=== PATIENT | female | born 1975 | race Caucasian/White ===

== ENCOUNTER 2017-06-08 05:52 | Day surgery (SDC) | payer OTHER ==
[2017-06-06 12:31] LABS: Absolute Lymphocytes (CBC) 1.9 K/uL (0.7-4.9); Absolute Monocytes 0.4 K/uL (0.1-1.3); Absolute Neutrophil 3.2 K/uL (1.8-8.0); Basophils % 0.7 % (0-1.3); Hematocrit 41.9 % (36.0-45.0); Lymphocytes % 33.7 % (15.3-44.8); MCH 30.4 pg (27.0-35.0); MPV 10.6 fL (7.6-11.3); Monocytes % 6.4 % (3.3-12.3); RBC Red Blood Cell Count 4.71 M/uL (3.86-4.86)
[2017-06-08] MEDS ORDERED: SCOPOLAMINE HYDROBROMIDE PATCH TD ONE (06:30)
[2017-06-08] MEDS ORDERED: Ringers Lactate 1,000 ML IV ONE (06:30)
[2017-06-08] MEDS ORDERED: PROPOFOL 200 MG/20 ML VIAL IV ONE (07:17)
[2017-06-08] MEDS ORDERED: LIDOCAINE 2% MPF 5 ML VIAL ONE (07:17)
[2017-06-08] MEDS ORDERED: ONDANSETRON 4 MG/2 ML VIAL ONE (07:17)
[2017-06-08] MEDS ORDERED: MIDAZOLAM HCL 2 MG/2 ML INJ ONE (07:17)
[2017-06-08] MEDS ORDERED: FENTANYL CITR 250 MCG/5 ML ONE (07:17)
[2017-06-08] MEDS ORDERED: ROCURONIUM 50 MG/5 ML VIAL IV ONE (07:17)
[2017-06-08] MEDS ORDERED: DEXAMETHASONE 10 MG/ML VIAL ONE (08:02)
[2017-06-08] MEDS ORDERED: KETOROLAC 30 MG/ML INJ ONE (09:09)
[2017-06-08] MEDS ORDERED: GLYCOPYRROLATE 0.2 MG/ML SYR ONE (09:09)
[2017-06-08] MEDS ORDERED: NEOSTIGMINE 1 MG/ML -5 ML SYRINGE ONE (09:09)
[2017-06-08] MEDS ORDERED: Mastisol Adhesive Liq ONE (09:22)
[2017-06-08] MEDS: MEPERIDINE HCL 50 MG/ML AMP ONE ×2 (09:27→09:44)
[2017-06-08] MEDS ORDERED: PROMETHAZINE 25 MG/ML VIAL ONE (09:53)
[2017-06-08] MEDS ORDERED: MEPERIDINE HCL 50 MG/ML AMP ONE (10:10)
[2017-06-08] MEDS ORDERED: METOCLOPRAMIDE 10 MG/2mL INJ ONE (10:36)
[2017-06-08 14:48] VITALS: BP 120/75; TEMP 97.3; O2SAT 98
--- NOTE | 2017-06-08 20:19 | OP ---
Date of Procedure: 06/08/2017 Surgeon: Helga Brown MD [employer] Agent: Beth Lee. Preoperative Diagnoses: Left lower quadrant pain, possible endometriosis, history of adenomyosis, st atus post hysterectomy, and Crohn disease and urinary frequency. Postoperative Diagnoses: Left lower quadrant pain, possible endometriosis, history of adenomyosis, s tatus post hysterectomy, and Crohn disease and urinary frequency and adhesions of the colon. No endo metriosis found in the pelvic peritoneum. Procedures Performed: Diagnostic laparoscopy, lysis of sigmoid adhesions, right oophorectomy. Anesthesia: General. Estimated Blood Loss: Minimal. Specimens: Right ovary. Complications: No complications. Drains: No drains. Condition: Stable. Indications: The patient is a 41-year-old, who presented with increasing pelvic pain over the last y ear, much worse progressively, more intense in the left lower quadrant. The patient had complaints o f pelvic pain and heavy bleeding. She had underwent a laparoscopic hysterectomy by me in 2013. She has done very well for the 2-1/2 years postop until this problem restarted. She has been since diagn osed with Crohn disease. She has been managed with azathioprine and Linzess and she has been doing w ell from her Crohn disease standpoint. After working up with a transvaginal ultrasound, there were n o pelvic masses found. The patient continued to have pain. Pain is much worse with intercourse as w ell. So, plan was to discuss multiple options she has including a depot medroxyprogesterone shot and oral contraceptive, which is probably not the best given her age and her other comorbidities, and th en the option of diagnostic laparoscopy to look in the pelvic cavity and possibly removing the right ovary if no other pathology is found. The patient was consented. We also discussed preoperatively a bout postop hormone therapy that she would be placed on estradiol right after the surgery since she i s only 41 years old. Description Of Procedure: After informed consent was verified, the patient was brought to the OR, pl aced in a supine fashion on the operating table after general anesthesia was given. She was placed i n a dorsal lithotomy position using Amaury stirrups. Pelvic exam was performed. No abnormalities det ected. Abdomen, vulva, vagina, and perineum were prepped and draped in a sterile fashion. Gold blanco glenda to drain the bladder. The sponge on a stick was placed in the vagina for retraction of the vagin al cuff. A 1-cm infraumbilical incision was made with a scalpel using the open laparoscopy technique. Fascia was incised and tagged on both sides. A Macario trocar was introduced after entering the peritoneum b luntly with the help of a finger. Camera was then placed. The site of entry was checked. Liver new eared to be normal. The upper peritoneal surfaces were surveyed closely and there was no evidence of endometriosis. The omentum checked out and the patient was placed in T-nolen and pelvic peritoneum i nspected. First the 5 mm left lower quadrant suprapubic 5 mm ports were placed under direct vision. The pelvic cavity was visualized. The right ovary was present on the IP pedicle. Both tubes were a bsent. The vaginal cuff was completely unremarkable. On the left lateral wall there were adhesions of the colon that started right below the level of the oophorectomy on the left side and went all the way down into the posterior cul-de-sac. There were no endometriotic lesions over the bladder perito neum or at the cuff. Once the left side was well visualized and made sure that there was no remnant of the ovary or any endometriosis present, moved on to the adhesions. They were picked up with mel h graspers and taken down with the help of sharp scissors. All the adhesions were taken down systema tically by sharp dissection all the way down in the posterior cul-de-sac as well. There were dense a dhesions at places and these were with push-spread technique and then taken down with a sha rp dissection with scissors. After all the adhesions were taken down, the sigmoid was free. The pos terior cul-de-sac was freed. This was done because the patient had complains of dyspareunia as well that was significant for her. Moved on to the right ovary, here the pedicle was free. No evidence of endometriosis, in which case we discussed about removal of the ovary, so performed this. 0 Vicryl loops were taken and 3 loops were placed on the IP pedicle and then the ovary was taken down with the help of scissors, placed in a specimen bag and pulled out. The pelvic cavity was thoroughl y irrigated and suctioned. There was excellent hemostasis. Spot below the vaginal cuff was cauteriz ed for hemostasis with the bipolar. Then, Interceed was placed laying up from the bladder all the wa y down, spreading across the vaginal cuff onto the posterior cul-de-sac to hopefully prevent more adh esions from the bowel. Then the patient was reversed from T-nolen. The gas was desufflated. All the trocars removed under direct vision. Macario removed as well. Fascia closed with the help of 0 Vicr yl in a [id number] fashion. All the skin incisions closed with the help of 4-0 Vicryl sutures a nd Steri-Strips. Gold and the vaginal sponge were all removed. EBL was minimal. The patient amanda ated the procedure well. She was recovered from anesthesia in the OR and taken to PACU in stable con dition. She will follow with me in 1 week. FINN Voice ID: [id number] Report ID: [id number]
== END 2017-06-08 10:58 | disposition home or self-care (01) ==
LOC: OR 05:52
PROVIDERS: ATTEND Obstetrics & Gynecology
PROC: 0UT04ZZ Resection of Right Ovary, Percutaneous Endoscopic Approach (ICD-10-PCS; principal; 2017-06-08 07:00)
DX: R10.32 Left lower quadrant pain (principal); N83.11 Corpus luteum cyst of right ovary; K66.0 Peritoneal adhesions (postprocedural) (postinfection); K50.90 Crohn's disease, unspecified, without complications; R35.0 Frequency of micturition; I10 Essential (primary) hypertension; J45.909 Unspecified asthma, uncomplicated; Z90.710 Acquired absence of both cervix and uterus; Z88.6 Allergy status to analgesic agent
CPT/HCPCS: 36415; 85025; 86850; 86900; 86901; 88305; J1100; J2175; J2250; J2405; J2550; J2710; J2765

== ENCOUNTER 2017-08-20 17:33 | Emergency (ER) | payer OTHER ==
[2017-08-20 18:16] LABS: Urine Blood NEGATIVE (NEG); Urine Glucose NEGATIVE (NEG); Urine Protein NEGATIVE (NEG); Urine pH 6.5 (5.0-7.0)
[2017-08-20] MEDS ORDERED: NA CHLORIDE 0.9% 1,000 ML ONE (18:24)
[2017-08-20] MEDS ORDERED: ONDANSETRON 4 MG/2 ML VIAL ONE ×2 (18:24→20:17)
[2017-08-20] MEDS ORDERED: MEPERIDINE HCL 50 MG/ML AMP ONE (18:24)
[2017-08-20 18:36] LABS: Absolute Monocytes 0.4 K/uL (0.1-1.3); Absolute Neutrophil 2.6 K/uL (1.8-8.0); Basophils % 0.7 % (0-1.3); Eosinophils % 2.2 % (0-4.4); Hematocrit 37.6 % (36.0-45.0); Lymphocytes % 37.9 % (15.3-44.8); MCH 31.1 pg (27.0-35.0); MCV 87.4 fL (80-100); MPV 10.2 fL (7.6-11.3)
[2017-08-20 18:51] LABS: Potassium 3.6 mEq/L (3.6-5.0)
[2017-08-20 18:57] LABS: Urine Bacteria <20 /HPF (<20); Urine Culture Reflex Order NOT NEEDED; Urine RBC <5 /HPF (NONE SEEN)
[2017-08-20 18:57] LABS: Albumin 4.2 g/dL (3.2-5.5); Bilirubin Direct 0.1 mg/dL (0-0.2); Bilirubin Total 0.3 mg/dL (0.3-1.2); Protein, Total 7.5 g/dL (6.0-8.3)
--- NOTE | 2017-08-20 19:27 | RAD REPORT ---
EXAM DESCRIPTION: CT - Abdomen Pelvis W Contrast - 08/20/2017 6:51 pm CLINICAL HISTORY: Abdominal pain with vomiting left upper quadrant pain COMPARISON: none. TECHNIQUE: Computed axial tomography of the abdomen pelvis was obtained. 100 cc Isovue-300 was admin istered intravenously. Oral contrast was not requested which limits evaluation of bowel. All CT scans are performed using dose optimization technique as appropriate and may include automated exposure control or mA/KV adjustment according to patient size. FINDINGS: The liver, spleen, pancreas, adrenal and kidneys appear unremarkable. The gallbladder has been removed. A hysterectomy has been performed. There is no evidence of diverticulitis. An adnexal mass is not seen IMPRESSION: No acute abnormality is displayed.
[2017-08-20] MEDS ORDERED: PROMETHAZINE 25 MG/ML VIAL ONE (20:54)
--- NOTE | 2017-08-20 22:01 | EDPHYS ---
Physician Documentation [facility] Name: Gifty Parker Age: 41 yrs Sex: Female : 1975 Arrival Date: 08/20/2017 Time: 17:36 Bed 25 Private MD: Marcio Wilson ED Physician Leonardo Barnes HPI: 08/20 19:00 This 41 yrs old Female presents to ER via Ambulatory with complaints of pm1 Nausea/Vomiting. 19:00 The patient presents to the emergency department with nausea, vomiting, diarrhea. pm1 Onset: The symptoms/episode began/occurred 3 day(s) ago. Possible causes: flare up of bowel problem, Crohn's disease. The symptoms are aggravated by food , The symptoms are alleviated by nothing. Associated signs and symptoms: Pertinent positives: abdominal pain, diarrhea, nausea, vomiting, Pertinent negatives: constipation. Severity of symptoms: in the emergency department the symptoms are worse. The patient has experienced similar episodes in the past, multiple times. 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 N/A - Hysterectomy aj Historical: - Allergies: 17:41 Morphine; aj 17:41 Hydrocodone-Acetaminophen; aj 17:41 Rifampin; aj - Home Meds: 17:41 Xifaxan 550 mg oral tab 1 tab 3 times per day [Active]; Dexilant 60 mg oral CpDB 1 cap aj once daily [Active]; azathioprine 50 mg Oral tab 1 tab once daily [Active]; estradiol 1 mg Oral tab 1 tab once daily [Active]; quetiapine 25 mg oral tab 1 tab 3 times per day [Active]; metoprolol tartrate 25 mg Oral tab 1 tab once daily [Active]; - PMHx: 17:41 Anxiety; High Cholesterol; Hypertension; provastatin; Crohn's; aj - PSHx: 17:41 Hysterectomy; Appendectomy; Cholecystectomy; aj - Immunization history:: Adult Immunizations up to date. - Social history:: Smoking status: Patient/guardian denies using tobacco. - Ebola Screening: : Patient negative for fever greater than or equal to 101.5 degrees Fahrenheit, and additional compatible Ebola Virus Disease symptoms Patient denies exposure to infectious person Patient denies travel to an Ebola-affected area in the 21 days before illness onset No symptoms or risks identified at this time. ROS: 19:00 Constitutional: Negative for fever, chills, and weight loss, Eyes: Negative for injury, pm1 pain, redness, and discharge, ENT: Negative for injury, pain, and discharge, Neck: Negative for injury, pain, and swelling, Cardiovascular: Negative for chest pain, palpitations, and edema, Respiratory: Negative for shortness of breath, cough, wheezing, and pleuritic chest pain. 19:00 Back: Negative for injury and pain, : Negative for injury, bleeding, discharge, and swelling, MS/Extremity: Negative for injury and deformity, Skin: Negative for injury, rash, and discoloration, Neuro: Negative for headache, weakness, numbness, tingling, and seizure. 19:00 Abdomen/GI: Positive for abdominal pain, nausea, vomiting, and diarrhea, of the left upper quadrant and left lower quadrant, Negative for constipation. Exam: 19:00 Constitutional: This is a well developed, well nourished patient who is awake, alert, pm1 and in no acute distress. Head/Face: Normocephalic, atraumatic. Eyes: Pupils equal round and reactive to light, extra-ocular motions intact. Lids and lashes normal. Conjunctiva and sclera are non-icteric and not injected. Cornea within normal limits. Periorbital areas with no swelling, redness, or edema. ENT: Nares patent. No nasal discharge, no septal abnormalities noted. Tympanic membranes are normal and external auditory canals are clear. Oropharynx with no redness, swelling, or masses, exudates, or evidence of obstruction, uvula midline. Mucous membranes moist. Neck: Trachea midline, no thyromegaly or masses palpated, and no cervical lymphadenopathy. Supple, full range of motion without nuchal rigidity, or vertebral point tenderness. No Meningismus. Chest/axilla: Normal chest wall appearance and motion. Nontender with no deformity. No lesions are appreciated. Cardiovascular: Regular rate and rhythm with a normal S1 and S2. No gallops, murmurs, or rubs. No pulse deficits. Respiratory: Lungs have equal breath sounds bilaterally, clear to auscultation and percussion. No rales, rhonchi or wheezes noted. No increased work of breathing, no retractions or nasal flaring. 19:00 Back: No spinal tenderness. No costovertebral tenderness. Full range of motion. Skin: Warm, dry with normal turgor. Normal color with no rashes, no lesions, and no evidence of cellulitis. MS/ Extremity: Pulses equal, no cyanosis. Neurovascular intact. Full, normal range of motion. 19:00 Abdomen/GI: Inspection: abdomen appears normal, Bowel sounds: normal, Palpation: abdomen is soft and non-tender, mass, is not appreciated, rebound tenderness, is not appreciated. 19:00 Neuro: Orientation: is normal, Motor: moves all fours, strength is normal, strength is 5/5 in all extremities. Vital Signs: 17:41 BP 139 / 89; Pulse 66; Resp 17; Temp 98.0; Pulse Ox 99% on R/A; Weight 74.39 kg; Height aj 5 ft. 4 in. (162.56 cm); 19:10 BP 112 / 75; Pulse 52; Resp 16; Pulse Ox 99% on R/A; kr2 20:33 BP 104 / 67; Pulse 56; Resp 17; Pulse Ox 100% on R/A; kr2 22:09 BP 110 / 65; Pulse 60; Resp 16; Pulse Ox 99% on R/A; kr2 17:41 Body Mass Index 28.15 (74.39 kg, 162.56 cm) aj MDM: 18:01 Patient medically screened. pm1 21:50 Physician consultation: Elisabeth Hooker MD was contacted at 21:50, regarding patient's pm1 condition, Patient requested admission for further evaluation and treatment of vomiting and diarrhea. Discussed patient's condition and presentation with hospitalist. Patient without any active vomiting or diarrhea in the ER. Discussed patient's labs and CT scan and patient does not meet any admission criteria. Likely viral gastroenteritis. Patient will be discharged to follow up with her GI or PCP. 21:58 Data reviewed: vital signs. Data interpreted: Pulse oximetry: on room air is 100 %. pm1 Interpretation: normal. 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 22:00 ED course: Offered patient pain and antiemetics prescription. Patient refused saying pm1 she has Zofran, Phenergan, and Bentyl at home already from Dr. Benoit. 08/20 18:09 Order name: Basic Metabolic Panel; Complete Time: 19:27 pm1 08/20 18:09 Order name: CBC with Diff; Complete Time: 19:27 pm1 08/20 18:09 Order name: Creatinine for Radiology; Complete Time: 19:27 pm1 08/20 18:09 Order name: Hepatic Function; Complete Time: 19:27 pm1 08/20 18:09 Order name: Lipase; Complete Time: 19:27 pm1 08/20 18:09 Order name: Urine Microscopic Only; Complete Time: 19:27 pm1 08/20 18:09 Order name: Urine Test (obtain specimen); Complete Time: 18:16 pm1 08/20 18:09 Order name: CT Abd/Pelvis - W/Contrast: IV contrast only; Complete Time: 19:45 pm1 08/20 18:10 Order name: Urine Dipstick--Ancillary (enter results); Complete Time: 19:27 em1 08/20 18:09 Order name: IV Saline Lock; Complete Time: 18:22 pm1 08/20 18:09 Order name: Labs collected and sent; Complete Time: 18:22 pm1 08/20 18:09 Order name: Urine Dipstick-Ancillary (obtain specimen); Complete Time: 18:35 pm1 08/20 18:10 Order name: Urine Dipstick-Ancillary (obtain specimen); Complete Time: 18:36 em1 Administered Medications: 18:35 Drug: NS 0.9% 1000 ml Route: IV; Rate: 1000 ml; Site: left antecubital; kr2 20:00 Follow up: Response: No adverse reaction; IV Status: Completed infusion kr2 18:35 Drug: Demerol 50 mg Route: IVP; Site: left antecubital; kr2 19:00 Follow up: Response: No adverse reaction; Pain is decreased kr2 18:35 Drug: Zofran 4 mg Route: IVP; Site: left antecubital; kr2 22:10 Follow up: Response: No adverse reaction kr2 20:18 Drug: Zofran 4 mg Route: IVP; Site: left antecubital; kr2 20:30 Follow up: Response: No adverse reaction; Nausea unchanged kr2 21:00 Drug: Phenergan 25 mg Route: IVP; Site: left antecubital; kr2 22:10 Follow up: Response: No adverse reaction; Vomiting decreased kr2 Disposition: 08/21 07:58 Co-signature as Attending Physician, Leonardo Barnes MD. Disposition: 08/20/17 22:00 Discharged to Home. Impression: Nausea and vomiting, Diarrhea, unspecified. - Condition is Stable. - Discharge Instructions: Diarrhea, Nausea and Vomiting, Viral Gastroenteritis. - Medication Reconciliation Form, Thank You Letter form. - Follow up: Emergency Department; When: As needed; Reason: Worsening of condition. Follow up: Jf Benoit MD; When: 2 - 3 days; Reason: Recheck today's complaints, Continuance of care, Re-evaluation by your physician. - Problem is new. - Symptoms have improved. Signatures: Dispatcher [employer] EDMS aMrisol Garcia, RN RN Clifford Tirado em1 Arden Medeiros, CANOE INSPECTOR CANOE INSPECTOR pm1 Leonardo Barnes MD MD Luly Montoya RN RN kr2 Corrections: (The following items were deleted from the chart) 08/20 22:11 22:00 08/20/2017 22:00 Discharged to Home. Impression: Nausea and vomiting; Diarrhea, kr2 unspecified. Condition is Stable. Forms are Medication Reconciliation Form, Thank You Letter, Antibiotic Education, Prescription Opioid Use. Follow up: Emergency Department; When: As needed; Reason: Worsening of condition. Follow up: Jf Benoit; When: 2 - 3 days; Reason: Recheck today's complaints, Continuance of care, Re-evaluation by your physician. Problem is new. Symptoms have improved. pm1
--- NOTE | 2017-08-20 22:01 | ER ---
Nurse's Notes [facility] Name: Gifty Parker Age: 41 yrs Sex: Female : 1975 Arrival Date: 08/20/2017 Time: 17:36 Bed 25 Private MD: Marcio Wilson Diagnosis: Nausea and vomiting;Diarrhea, unspecified Presentation: 08/20 17:39 Presenting complaint: Patient states: Vomiting for 3 days. Transition of care: patient aj was not received from another setting of care. Onset of symptoms was August 18, 2017. Risk Assessment: Do you want to hurt yourself or someone else? Patient reports no desire to harm self or others. Initial Sepsis Screen: Does the patient meet any 2 criteria? No. Patient's initial sepsis screen is negative. Does the patient have a suspected source of infection? No. Patient's initial sepsis screen is negative. Care prior to arrival: Medication(s) given: Phenergan, 25 mg. 17:39 Method Of Arrival: Ambulatory aj 17:39 Acuity: TAMAR 3 aj Triage Assessment: 17:41 General: Appears in no apparent distress. comfortable, Behavior is calm, cooperative, aj appropriate for age. Pain: Denies pain. Neuro: Level of Consciousness is awake, alert, obeys commands, Oriented to person, place, time, situation, Appropriate for age. Respiratory: Airway is patent Respiratory effort is even, unlabored, Respiratory pattern is regular, symmetrical. GI: Reports nausea, vomiting. Derm: Skin is intact, is healthy with good turgor, Skin is pink, warm \T\ dry. normal. 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 - Hysterectomy aj Historical: - Allergies: 17:41 Morphine; aj 17:41 Hydrocodone-Acetaminophen; aj 17:41 Rifampin; aj - Home Meds: 17:41 Xifaxan 550 mg oral tab 1 tab 3 times per day [Active]; Dexilant 60 mg oral CpDB 1 cap aj once daily [Active]; azathioprine 50 mg Oral tab 1 tab once daily [Active]; estradiol 1 mg Oral tab 1 tab once daily [Active]; quetiapine 25 mg oral tab 1 tab 3 times per day [Active]; metoprolol tartrate 25 mg Oral tab 1 tab once daily [Active]; - PMHx: 17:41 Anxiety; High Cholesterol; Hypertension; provastatin; Crohn's; aj - PSHx: 17:41 Hysterectomy; Appendectomy; Cholecystectomy; aj - Immunization history:: Adult Immunizations up to date. - Social history:: Smoking status: Patient/guardian denies using tobacco. - Ebola Screening: : Patient negative for fever greater than or equal to 101.5 degrees Fahrenheit, and additional compatible Ebola Virus Disease symptoms Patient denies exposure to infectious person Patient denies travel to an Ebola-affected area in the 21 days before illness onset No symptoms or risks identified at this time. Screenin:00 Abuse screen: Denies threats or abuse. Denies injuries from another. Nutritional kr2 screening: No deficits noted. Tuberculosis screening: No symptoms or risk factors identified. Fall Risk None identified. Assessment: 18:00 General: Appears in no apparent distress. uncomfortable, well groomed, well developed, kr2 well nourished, Behavior is calm, cooperative, appropriate for age. Pain: Complains of pain in left upper quadrant and left lower quadrant Pain currently is 8 out of 10 on a pain scale. Quality of pain is described as crampy, sharp, tender, Is continuous, Alleviated by nothing. Aggravated by eating, drinking, repositioning, Noted to be grimacing. Neuro: Level of Consciousness is awake, alert, obeys commands, Oriented to person, place, time, situation, Appropriate for age. Cardiovascular: Capillary refill < 3 seconds in bilateral fingers Patient's skin is warm and dry. Respiratory: Airway is patent Respiratory effort is even, unlabored, Respiratory pattern is regular, symmetrical. GI: Abdomen is flat, non-distended, Bowel sounds present X 4 quads. hyperactive in left lower quadrant Reports diarrhea, intolerance of fluids, intolerance of food, nausea, vomiting, history of Crohn's. : No signs and/or symptoms were reported regarding the genitourinary system. Urine is clear. EENT: Oral mucosa is moist. Derm: Skin is intact, is healthy with good turgor, Skin is dry, Skin is pale, pink, Skin temperature is warm. Musculoskeletal: Circulation, motion, and sensation intact. 19:11 Reassessment: Patient appears in no apparent distress at this time. Patient and/or kr2 family updated on plan of care and expected duration. Pain level reassessed. Patient is alert, oriented x 3, equal unlabored respirations, skin warm/dry/pink. 20:32 Reassessment: Patient appears in no apparent distress at this time. Patient and/or kr2 family updated on plan of care and expected duration. Pain level reassessed. Patient is alert, oriented x 3, equal unlabored respirations, skin warm/dry/pink. Patient states she is still having mild pain and was dry heaving. Provider notified. 22:08 Reassessment: Patient appears in no apparent distress at this time. Patient and/or kr2 family updated on plan of care and expected duration. Pain level reassessed. Patient is alert, oriented x 3, equal unlabored respirations, skin warm/dry/pink. No further vomiting after receiving phenergan IVP. Vital Signs: 17:41 BP 139 / 89; Pulse 66; Resp 17; Temp 98.0; Pulse Ox 99% on R/A; Weight 74.39 kg; Height aj 5 ft. 4 in. (162.56 cm); 19:10 BP 112 / 75; Pulse 52; Resp 16; Pulse Ox 99% on R/A; kr2 20:33 BP 104 / 67; Pulse 56; Resp 17; Pulse Ox 100% on R/A; kr2 22:09 BP 110 / 65; Pulse 60; Resp 16; Pulse Ox 99% on R/A; kr2 17:41 Body Mass Index 28.15 (74.39 kg, 162.56 cm) aj ED Course: 17:36 Patient arrived in ED. sb2 17:36 Marcio Wilson MD is Private Physician. sb2 17:39 Triage completed. aj 17:41 Arm band placed on left wrist. Patient placed in waiting room. aj 18:00 Patient has correct armband on for positive identification. Bed in low position. Call kr2 light in reach. Side rails up X 1. Pulse ox on. NIBP on. Door closed. Warm blanket given. Head of bed elevated. 18:01 Arden Medeiros NP is PHCP. pm1 18:01 Leonardo Barnes MD is Attending Physician. pm1 18:10 Luly Montoya RN is Primary Nurse. kr2 18:22 Inserted saline lock: 20 gauge in left antecubital area, using aseptic technique. Blood aj collected. 18:51 CT Abd/Pelvis - W/Contrast: IV contrast only In Process Unspecified. EDMS 19:09 No provider procedures requiring assistance completed. kr2 21:59 Jf Benoit MD is Referral Physician. pm1 22:09 IV discontinued, intact, bleeding controlled, No redness/swelling at site. Pressure kr2 dressing applied. Administered Medications: 18:35 Drug: NS 0.9% 1000 ml Route: IV; Rate: 1000 ml; Site: left antecubital; kr2 20:00 Follow up: Response: No adverse reaction; IV Status: Completed infusion kr2 18:35 Drug: Demerol 50 mg Route: IVP; Site: left antecubital; kr2 19:00 Follow up: Response: No adverse reaction; Pain is decreased kr2 18:35 Drug: Zofran 4 mg Route: IVP; Site: left antecubital; kr2 22:10 Follow up: Response: No adverse reaction kr2 20:18 Drug: Zofran 4 mg Route: IVP; Site: left antecubital; kr2 20:30 Follow up: Response: No adverse reaction; Nausea unchanged kr2 21:00 Drug: Phenergan 25 mg Route: IVP; Site: left antecubital; kr2 22:10 Follow up: Response: No adverse reaction; Vomiting decreased kr2 Outcome: 22:00 Discharge ordered by MD. pm1 22:08 Discharged to home ambulatory, with family. kr2 22:08 Condition: improved 22:08 Discharge instructions given to patient, family, Instructed on discharge instructions, follow up and referral plans. Demonstrated understanding of instructions, follow-up care. 22:11 Patient left the ED. kr2 Signatures: Dispatcher [employer] EDMS Marisol Garcia RN RN aj Marinas, Patrick, NP SSRS DEVELOPER pm1 Luly Montoya RN RN kr2 Ladan Leal sb2 Corrections: (The following items were deleted from the chart) 20:33 20:32 Reassessment: Patient appears in no apparent distress at this time. Patient kr2 and/or family updated on plan of care and expected duration. Pain level reassessed. Patient is alert, oriented x 3, equal unlabored respirations, skin warm/dry/pink. Patient states she is still having mild pain and was dry heaving kr2
[2017-08-20 22:43] VITALS: TEMP 98
[2017-08-20 22:47] VITALS: BP 110/65; O2SAT 99
== END 2017-08-20 22:11 | disposition home or self-care (01) ==
LOC: ER 17:33
DX: R19.7 Diarrhea, unspecified (principal); I10 Essential (primary) hypertension; E78.00 Pure hypercholesterolemia, unspecified; F41.9 Anxiety disorder, unspecified; Z88.5 Allergy status to narcotic agent; Z88.8 Allergy status to other drugs, medicaments and biological substances
CPT/HCPCS: 36415; 74177; 80048; 80076; 81003; 81015; 83690; 85025; 96361; 96374; 96375; 99284; J2175; J2405; J2550; J7030; Q9967

== ENCOUNTER 2017-08-23 16:32 | Observation (INO) | payer OTHER ==
[2017-08-23] MEDS ORDERED: ACETAMINOPHEN 500 MG TAB PO PRN (17:24)
[2017-08-23 18:02] LABS: Absolute Neutrophil 2.1 K/uL (1.8-8.0); Basophils % 0.9 % (0-1.3)
--- NOTE | 2017-08-23 18:02 | P.HP ---
Certification for Inpatient Patient admitted to: Observation With expected LOS: <2 Midnights Patient will require the following post-hospital care: None Practitioner: I am a practitioner with admitting privileges, knowledge of patient current condition, hospital course, and medical plan of care. Services: Services provided to patient in accordance with Admission requirements found in Title 42 Section 412.3 of the Code of Federal Regulations Patient History Date of Service: 08/24/17 Primary Care Provider: Dr Wilson Reason for admission: Intractable Nausea and vomitting History of Present Illness: This is a 41-year-old female with significant past medical history of chronic epigastric pain who was diagnosed with IBD by GI who presented to the hospital from GI clinic for intractable nausea and vomiting. Patient has been having epigastric pain along with intractable nausea and vomiting for several months now extensive workup has been done by GI outpatient however patient has not had any definitive diagnosis. Patient for last 2-3 days has not been able to keep anything down and thus was referred over for admission for further care. Patient has the recent EGD which was also nondiagnostic. Patient has been taking medications for high BP along with depression and anxiety. Patient is seen by GI outpatient on a regular basis for her epigastric pain along with nausea vomiting. Allergies brompheniramine maleate [From Drixoral] Allergy (Verified 06/06/17 11:52) Rash dexbrompheniramine maleate [From Drixoral] Allergy (Verified 06/06/17 11:52) Rash hydrocodone Allergy (Verified 06/06/17 11:52) Nausea/Vomiting morphine Allergy (Verified 06/06/17 11:52) Nausea/Vomiting pseudoephedrine HCl [From Drixoral] Allergy (Verified 06/06/17 11:52) Rash pseudoephedrine sulfate [From Drixoral] Allergy (Verified 06/06/17 11:52) Rash drixoral Allergy (Uncoded 06/06/17 11:52) Unknown Hydrocodone-Aceta Allergy (Uncoded 06/06/17 11:52) Unknown Home Medications: Dexlansoprazole [Dexilant] 60 mg PO DAILY 06/06/17 Linaclotide [Linzess] 72 mcg PO DAILY 06/06/17 Metoprolol Tartrate [Lopressor*] 25 mg PO [id number] 06/06/17 azaTHIOprine [Imuran*] 50 mg PO DAILY 06/06/17 Methylprednisolone [Medrol dosepack] 4 mg PO DIRECTED 08/23/17 Promethazine HCl 25 mg PO Q6HP PRN 08/23/17 Quetiapine Fumarate [Seroquel] 50 mg PO BEDTIME 08/23/17 Rifaximin [Xifaxan] 550 mg PO TID 08/23/17 Tramadol HCl [Ultram] 50 mg PO Q12HR 08/23/17 Ondansetron [Zofran Odt] 4 mg PO DAILY PRN #5 tab.rapdis 08/24/17 - Past Medical/Surgical History Diabetic: No -: HTN -: Depression -: Appendectomy -: Hysterectomy -: Cholecystectomy - Family History Father -: Cancer Notes: colon cancer - Social History Alcohol use: No CD- Drugs: No Caffeine use: Yes Review of Systems General: As per HPI Physical Examination - Physical Exam General: Alert, In no apparent distress HEENT: Atraumatic, PERRLA, Mucous membr. moist/pink, EOMI, Sclerae nonicteric Neck: Supple, 2+ carotid pulse no bruit, No LAD, Without JVD or thyroid abnormality Respiratory: Clear to auscultation bilaterally, Normal air movement Cardiovascular: Regular rate/rhythm, Normal S1 S2 Gastrointestinal: Normal bowel sounds, No tenderness Musculoskeletal: No tenderness Integumentary: No rashes Neurological: Normal gait, Normal speech, Normal strength at 5/5 x4 extr, Normal tone, Normal affect Lymphatics: No axilla or inguinal lymphadenopathy Assessment and Plan - Problems (Diagnosis) (1) Abdominal pain Onset Date: 08/24/17 Status: Acute Plan: Acute on chronic generalized abd pain. Most likely 2.2 to IBD. -S/P EGD with GI -IV fluids and cipro/flagyl -GMS and MRCP ordered -GI consulted. Qualifiers: Abdominal location: generalized Qualified Code(s): R10.84 - Generalized abdominal pain (2) Intractable nausea and vomiting Onset Date: 08/24/17 Status: Acute Plan: Unknown etiology at this time. -GI consulted. Awaiting for reccs -IV fluids and zofran for now -MRCP and Gastric Emptying studied ordered Qualifiers: Vomiting type: cyclical vomiting Qualified Code(s): G43.A1 - Cyclical vomiting, intractable (3) IBD (inflammatory bowel disease) Onset Date: 08/24/17 Status: Chronic Plan: On Imuran will continue. (4) Hypertension Onset Date: 11/25/14 Status: Chronic Plan: Will restart home medication Qualifiers: Hypertension type: essential hypertension Qualified Code(s): I10 - Essential (primary) hypertension - Advance Directives Does patient have a Living Will: No Does patient have a Durable POA for Healthcare: No
[2017-08-23 18:05] LABS: Absolute Monocytes 0.4 K/uL (0.1-1.3); Eosinophils % 3.3 % (0-4.4); Hematocrit 37.1 % (36.0-45.0); Lymphocytes % 42.4 % (15.3-44.8); MCH 30.2 pg (27.0-35.0); MPV 10.5 fL (7.6-11.3); Monocytes % 7.6 % (3.3-12.3); RBC Red Blood Cell Count 4.17 M/uL (3.86-4.86)
[2017-08-23 18:09] VITALS: BMI 27.4
[2017-08-23] MEDS: NA CHLORIDE 0.9% 1,000 ML IV SCH (18:43)
[2017-08-23] MEDS: METRONIDAZOLE 500mg IVPB 500 MG/100 ML BAG IV SCH (18:43)
[2017-08-23] MEDS: ONDANSETRON 4 MG/2 ML VIAL IV PRN (18:45)
[2017-08-23 18:49] LABS: Amylase Level 36 U/L (25-115); Lipase 86 U/L (73-393)
[2017-08-23 18:54] LABS: Albumin 3.7 g/dL (3.4-5.0); Bilirubin Total 0.4 mg/dL (0.2-1.0); Potassium 3.8 mmol/L (3.5-5.1); Protein, Total 7.5 g/dL (6.4-8.2)
[2017-08-23 19:45] LABS: Urine Appearance CLEAR; Urine Bilirubin NEGATIVE (NEG); Urine Blood NEGATIVE (NEG); Urine Color YELLOW; Urine Glucose NEGATIVE (NEG); Urine Protein NEGATIVE (NEG); Urine Specific Gravity 1.015 (1.005-1.030)
[2017-08-23 20:07] LABS: Urine Microscopic Reflex NO UMIC
[2017-08-23] MEDS ORDERED: QUETIAPINE 25 MG TAB PO SCH (21:00)
--- NOTE | 2017-08-23 21:31 | RAD REPORT ---
EXAM DESCRIPTION: MRICholangiogram08/23/2017 8:52 pm CLINICAL HISTORY: Abdominal pain with nausea and vomiting COMPARISON: August 20, 2017 cat scan TECHNIQUE: Magnetic resonance cholangiogram was performed. Source images were reviewed and reconstru cted at 360 degrees rotation FINDINGS: The gallbladder has been removed. The biliary tree is normal caliber without a filling defect. The pancreatic duct is normal caliber. IMPRESSION: Unremarkable exam
[2017-08-23] MEDS: CIPROFLOXACIN 400mg IV 400 MG/200 ML BAG IV SCH (22:08)
[2017-08-24] MEDS: METRONIDAZOLE 500mg IVPB 500 MG/100 ML BAG IV SCH ×2 (00:51→09:26)
[2017-08-24] MEDS: NA CHLORIDE 0.9% 1,000 ML IV SCH (04:00)
[2017-08-24 05:02] LABS: Absolute Lymphocytes (CBC) 1.6 K/uL (0.7-4.9); Absolute Monocytes 0.3 K/uL (0.1-1.3); Absolute Neutrophil 1.8 K/uL (1.8-8.0); Basophils % 0.7 % (0-1.3); Eosinophils % 3.2 % (0-4.4); Hematocrit 32.9 % (36.0-45.0); Lymphocytes % 40.6 % (15.3-44.8); MCH 30.6 pg (27.0-35.0); MCV 88.9 fL (80-100); MPV 10.2 fL (7.6-11.3); Monocytes % 8.7 % (3.3-12.3)
[2017-08-24 05:27] LABS: Bilirubin Total 0.5 mg/dL (0.2-1.0); Magnesium 2.3 mg/dL (1.8-2.4); Phosphorus 3.8 mg/dL (2.5-4.9); Potassium 3.8 mmol/L (3.5-5.1); Protein, Total 6.1 g/dL (6.4-8.2)
[2017-08-24] MEDS ORDERED: METOPROLOL TAR 25 MG TAB PO SCH (06:00)
[2017-08-24] MEDS: ONDANSETRON 4 MG/2 ML VIAL IV PRN (06:18)
[2017-08-24 06:54] VITALS: O2SAT 100
[2017-08-24] MEDS ORDERED: PANTOPRAZOLE 40MG TABLET PO SCH (07:30)
[2017-08-24 08:28] VITALS: BP 111/69; TEMP 97.2
[2017-08-24] MEDS ORDERED: AZATHIOPRINE 50 MG TABLET PO SCH (09:00)
[2017-08-24] MEDS ORDERED: LINACLOTIDE 72 MCG PO SCH (09:00)
[2017-08-24] MEDS ORDERED: HOME MED 1 EA UNK (Dexlansoprazole [Dexilant] 60 MG) PO SCH (09:00)
[2017-08-24] MEDS: CIPROFLOXACIN 400mg IV 400 MG/200 ML BAG IV SCH (09:26)
--- NOTE | 2017-08-24 09:51 | RAD REPORT ---
EXAM DESCRIPTION: NM - Gastric Emptying Study - 08/24/2017 8:52 am CLINICAL HISTORY: Abdominal pain, nausea and vomiting COMPARISON: None. TECHNIQUE: The patient was administered approximately 1 mCi Tc 99m sulfur colloid in solid egg meal. Imaging of the left upper quadrant was performed with time/activity curve generated. FINDINGS: Cine-loop images show normal progression of the radiopharmaceutical from the stomach into the small bowel. Time to one-half activity is 56 minutes, normal. Calculated retention at 2 hours was 13%. No other significant findings. IMPRESSION: Normal gastric emptying study as detailed.
--- NOTE | 2017-08-24 13:45 | P.SSS ---
Patient History Date of Service: 08/24/17 Primary Care Provider: Dr Wilson Reason for admission: Intractable Nausea and vomitting History of Present Illness: This is a 41-year-old female with significant past medical history of chronic epigastric pain who was diagnosed with IBD by GI who presented to the hospital from GI clinic for intractable nausea and vomiting. Patient has been having epigastric pain along with intractable nausea and vomiting for several months now extensive workup has been done by GI outpatient however patient has not had any definitive diagnosis. Patient for last 2-3 days has not been able to keep anything down and thus was referred over for admission for further care. Patient has the recent EGD which was also nondiagnostic. Patient has been taking medications for high BP along with depression and anxiety. Patient is seen by GI outpatient on a regular basis for her epigastric pain along with nausea vomiting. Allergies brompheniramine maleate [From Drixoral] Allergy (Verified 06/06/17 11:52) Rash dexbrompheniramine maleate [From Drixoral] Allergy (Verified 06/06/17 11:52) Rash hydrocodone Allergy (Verified 06/06/17 11:52) Nausea/Vomiting morphine Allergy (Verified 06/06/17 11:52) Nausea/Vomiting pseudoephedrine HCl [From Drixoral] Allergy (Verified 06/06/17 11:52) Rash pseudoephedrine sulfate [From Drixoral] Allergy (Verified 06/06/17 11:52) Rash drixoral Allergy (Uncoded 06/06/17 11:52) Unknown Hydrocodone-Aceta Allergy (Uncoded 06/06/17 11:52) Unknown Home Medications: Dexlansoprazole [Dexilant] 60 mg PO DAILY 06/06/17 Linaclotide [Linzess] 72 mcg PO DAILY 06/06/17 Metoprolol Tartrate [Lopressor*] 25 mg PO [id number] 06/06/17 azaTHIOprine [Imuran*] 50 mg PO DAILY 06/06/17 Methylprednisolone [Medrol dosepack] 4 mg PO DIRECTED 08/23/17 Promethazine HCl 25 mg PO Q6HP PRN 08/23/17 Quetiapine Fumarate [Seroquel] 50 mg PO BEDTIME 08/23/17 Rifaximin [Xifaxan] 550 mg PO TID 08/23/17 Tramadol HCl [Ultram] 50 mg PO Q12HR 08/23/17 Ondansetron [Zofran Odt] 4 mg PO DAILY PRN #5 tab.rapdis 08/24/17 - Past Medical/Surgical History Has patient received pneumonia vaccine in the past: No Diabetic: No -: HTN -: Depression -: Appendectomy -: Hysterectomy -: Cholecystectomy - Family History Father -: Cancer Notes: colon cancer - Social History Smoking Status: Never smoker Alcohol use: No CD- Drugs: No Caffeine use: Yes Place of Residence: Home Review of Systems General: As per HPI Physical Examination - Vital Signs Temperature: 97.2 F Blood Pressure: 111/69 Pulse: 63 Respirations: 16 Pulse Ox (%): 99 - Physical Exam General: Alert, In no apparent distress HEENT: Atraumatic, PERRLA, Mucous membr. moist/pink, EOMI, Sclerae nonicteric Neck: Supple, 2+ carotid pulse no bruit, No LAD, Without JVD or thyroid abnormality Respiratory: Clear to auscultation bilaterally, Normal air movement Cardiovascular: Regular rate/rhythm, Normal S1 S2 Gastrointestinal: Normal bowel sounds, No tenderness Musculoskeletal: No tenderness Integumentary: No rashes Neurological: Normal gait, Normal speech, Normal strength at 5/5 x4 extr, Normal tone, Normal affect Lymphatics: No axilla or inguinal lymphadenopathy - Studies Laboratory Data (last 24 hrs) 08/24/17 04:39: Sodium 139, Potassium 3.8, BUN 10, Creatinine 0.90, Glucose 82, Phosphorus 3.8, Magnesium 2.3, Total Bilirubin 0.5, AST 14 L, ALT 14, Alkaline Phosphatase 70 08/24/17 04:39: WBC 3.9 L D, Hgb 11.3 L, Hct 32.9 L, Plt Count 178 08/23/17 17:54: Amylase 36, Lipase 86 08/23/17 17:54: Sodium 142, Potassium 3.8, BUN 9, Creatinine 0.90, Glucose 78, Total Bilirubin 0.4, AST 19, ALT 18, Alkaline Phosphatase 90 08/23/17 17:45: WBC 4.6, Hgb 12.6, Hct 37.1, Plt Count 213 - Diagnosis (Problem(s)) (1) Abdominal pain Onset Date: 08/24/17 Status: Acute Plan: Acute on chronic generalized abd pain. Most likely 2.2 to IBD. Mild and improved -S/P EGD with GI with no acute finding. -GES negative and MRCP WNL as well -GI consulted. Reccs DC home and f/u OP Qualifiers: Abdominal location: generalized Qualified Code(s): R10.84 - Generalized abdominal pain (2) Intractable nausea and vomiting Onset Date: 08/24/17 Status: Resolved Qualifiers: Vomiting type: cyclical vomiting Qualified Code(s): G43.A1 - Cyclical vomiting, intractable (3) IBD (inflammatory bowel disease) Onset Date: 08/24/17 Status: Chronic Plan: On Imuran will continue. (4) Hypertension Onset Date: 11/25/14 Status: Chronic Qualifiers: Hypertension type: essential hypertension Qualified Code(s): I10 - Essential (primary) hypertension - Disposition Disposition: ROUTINE DISCHARGE Condition: GOOD Patient Discharge Instructions: Please f.u with PCP and GI in 1 to 2 week post discharge. No new medication. You will be scheduled for Capsule Endoscopy with Dr Daley at the [facility] Diet: Regular Activity: Ad bradley
== END 2017-08-24 11:16 | disposition home or self-care (01) ==
LOC: 4TH 17:12
PROVIDERS: ADMIT Family Medicine; ATTEND Family Medicine
DX: R11.2 Nausea with vomiting, unspecified (principal); R10.9 Unspecified abdominal pain; I10 Essential (primary) hypertension; F32.9 Major depressive disorder, single episode, unspecified; K63.89 Other specified diseases of intestine
CPT/HCPCS: 36415; 74181; 78264; 80053; 81003; 82150; 83690; 83735; 84100; 85025; A9541; G0378; J0744; J2405; J7030; J7500

== ENCOUNTER 2018-04-17 17:44 | Emergency (ER) | payer OTHER, BC ==
--- OUTSIDE RECORDS SUMMARY | 2018-04-17 17:47 | XMS REPORT | Clinical Summary ---
:1975 Author Organization [facility] Address [address] [place] [address] Care Team Providers Name Role Phone Marcio Wilson MD Primary Care Provider Allergies Active Allergy Reactions Severity Noted Date Comments Hydrocodone 08/25/2017 Morphine 08/25/2017 Rifampin 08/25/2017 Medications Medication Sig Dispensed Refills Start Date End Date Status riFAXimin (XIFAXAN) Take 550 mg 0 Active 550 mg tablet by mouth 2 (two) times a day. azaTHIOprine (IMURAN) Take 50 mg by 0 Active 50 mg tablet mouth daily. estradiol (ESTRACE) 1 Take 1 mg by 0 Active MG tablet mouth daily. QUEtiapine (SEROquel) Take 25 mg by 0 Active 25 MG tablet mouth nightly. metoprolol tartrate Take 25 mg by 0 Active (LOPRESSOR) 25 mg mouth 2 (two) tablet times a day. dexlansoprazole Take 60 mg by 0 Discontinued (DEXILANT) 60 mg mouth daily. 8 capsule pantoprazole Take 1 tablet 60 tablet 0 08/27/2017 Discontinued (PROTONIX) 40 MG EC (40 mg total) 8 tablet by mouth 2 (two) times a day for 30 days. dicyclomine (BENTYL) Take 1 90 capsule 0 08/27/2017 Discontinued 10 MG capsule capsule (10 8 mg total) by mouth 3 (three) times a day before meals for 30 days. dicyclomine (BENTYL) Take 1 90 capsule 0 08/27/2017 10 MG capsule capsule (10 8 mg total) by mouth 3 (three) times a day before meals for 30 days. pantoprazole Take 1 tablet 60 tablet 0 08/27/2017 (PROTONIX) 40 MG EC (40 mg total) 8 tablet by mouth 2 (two) times a day for 30 days. Active Problems Problem Noted Date Intractable vomiting with nausea 08/26/2017 Hx of Crohn's disease 08/26/2017 History of endometriosis 08/26/2017 GERD (gastroesophageal reflux disease) 08/26/2017 Encounters Date Type Specialty Care Team Description 10/24/2017 Hospital Encounter Radiology Domingo Mcduffie Abnormal findings- gastrointestinal tract; MD Renata Mild dietary indigestion; Radiology, Blood in stool Nurse, RN 10/24/2017 Hospital Encounter Radiology Domingo Mcduffie Abnormal findings- gastrointestinal tract; MD Renata Mild dietary indigestion; Radiology, Blood in stool Nurse, RN 10/18/2017 Transcribe Orders Access Domingo Mcduffie Abnormal findings- gastrointestinal tract (Primary Dx); MD Renata Mild dietary indigestion; Blood in stool 08/25/2017 - Emergency General Internal Teri Kebede Intractable vomiting with nausea, unspecified vomiting type (Primary Dx); 08/27/2017 Medicine MD Keisha Left upper quadrant pain Yaya Anderson DO after 04/16/2017 Social History Tobacco Use Types Packs/Day Years Used Date Never Assessed Sex Assigned at Date Recorded Not on file Job Start Date Occupation Industry Not on file Not on file Not on file Travel History Travel Start Travel End No recent travel history available. Last Filed Vital Signs Vital Sign Reading Time Taken Blood Pressure 102/67 08/27/2017 8:20 AM CDT Pulse 62 08/27/2017 8:20 AM CDT Temperature 36.3 C (97.3 F) 08/27/2017 8:20 AM CDT Respiratory Rate 18 08/27/2017 8:20 AM CDT Oxygen Saturation 97% 08/27/2017 8:20 AM CDT Inhaled Oxygen Concentration - - Weight 73.3 kg (161 lb 8 oz) 08/26/2017 1:52 AM CDT Height 162.6 cm (5' 4") 08/26/2017 1:52 AM CDT Body Mass Index 27.72 08/26/2017 1:52 AM CDT Plan of Treatment Health Maintenance Due Date Last Done Comments CERVICAL CANCER SCREENING 1997 INFLUENZA VACCINE 10/05/2017 Procedures Procedure Name Priority Date/Time Associated Comments Diagnosis MRI PELVIS W WO Routine 10/24/2017 1:38 Abnormal Results for this CONTRAST PM CDT findings-gastrointe procedure are in stinal tract the results Mild dietary section. indigestion Blood in stool MRI ABDOMEN W WO Routine 10/24/2017 1:37 Abnormal Results for this CONTRAST PM CDT findings-gastrointe procedure are in stinal tract the results Mild dietary section. indigestion Blood in stool ZZESTIMATED GFR Routine 08/27/2017 4:58 Results for this AM CDT procedure are in the results section. HC COMPLETE BLD COUNT Routine 08/27/2017 4:58 Results for this W/AUTO DIFF AM CDT procedure are in the results section. BASIC METABOLIC PANEL Routine 08/27/2017 4:58 Results for this AM CDT procedure are in the results section. URINE DRUGS OF ABUSE Routine 08/26/2017 4:06 Results for this SCREEN PM CDT procedure are in the results section. SEDIMENTATION RATE Routine 08/26/2017 2:55 Results for this PM CDT procedure are in the results section. C-REACTIVE PROTEIN Routine 08/26/2017 2:55 Results for this PM CDT procedure are in the results section. MRI PELVIS W WO Routine 08/26/2017 2:10 Results for this CONTRAST PM CDT procedure are in the results section. MRI ABDOMEN W WO Routine 08/26/2017 2:10 Results for this CONTRAST PM CDT procedure are in the results section. ECG 12-LEAD STAT 08/26/2017 7:50 Results for this AM CDT procedure are in the results section. ZZESTIMATED GFR Routine 08/26/2017 5:15 Results for this AM CDT procedure are in the results section. COMPREHENSIVE Routine 08/26/2017 5:15 Results for this METABOLIC PANEL AM CDT procedure are in the results section. HC COMPLETE BLD COUNT Routine 08/26/2017 5:15 Results for this W/AUTO DIFF AM CDT procedure are in the results section. LACTIC ACID LEVEL, Timed 08/26/2017 5:15 Results for this SEPSIS - NOW AND AM CDT procedure are in REPEAT 2X EVERY [address] the [address] ABDOMEN PELVIS W STAT 08/25/2017 11:58 Results for this CONTRAST PM CDT procedure are in the results section. LACTIC ACID LEVEL, Timed 08/25/2017 10:33 Results for this SEPSIS - NOW AND PM CDT procedure are in REPEAT 2X EVERY 3 the results HOURS section. HCG QUALITATIVE, URINE Routine 08/25/2017 10:30 Results for this SCREEN PM CDT procedure are in the results section. ZZESTIMATED GFR STAT 08/25/2017 8:18 Results for this PM CDT procedure are in the results section. URINALYSIS SCREEN AND STAT 08/25/2017 8:18 Results for this MICROSCOPY, WITH PM CDT procedure are in REFLEX TO CULTURE the results section. LIPASE LEVEL STAT 08/25/2017 8:18 Results for this PM CDT procedure are in the results section. LACTIC ACID LEVEL, STAT 08/25/2017 8:18 Results for this SEPSIS - NOW AND PM CDT procedure are in REPEAT 2X EVERY 3 the results HOURS section. COMPREHENSIVE STAT 08/25/2017 8:18 Results for this METABOLIC PANEL PM CDT procedure are in the results section. HC COMPLETE BLD COUNT STAT 08/25/2017 8:18 Results for this W/AUTO DIFF PM CDT procedure are in the results section. URINE CULTURE STAT 08/25/2017 8:18 Results for this PM CDT procedure are in the results section. after 04/16/2017 Results MRI Pelvis W Wo Contrast (10/24/2017 1:38 PM CDT)Only the most recent of2 resultswithin the time period is included. Narrative Performed At EXAMINATION:MRI PELVIS W WO CONTRAST [facility] CLINICAL HISTORY:R93.3 Abnormal findings on diagnostic imaging of other parts of digestive tract TECHNIQUE: Multiplanar multisequence MR images of the abdomen were obtained pre- and post dynamic intravenous administration of gadolinium according to enterography protocol. Multiple sequences are degraded by motion artifact. COMPARISON:MRI abdomen August 26, 2017. CT abdomen and pelvis August 25, 2017. FINDINGS: No abnormality of the stomach or small bowel. Patient is status-post appendectomy. Apparent diffuse wall thickening and enhancement of the colon may be in part related to underdistention however low-grade colitis is not excluded. Liver, spleen, pancreas, adrenals, and kidneys are normal. Pancreaticobiliary system is nondistended status post cholecystectomy. Aorta is nonaneurysmal and mildly atherosclerotic. Superior mesenteric artery and portal venous system are patent. No adenopathy, fluid, or fluid collection. Patient is status-post hysterectomy. Urinary bladder is unremarkable. Heart is normal in size. Lung bases are clear. No pericardial or pleural effusion. Bone marrow signal is normal. Previously seen focus of myofascial enhancement in the left gluteus maximum muscle has resolved. IMPRESSION: 1. Apparent diffuse wall thickening and enhancement of the colon may be spurious and related to underdistention. Low-grade infectious or inflammatory colitis is not excluded. 2. No abnormality of the stomach or small bowel. 3. Cholecystectomy, appendectomy, and hysterectomy. Thank you for allowing us to participate in the care of your patient. [facility]-[id number] Procedure Note Hm Interface, Radiology Results Incoming - 10/24/2017 2:05 PM CDT EXAMINATION: MRI PELVIS W WO CONTRAST CLINICAL HISTORY: R93.3 Abnormal findings on diagnostic imaging of other parts of digestive tract TECHNIQUE: Multiplanar multisequence MR images of the abdomen were obtained pre - and post dynamic intravenous administration of gadolinium according to enterography protocol. Multiple sequences are degraded by motion artifact. COMPARISON: MRI abdomen August 26, 2017. CT abdomen and pelvis August 25, 2017. FINDINGS: No abnormality of the stomach or small bowel. Patient is status-post appendectomy. Apparent diffuse wall thickening and enhancement of the colon may be in part related to underdistention however low-grade colitis is not excluded. Liver, spleen, pancreas, adrenals, and kidneys are normal. Pancreaticobiliary system is nondistended status post cholecystectomy. Aorta is nonaneurysmal and mildly atherosclerotic. Superior mesenteric artery and portal venous system are patent. No adenopathy, fluid, or fluid collection. Patient is status-post hysterectomy. Urinary bladder is unremarkable. Heart is normal in size. Lung bases are clear. No pericardial or pleural effusion. Bone marrow signal is normal. Previously seen focus of myofascial enhancement in the left gluteus maximum muscle has resolved. IMPRESSION: 1. Apparent diffuse wall thickening and enhancement of the colon may be spurious and related to underdistention. Low-grade infectious or inflammatory colitis is not excluded. 2. No abnormality of the stomach or small bowel. 3. Cholecystectomy, appendectomy, and hysterectomy. Thank you for allowing us to participate in the care of your patient. [facility]-[id number] Performing Organization Address City/State/Zipcode Phone Number [facility] [address] [place] [address] MRI Abdomen W Wo Contrast (10/24/2017 1:37 PM CDT)Only the most recent of2 resultswithin the time period is included. Narrative Performed At EXAMINATION:MRI ABDOMEN W WO CONTRAST [facility] CLINICAL HISTORY:R93.3 Abnormal findings on diagnostic imaging of other parts of digestive tract TECHNIQUE: Multiplanar multisequence MR images of the abdomen were obtained pre - and post dynamic intravenous administration of gadolinium according to enterography protocol. Multiple sequences are degraded by motion artifact. COMPARISON:MRI abdomen August 26, 2017. CT abdomen and pelvis August 25, 2017. FINDINGS: No abnormality of the stomach or small bowel. Patient is status-post appendectomy. Apparent diffuse wall thickening and enhancement of the colon may be in part related to underdistention however low-grade colitis is not excluded. Liver, spleen, pancreas, adrenals, and kidneys are normal. Pancreaticobiliary system is nondistended status post cholecystectomy. Aorta is nonaneurysmal and mildly atherosclerotic. Superior mesenteric artery and portal venous system are patent. No adenopathy, fluid, or fluid collection. Patient is status-post hysterectomy. Urinary bladder is unremarkable. Heart is normal in size. Lung bases are clear. No pericardial or pleural effusion. Bone marrow signal is normal. Previously seen focus of myofascial enhancement in the left gluteus maximum muscle has resolved. IMPRESSION: 1. Apparent diffuse wall thickening and enhancement of the colon may be spurious and related to underdistention. Low-grade infectious or inflammatory colitis is not excluded. 2. No abnormality of the stomach or small bowel. 3. Cholecystectomy, appendectomy, and hysterectomy. Thank you for allowing us to participate in the care of your patient. [facility]-[id number] Procedure Note Interface, Radiology Results Incoming - 10/24/2017 2:05 PM CDT EXAMINATION: MRI ABDOMEN W WO CONTRAST CLINICAL HISTORY: R93.3 Abnormal findings on diagnostic imaging of other parts of digestive tract TECHNIQUE: Multiplanar multisequence MR images of the abdomen were obtained pre - and post dynamic intravenous administration of gadolinium according to enterography protocol. Multiple sequences are degraded by motion artifact. COMPARISON: MRI abdomen August 26, 2017. CT abdomen and pelvis August 25, 2017. FINDINGS: No abnormality of the stomach or small bowel. Patient is status-post appendectomy. Apparent diffuse wall thickening and enhancement of the colon may be in part related to underdistention however low-grade colitis is not excluded. Liver, spleen, pancreas, adrenals, and kidneys are normal. Pancreaticobiliary system is nondistended status post cholecystectomy. Aorta is nonaneurysmal and mildly atherosclerotic. Superior mesenteric artery and portal venous system are patent. No adenopathy, fluid, or fluid collection. Patient is status-post hysterectomy. Urinary bladder is unremarkable. Heart is normal in size. Lung bases are clear. No pericardial or pleural effusion. Bone marrow signal is normal. Previously seen focus of myofascial enhancement in the left gluteus maximum muscle has resolved. IMPRESSION: 1. Apparent diffuse wall thickening and enhancement of the colon may be spurious and related to underdistention. Low-grade infectious or inflammatory colitis is not excluded. 2. No abnormality of the stomach or small bowel. 3. Cholecystectomy, appendectomy, and hysterectomy. Thank you for allowing us to participate in the care of your patient. [id number] Performing Organization Address City/State/Zipcode Phone Number [facility] [address] [place] [address] Estimated GFR (08/27/2017 4:58 AM CDT)Only the most recent of3 resultswithin the time period is included. GFR Non Af Amer 69 mL/min/1.73 m2 [facility] DEPARTMENT OF PATHOLOGY AND GENOMIC MEDICINE GFR Af Amer 84 mL/min/1.73 m2 [facility] DEPARTMENT OF Comment: PATHOLOGY AND GENOMIC Chronic kidney disease: <60 mL/min/1.73m2 MEDICINE Kidney failure: <15 mL/min/1.73m2 The estimated GFR is calculated from the IDMS-traceable Modification of Diet in Renal Disease Equation. The accuracy of the calculation is poor when the creatinine is normal. Calculated values >90 mL/min/1.73m2 are not reported. This equation has not been validated in children (<18 years), women, the elderly (>70 years), or ethnic groups other than Caucasians and Americans. Specimen Plasma specimen Performing Organization Address City/State/Zipcode Phone Number [facility] DEPARTMENT OF PATHOLOGY AND [address] [place] [address] [facility] CBC with platelet and differential (08/27/2017 4:58 AM CDT)Only the most recent of3 resultswithin the time period is included. WBC 3.11 (L) 4.50 - 11.00 k/uL [facility] DEPARTMENT OF PATHOLOGY AND GENOMIC MEDICINE RBC 3.77 (L) 4.20 - 5.50 m/uL [facility] DEPARTMENT OF PATHOLOGY AND GENOMIC MEDICINE HGB 11.6 (L) 12.0 - 16.0 g/dL [facility] DEPARTMENT OF PATHOLOGY AND GENOMIC MEDICINE HCT 33.9 (L) 37.0 - 47.0 % [facility] DEPARTMENT OF PATHOLOGY AND GENOMIC MEDICINE MCV 89.9 82.0 - 100.0 fL [facility] DEPARTMENT OF PATHOLOGY AND GENOMIC MEDICINE MCH 30.8 27.0 - 34.0 pg [facility] DEPARTMENT OF PATHOLOGY AND GENOMIC MEDICINE MCHC 34.2 31.0 - 37.0 g/dL [facility] DEPARTMENT OF PATHOLOGY AND GENOMIC MEDICINE RDW - SD 40.7 37.0 - 55.0 fL [facility] DEPARTMENT OF PATHOLOGY AND GENOMIC MEDICINE MPV 12.7 8.8 - 13.2 fL [facility] DEPARTMENT OF PATHOLOGY AND GENOMIC MEDICINE Platelet count 176 150 - 400 k/uL [facility] DEPARTMENT OF PATHOLOGY AND GENOMIC MEDICINE Nucleated RBC 0.00 /100 WBC [facility] DEPARTMENT OF PATHOLOGY AND GENOMIC MEDICINE Neutrophils 40.7 39.0 - 69.0 % [facility] DEPARTMENT OF PATHOLOGY AND GENOMIC MEDICINE Lymphocytes 46.9 (H) 25.0 - 45.0 % [facility] DEPARTMENT OF PATHOLOGY AND GENOMIC MEDICINE Monocytes 8.0 0.0 - 10.0 % [facility] DEPARTMENT OF PATHOLOGY AND GENOMIC MEDICINE Eosinophils 3.5 0.0 - 5.0 % [facility] DEPARTMENT OF PATHOLOGY AND GENOMIC MEDICINE Basophils 0.6 0.0 - 1.0 % [facility] DEPARTMENT OF PATHOLOGY AND GENOMIC MEDICINE Immature granulocytes 0.3Comment: 0.0 - 1.0 % [facility] DEPARTMENT OF "Immature PATHOLOGY AND GENOMIC granulocytes" MEDICINE (promyelocytes, myelocytes, metamyelocytes) Specimen Blood Performing Organization Address City/State/Zipcode Phone Number [facility] DEPARTMENT OF PATHOLOGY AND [address] [place] [address] [employer] MEDICINE Basic metabolic panel (08/27/2017 4:58 AM CDT) Sodium 142 135 - 148 mEq/L [facility] DEPARTMENT OF PATHOLOGY AND GENOMIC MEDICINE Potassium 3.6 3.5 - 5.0 mEq/L [facility] DEPARTMENT OF PATHOLOGY AND GENOMIC MEDICINE Chloride 105 98 - 112 mEq/L [facility] DEPARTMENT OF PATHOLOGY AND GENOMIC MEDICINE CO2 26 24 - 31 mEq/L [facility] DEPARTMENT OF PATHOLOGY AND GENOMIC MEDICINE Anion gap 11@ANIO 7 - 15 mEq/L [facility] DEPARTMENT OF PATHOLOGY AND GENOMIC MEDICINE BUN 5 (L) 6 - 20 mg/dL [facility] DEPARTMENT OF PATHOLOGY AND GENOMIC MEDICINE Creatinine 0.9 0.5 - 0.9 mg/dL [facility] DEPARTMENT OF PATHOLOGY AND GENOMIC MEDICINE Glucose 91 65 - 99 mg/dL [facility] DEPARTMENT OF PATHOLOGY AND GENOMIC MEDICINE Calcium 9.3 8.3 - 10.2 mg/dL [facility] DEPARTMENT OF PATHOLOGY AND GENOMIC MEDICINE Specimen Plasma specimen Performing Organization Address City/[facility] Phone Number [facility] DEPARTMENT OF PATHOLOGY AND [address] [place] [phone] [facility] Urine drugs of abuse screen (08/26/2017 4:06 PM CDT) Amphetamine screen, urine Negative [facility] DEPARTMENT OF PATHOLOGY AND GENOMIC MEDICINE Barbiturate screen, urine Negative [facility] DEPARTMENT OF PATHOLOGY AND GENOMIC MEDICINE Benzodiazepine screen, Negative [facility] DEPARTMENT OF urine PATHOLOGY AND GENOMIC MEDICINE Cannabinoid screen, urine Negative [facility] DEPARTMENT OF PATHOLOGY AND GENOMIC MEDICINE Cocaine screen, urine Negative [facility] DEPARTMENT OF PATHOLOGY AND GENOMIC MEDICINE Methadone metabolite Negative [facility] DEPARTMENT OF (EDDP), urine PATHOLOGY AND GENOMIC MEDICINE Opiates screen, urine Negative [facility] DEPARTMENT OF PATHOLOGY AND GENOMIC MEDICINE Oxycodone screen, urine Negative [facility] DEPARTMENT OF PATHOLOGY AND GENOMIC MEDICINE Phencyclidine screen, urine Negative [facility] DEPARTMENT OF PATHOLOGY AND GENOMIC MEDICINE Tricyclic screen, urine Negative [facility] DEPARTMENT OF Comment: PATHOLOGY AND GENOMIC Drug screen minimum concentration of detectability MEDICINE [id number] ng/mL Barbiturates 200 ng/mL Qzrphvuvvlgxqgx232 ng/mL Wvyrxhq806 ng/mL Ounsqgble686 ng/mL Oumftmt744 ng/mL Krmrawnwi040 ng/mL Phencyclidine 25 ng/mL Jeaasemhamnh52 ng/mL Mgkeupkjus8470 ng/mL Negative test results indicates presumptive evidence of lack of clinically significant drug concentration in this urine specimen. Positive test results are presumptive evidence of clinically significant drug concentration in this urine specimen. Testing performed for medical purposes only. Specimen Urine Performing Organization Address City/[facility] Phone Number [facility] DEPARTMENT OF PATHOLOGY AND [address] [place] [phone] [facility] MEDICINE Sedimentation rate (08/26/2017 2:55 PM CDT) Sedimentation rate 16 0 - 20 mm/hr [facility] DEPARTMENT OF PATHOLOGY AND GENOMIC MEDICINE Specimen Blood Performing Organization Address City/[facility] Phone Number [facility] DEPARTMENT OF PATHOLOGY AND [address] [place] [phone] [facility] MED[facility] C-reactive protein (08/26/2017 2:55 PM CDT) CRP 0.46 0.00 - 0.50 mg/dL [facility] DEPARTMENT OF PATHOLOGY AND GENOMIC MEDICINE Specimen Plasma specimen Performing Organization Address City/[facility] Phone Number [facility] DEPARTMENT OF PATHOLOGY AND [address] [place] [phone] [facility] MED[facility] ECG 12 lead (08/26/2017 7:50 AM CDT) Ventricular rate 63 [facility] MUSE Atrial rate 63 [facility] MUSE AR interval 128 [facility] MUSE QRSD interval 86 [facility] MUSE QT interval 428 [facility] MUSE QTC interval 437 [facility] MUSE P axis 1 39 [facility] MUSE QRS axis 1 6 [facility] MUSE T wave axis 29 [facility] MUSE EKG impression Normal sinus rhythm-Normal ECG-No previous [facility] MUSE ECGs available- Performing Organization Address [facility] Phone Number [facility] MUSE [address] [place] [phone] Lactic acid level, SEPSIS - Now and repeat 2x every 3 hours (08/26/2017 5:15 AM CDT)Only the most recent of3 resultswithin the time period is included. Lactic acid 1.4 0.5 - 2.2 mmol/L [facility] DEPARTMENT OF PATHOLOGY AND GENOMIC MEDICINE Specimen Blood Performing Organization Address [facility] Phone Number [facility] DEPARTMENT OF PATHOLOGY AND [address] [place] [phone] [facility] MEDICINE Comprehensive metabolic panel (08/26/2017 5:15 AM CDT)Only the most recent of2 resultswithin the time period is included. Sodium 141 135 - 148 mEq/L [facility] DEPARTMENT OF PATHOLOGY AND GENOMIC MEDICINE Potassium 3.7 3.5 - 5.0 mEq/L [facility] DEPARTMENT OF PATHOLOGY AND GENOMIC MEDICINE Chloride 106 98 - 112 mEq/L [facility] DEPARTMENT OF PATHOLOGY AND GENOMIC MEDICINE CO2 25 24 - 31 mEq/L [facility] DEPARTMENT OF PATHOLOGY AND GENOMIC MEDICINE Anion gap 10@ANIO 7 - 15 mEq/L [facility] DEPARTMENT OF PATHOLOGY AND GENOMIC MEDICINE BUN 6 6 - 20 mg/dL [facility] DEPARTMENT OF PATHOLOGY AND GENOMIC MEDICINE Creatinine 0.8 0.5 - 0.9 mg/dL [facility] DEPARTMENT OF PATHOLOGY AND GENOMIC MEDICINE Glucose 86 65 - 99 mg/dL [facility] DEPARTMENT OF PATHOLOGY AND GENOMIC MEDICINE Calcium 8.4 8.3 - 10.2 mg/dL [facility] DEPARTMENT OF PATHOLOGY AND GENOMIC MEDICINE Protein 5.8 (L) 6.3 - 8.3 g/dL [facility] DEPARTMENT OF Comment: PATHOLOGY AND GENOMIC [place] 4.6-7.0 g/dL MEDICINE 1 week 4.4-7.6 g/dL 7 months-1year5.1-7.3 g/dL 1-2 years5.6-7.5 g/dL >3 years6.0-8.0 g/dL 18-150 6.3-8.3 g/dL Albumin 2.9 (L) 3.5 - 5.0 g/dL [facility] DEPARTMENT OF PATHOLOGY AND GENOMIC MEDICINE A/G ratio 1.0 0.7 - 3.8 [facility] DEPARTMENT OF PATHOLOGY AND GENOMIC MEDICINE Alkaline phosphatase 64 35 - 104 U/L [facility] DEPARTMENT OF PATHOLOGY AND GENOMIC MEDICINE AST 29 10 - 35 U/L [facility] DEPARTMENT OF PATHOLOGY AND GENOMIC MEDICINE ALT 13 5 - 50 U/L [facility] DEPARTMENT OF PATHOLOGY AND GENOMIC MEDICINE Total bilirubin <0.2 0.0 - 1.2 mg/dL [facility] DEPARTMENT OF PATHOLOGY AND GENOMIC MEDICINE Specimen Plasma specimen Performing Organization Address City/State/Zipcode Phone Number [facility] DEPARTMENT OF PATHOLOGY AND [address] [place] [address] [facility] CT Abdomen Pelvis W Contrast (08/25/2017 11:58 PM CDT) Narrative Performed At Examination:CT ABDOMEN PELVIS W CONTRAST RADIANT Clinical History: Nauseavomiting Comparison: None. Findings: CT scans are performed using radiation dose reduction techniques.Technical factors are evaluated and adjusted to ensure appropriate moderation of exposure.Automated dose management technology is applied to adjust radiation exposure while achieving a diagnostic quality image. CT scan of the abdomen and pelvis was performed after intravenous contrast. The liver, spleen, pancreas, and adrenal glands are unremarkable. The patient is status post cholecystectomy. The kidneys are within normal limits without hydronephrosis. The appendix is not visualized. It may have been surgically removed. No bowel thickening or fat stranding is seen. No bowel dilatation is seen. No free air or fluid is seen. Urinary bladder is not well-distended and not well evaluated. The visualized lung bases are clear. IMPRESSION: 1. No acute abnormality identified in the abdomen or pelvis. [facility]-[id number] Procedure Note [facility], Radiology Results Incoming - 08/26/2017 12:26 AM CDT Examination: CT ABDOMEN PELVIS W CONTRAST Clinical History: Nausea vomiting Comparison: None. Findings: CT scans are performed using radiation dose reduction techniques. Technical factors are evaluated and adjusted to ensure appropriate moderation of exposure. Automated dose management technology is applied to adjust radiation exposure while achieving a diagnostic quality image. CT scan of the abdomen and pelvis was performed after intravenous contrast. The liver, spleen, pancreas, and adrenal glands are unremarkable. The patient is status post cholecystectomy. The kidneys are within normal limits without hydronephrosis. The appendix is not visualized. It may have been surgically removed. No bowel thickening or fat stranding is seen. No bowel dilatation is seen. No free air or fluid is seen. Urinary bladder is not well-distended and not well evaluated. The visualized lung bases are clear. IMPRESSION: 1. No acute abnormality identified in the abdomen or pelvis. [facility]-[id number] Performing Organization Address City/[facility] Phone Number [facility] [address] [place] [phone] hCG qualitative, urine screen (08/25/2017 10:30 PM CDT) [facility] [place] qualitative, urine NegativeComment: [facility] DEPARTMENT OF Sensitivity of HCG test: 25 PATHOLOGY AND GENOMIC mIU/mL MEDICINE Specimen Urine Performing Organization Address [facility] Phone Number [facility] DEPARTMENT OF PATHOLOGY AND [address] [place] [phone] [facility] MEDICINE Urinalysis screen and microscopy, with reflex to culture (08/25/2017 8:18 PM CDT) Specimen site Clean catch [facility] DEPARTMENT OF PATHOLOGY AND GENOMIC MEDICINE Color, UA Straw [facility] DEPARTMENT OF PATHOLOGY AND GENOMIC MEDICINE Appearance, UA Clear [facility] DEPARTMENT OF PATHOLOGY AND GENOMIC MEDICINE Specific gravity, UA 1.005 1.001 - 1.035 [facility] DEPARTMENT OF PATHOLOGY AND GENOMIC MEDICINE pH, UA 6.0 5.0 - 8.5 [facility] DEPARTMENT OF PATHOLOGY AND GENOMIC MEDICINE Protein, UA Negative Negative [facility] DEPARTMENT OF PATHOLOGY AND GENOMIC MEDICINE Glucose, UA Negative Negative [facility] DEPARTMENT OF PATHOLOGY AND GENOMIC MEDICINE Ketones, UA Negative Negative [facility] DEPARTMENT OF PATHOLOGY AND GENOMIC MEDICINE Bilirubin, UA Negative Negative [facility] DEPARTMENT OF PATHOLOGY AND GENOMIC MEDICINE Blood, UA Negative Negative [facility] DEPARTMENT OF PATHOLOGY AND GENOMIC MEDICINE Nitrite, UA Negative Negative [facility] DEPARTMENT OF PATHOLOGY AND GENOMIC MEDICINE Urobilinogen, UA <2.0 <2.0 [facility] DEPARTMENT OF PATHOLOGY AND GENOMIC MEDICINE Leukocyte esterase, UA Negative Negative [facility] DEPARTMENT OF PATHOLOGY AND GENOMIC MEDICINE Epithelial cells, UA <1 /HPF [facility] DEPARTMENT OF PATHOLOGY AND GENOMIC MEDICINE WBC, UA <1 0 - 4 /HPF [facility] DEPARTMENT OF PATHOLOGY AND GENOMIC MEDICINE RBC, UA <1 0 - 5 /HPF [facility] DEPARTMENT OF PATHOLOGY AND GENOMIC MEDICINE Bacteria, UA Few None seen [facility] DEPARTMENT OF PATHOLOGY AND GENOMIC MEDICINE Yeast, UA None seen [facility] DEPARTMENT OF PATHOLOGY AND GENOMIC MEDICINE Yeast with pseudohyphae, UA None seen [facility] DEPARTMENT OF PATHOLOGY AND GENOMIC MEDICINE Specimen Urine Performing Organization Address City/[facility] Phone Number [facility] DEPARTMENT OF PATHOLOGY AND [address] [place] [address] GENOMIC MEDICINE Urine culture (08/25/2017 8:18 PM CDT) Urine culture SEE COMMENTComment: Bacteriuria [facility] DEPARTMENT OF PATHOLOGY screen negative. AND GENOMIC MEDICINE Performing Organization Address City/[facility] Phone Number [facility] DEPARTMENT OF PATHOLOGY AND [address] [place] [address] GENOMIC MEDICINE Lipase level (08/25/2017 8:18 PM CDT) Lipase 19 13 - 60 U/L [facility] DEPARTMENT OF PATHOLOGY AND GENOMIC MEDICINE Specimen Plasma specimen Performing Organization Address [facility] Phone Number [facility] DEPARTMENT OF PATHOLOGY AND [address] [place] [address] GENOMIC MEDICINE after 04/16/2017 Insurance Payer Benefit Plan / Group Subscriber ID Type Phone Address [employer]ET[employer] AETNA PPO OPEN CHOICE xxxxxxxxxx PPO [employer]/AETNA SIG ADMIN xxxxxxxxx [facility] [place] [phone] (Work) Advance Directives Patient has advance care planning documents on file. For more information, please contact:Jorje Akhtar[address] [place] [phone]
--- OUTSIDE RECORDS SUMMARY | 2018-04-17 17:48 | XMS REPORT | Continuity of Care Document ---
:1975 Author Organization Interface Problems Problem Status Onset Classification Date Comments Source Date Reported Anxiety Active 11/26/19 Finding 06/08/[address] [facility] [place] Bradycardia Active 11/26/19 Finding 06/08/[address] [facility] [place] Chest pain Active 11/26/19 Finding 06/08/[address] [facility] [place] Hypertension Active 11/26/19 Finding 06/08/[address] [facility] [place] Medications Medication Details Route Status Patient Ordering Order Source Instructions Provider Date Dexlansoprazole DAILY Active [facility] [place] Hydrochlorothiazide DAILY [facility] [place] Azathioprine DAILY [facility] [place] Linaclotide DAILY Active [facility] [place] Meloxicam DAILY Active [facility] NEEDED 2018 [facility] PRN For [place] Pain Vortioxetine DAILY Active [facility] Hydrobromide 2018 [facility] [place] Metoprolol Tartrate DAILY AT Active [facility] [place] Metoprolol Tartrate TWICE Active Desir [facility]600 AND [place] 1800 Allergies, Adverse Reactions, Alerts Substance Category Reaction Severity Reaction Status Date Comments Source type Reported bromphenirami Rash Allergy to [facility] maleate Sub[facility] [place] dexbromphenir Rash Allergy to [facility] amine maleate Substance [facility] [place] hydrocodone Nausea/Vo Allergy to [facility] Substance [facility] [place] morphine Nausea/Vo Allergy [facility] Substance [facility] [place] pseudoephedri Rash Allergy to [facility] HCl Substance 8 [facility] [place] pseudoephedri Rash Allergy to [facility] sulfate Substance 8 [facility] [place] drixoral Unknown Allergy to [facility] Substance [facility] [place] Hydrocodone-A Unknown Allergy to Active [facility] ceta Substance 8 [facility] [place] Immunizations Immunization Date Given Site Status Last Updated Comments Source Results Order Name Results Value Reference Date Interpretation Comments Source Range Laboratory White Blood 5.6 4.3 - 10.9 St. Studies Count K/uL 2018 [facility] [place] Laboratory Red Cell 13.2 % 12.1 - 15.2 St. Studies Distribution 2018 [facility] Width [place] Laboratory Red Blood 4.71 3.86 - 4.86 St. Studies Count M/uL 2018 [facility] [place] Laboratory Platelet Count 254 152 - 406 St. Studies K/uL 2018 [facility] [place] Laboratory Neutrophils % 57.2 % 41.7 - 73.7 [facility] Studies 2018 [facility] [place] [facility] Monocytes % 6.4 % 3.3 - 12.3 St[facility] Studies 2018 [facility] [place] [facility] Mean Platelet 10.6 fL 7.6 - 11.3 St. Studies Volume 2018 [facility] [place] Laboratory Mean 89.0 fL 80 - 100 St. Studies Corpuscular 2018 [facility] - Volume [place] Laboratory Mean 34.1 32.0 - 36.0 St. Studies Corpuscular g/dL 2018 [facility] - Hemoglobin [place] [facility] Mean 30.4 pg 27.0 - 35.0 St. Studies Corpuscular 2018 [facility] Hemoglobin [place] Laboratory Lymphocytes % 33.7 % 15.3 - 44.8 St[facility] Studies 2018 [facility] [place] [facility] Hemoglobin 14.3 12.0 - 15.0 St. Studies g/dL 2018 [facility] [place] [facility] Hematocrit 41.9 % 36.0 - 45.0 [facility] Studies 2018 [facility] [place] [facility] Eosinophils % 2.0 % 0 - 4.4 [facility] Studies 2018 [facility] [place] [facility] Basophils % 0.7 % 0 - 1.3 St[facility] Studies 2018 [facility] [place] Laboratory Absolute 3.2 1.8 - 8.0 St. Studies Neutrophil K/uL 2017 [facility] [place] Laboratory Absolute 0.4 0.1 - 1.3 St. Studies Monocytes K/uL 2017 [facility] (CBC) [place] Laboratory Absolute 1.9 0.7 - 4.9 St. Studies Lymphocytes K/uL 2017 [facility] (CBC) [place] Laboratory Absolute 0.1 0 - 0.5 St. Studies Eosinophils K/uL 2017 [facility] - (CBC) [place] Laboratory Absolute 0.0 0 - 0.[address] [facility] [address] Studies Basophils K/uL 2017 [facility] (CBC) [place] Vital Signs Vital Sign Value Date Comments Source Temperature Oral (F) 97.3 F 06/08/[address] [facility] [address] [facility] [place] Heart Rate 72 06/08/[address] [facility] [address] [facility] [place] Respitory Rate 18 06/08/[address] [facility] [address] [facility] [place] Systolic (mm Hg) 120 06/08/[address] [facility] [address] [facility] [place] Diastolic (mm Hg) 75 06/08/[address] [facility] [address] [facility] [place] Height 64 06/06/[address] [facility] [address] [facility] [place] Weight 165.00 06/06/[address] [facility] [address] [facility] [place] Encounters Location Location Encounter Encounter Reason Attending ADM DC Status Source Details Type Number For Provider Date Date Visit [facility] Departed [id number] 06/08 06/[address] [facility] [place] [facility] [place] [facility] [id number] FAISAL 10 Active [facility] Outpatient [id number] FAISAL 01/03 Active [facility] Outpatient [id number] FAISAL 02/03 Active [facility] Procedures Procedure Code Date Perfomer Comments Source DIAGNOSTIC [id number] 06/08/[address] [facility].. [place]
--- OUTSIDE RECORDS SUMMARY | 2018-04-17 17:48 | XMS REPORT | Clinical Summary ---
:1975 Author Organization [facility] Address [address] [place] [address] Care Team Providers Name Role Phone Suepalak Marcio Ricco Primary Care Provider Allergies Active Allergy Reactions Severity Noted Date Comments Brompheniramine-Pseudoephedrin Rash Low 12/06/2017 Hydrocodone Nausea And Vomiting High 10/22/2016 Morphine Nausea And Vomiting High 10/22/2016 Rifampin Nausea And Vomiting 08/25/2017 Medications Medication Sig Dispensed Refills Start Date End Date Status estradiol (ESTRACE) 1 Take 1 mg by 0 Active MG tablet mouth daily. dexlansoprazole 60 mg Take 60 mg by 0 Active capsule mouth daily. ranitidine (ZANTAC) Take 150 mg by 0 Active 150 MG tablet mouth 2 (two) times daily. metoprolol Take 25 mg by 0 Active (TOPROL-XL) 25 MG 24 mouth daily. hr tablet QUEtiapine (SEROQUEL) Take 25 mg by 0 Active 25 MG tablet mouth nightly. lubiprostone Take 8 mcg by 0 Active (AMITIZA) 8 MCG mouth 2 (two) capsule times daily with breakfast and dinner. busPIRone (BUSPAR) Take 7.5 mg by 0 Active 7.5 MG tablet mouth 2 (two) times daily . sodium chloride 0.65% 2 sprays per 0 03/24/2018 Active (OCEAN) 0.65 % nasal nostril 2-3 spray times a day and as needed. Is over the counter. plecanatide Take 3 mg by 0 Discontinued (TRULANCE) 3 mg Tab mouth daily. 9 metoclopramide HCl Take 10 mg by 0 Discontinued (REGLAN) 10 MG tablet mouth 3 9 (three) times daily. glycopyrrolate Take 1 mg by 0 Discontinued (ROBINUL) 1 mg tablet mouth 2 (two) 9 times daily . Active Problems Problem Noted Date Mild protein malnutrition 03/24/2018 Intractable vomiting 03/18/2018 Gastroparesis 03/16/2018 Hypertension 03/16/2018 Depression 03/16/2018 Encounters Date Type Specialty Care Team Description 03/17/2018 Anesthesia Event Gastroenterology Janette Pan MD 03/17/2018 Surgery Gastroenterology Domingo Mcduffie MD ENDOSCOPY,BIOPSY 03/17/2018 Travel 03/16/2018 [facility] General Internal Rashaun Balbuena Hypertension, unspecified type; - Encounter Medicine MD Vijaya Acute nonintractable headache, unspecified headache type; 03/24/2018 Intractable vomiting with nausea, unspecified vomiting type 03/16/2018 Orders Only Internal Medicine Rashaun Balbuena MD 03/08/2018 Emergency Emergency Medicine Leon, Nausea and vomiting, intractability of vomiting not specified, unspecified vomiting type (Primary Dx) ; Kaiser Rosa MD Gastroparesis 03/08/2018 Travel 02/09/2018 Anesthesia Event Gastroenterology Naeem Aparicio MD 02/09/2018 Surgery GastroenterDomingo Ordonez MD 02/09/2018 [facility] GastroenterDomingo Ordonez MD 01/16/2018 Hospital Pre-Admission Testing Resource, [facility] hospital Encounter Preadmit Phone 12/22/2017 Surgery Gastroenterology Aria, MOTILITY Clarence Copeland MD 12/22/2017 [facility] Gastroenterology Domingo Mcduffie MD after 04/16/2017 Social History Tobacco Use Types Packs/Day Years Used Date Former Smoker Quit: 01/16/2013 Smokeless Tobacco: Never Used Alcohol Use Drinks/Week oz/Week Comments No Alcohol Habits Answer Date Recorded How often do you have a drink containing alcohol? Never 01/16/2018 How many drinks containing alcohol do you have on a typical Not asked day when you are drinking? How often do you have six or more drinks on one occasion? Not asked Sex Assigned at Date Recorded Not on file Job Start Date Occupation Industry Not on file Not on file Not on file Travel History Travel Start Travel End No recent travel history available. Last Filed Vital Signs Vital Sign Reading Time Taken Blood Pressure 113/70 03/24/2018 7:25 AM MENTAL TELEPATHIST Pulse 75 03/24/2018 12:42 PM MENTAL TELEPATHIST Temperature 36.1 C (97 F) 03/24/2018 7:25 AM MENTAL TELEPATHIST Respiratory Rate 18 03/24/2018 12:42 PM MENTAL TELEPATHIST Oxygen Saturation 97% 03/24/2018 12:42 PM MENTAL TELEPATHIST Inhaled Oxygen Concentration 21% 03/22/2018 2:10 AM MENTAL TELEPATHIST Weight 63.2 kg (139 lb 4.8 oz) 03/24/2018 6:00 AM MENTAL TELEPATHIST Height 160 cm (5' 3") 03/16/2018 3:32 PM MENTAL TELEPATHIST Body Mass Index 24.68 03/24/2018 6:00 AM MENTAL TELEPATHIST Plan of Treatment Not on file Procedures Procedure Name Priority Date/Time Associated Comments Diagnosis TRIGLYCERIDES STAT 03/24/2018 11:04 Results for this AM MENTAL TELEPATHIST procedure are in the results section. PHOSPHORUS STAT 03/24/2018 11:04 Results for this AM MENTAL TELEPATHIST procedure are in the results section. MAGNESIUM STAT 03/24/2018 11:04 Results for this AM MENTAL TELEPATHIST procedure are in the results section. BASIC METABOLIC PANEL STAT 03/24/2018 11:04 Results for this (7) AM MENTAL TELEPATHIST procedure are in the results section. TRIGLYCERIDES Routine 03/23/2018 4:39 Results for this PM MENTAL TELEPATHIST procedure are in the results section. XR CHEST 1 VIEW STAT 03/23/2018 12:49 Results for this PORTABLE/BEDSIDE PM MENTAL TELEPATHIST procedure are in the results section. CBC W/PLT COUNT & Routine 03/23/2018 6:34 Results for this AUTO DIFFERENTIAL AM MENTAL TELEPATHIST procedure are in the results section. PHOSPHORUS Routine 03/23/2018 6:34 Results for this AM MENTAL TELEPATHIST procedure are in the results section. MAGNESIUM Routine 03/23/2018 6:34 Results for this AM MENTAL TELEPATHIST procedure are in the results section. BASIC METABOLIC PANEL Routine 03/23/2018 6:34 Results for this (7) AM MENTAL TELEPATHIST procedure are in the results section. CBC W/PLT COUNT & Routine 03/23/2018 6:34 Results for this AUTO DIFFERENTIAL AM MENTAL TELEPATHIST procedure are in the results section. CBC W/PLT COUNT & Routine 03/22/2018 5:06 Results for this AUTO DIFFERENTIAL AM MENTAL TELEPATHIST procedure are in the results section. PHOSPHORUS Routine 03/22/2018 5:06 Results for this AM MENTAL TELEPATHIST procedure are in the results section. MAGNESIUM Routine 03/22/2018 5:06 Results for this AM MENTAL TELEPATHIST procedure are in the results section. BASIC METABOLIC PANEL Routine 03/22/2018 5:06 Results for this (7) AM MENTAL TELEPATHIST procedure are in the results section. CBC W/PLT COUNT & Routine 03/22/2018 5:06 Results for this AUTO DIFFERENTIAL AM MENTAL TELEPATHIST procedure are in the results section. CBC W/PLT COUNT & Routine 03/21/2018 5:35 Results for this AUTO DIFFERENTIAL AM MENTAL TELEPATHIST procedure are in the results section. CBC W/PLT COUNT & Routine 03/21/2018 5:35 Results for this AUTO DIFFERENTIAL AM MENTAL TELEPATHIST procedure are in the results section. PHOSPHORUS Routine 03/21/2018 5:34 Results for this AM MENTAL TELEPATHIST procedure are in the results section. MAGNESIUM Routine 03/21/2018 5:34 Results for this AM MENTAL TELEPATHIST procedure are in the results section. BASIC METABOLIC PANEL Routine 03/21/2018 5:34 Results for this (7) AM MENTAL TELEPATHIST procedure are in the results section. MR MRA ABDOMEN WITH Routine 03/20/2018 9:33 Results for this AND WITHOUT CONTRAST AM MENTAL TELEPATHIST procedure are in the results section. CBC W/PLT COUNT & Routine 03/20/2018 8:50 Results for this AUTO DIFFERENTIAL AM MENTAL TELEPATHIST procedure are in the results section. PREALBUMIN Routine 03/20/2018 8:50 Results for this AM MENTAL TELEPATHIST procedure are in the results section. BASIC METABOLIC PANEL Routine 03/20/2018 8:50 Results for this (7) AM MENTAL TELEPATHIST procedure are in the results section. PHOSPHORUS Routine 03/20/2018 8:50 Results for this AM MENTAL TELEPATHIST procedure are in the results section. MAGNESIUM Routine 03/20/2018 8:50 Results for this AM MENTAL TELEPATHIST procedure are in the results section. CBC W/PLT COUNT & Routine 03/20/2018 8:50 Results for this AUTO DIFFERENTIAL AM MENTAL TELEPATHIST procedure are in the results section. CT BRAIN WITHOUT IV Routine 03/19/2018 7:02 Results for this CONTRAST PM MENTAL TELEPATHIST procedure are in the results section. MR BRAIN WITHOUT IV Routine 03/18/2018 10:10 Results for this CONTRAST AM MENTAL TELEPATHIST procedure are in the results section. CBC W/PLT COUNT & STAT 03/18/2018 3:58 Results for this AUTO DIFFERENTIAL AM MENTAL TELEPATHIST procedure are in the results section. COMPREHENSIVE STAT 03/18/2018 3:58 Results for this METABOLIC PANEL AM MENTAL TELEPATHIST procedure are in the results section. LACTIC ACID, VENOUS, STAT 03/18/2018 3:58 Results for this WHOLE BLOOD AM MENTAL TELEPATHIST procedure are in the results section. CBC W/PLT COUNT & STAT 03/18/2018 3:58 Results for this AUTO DIFFERENTIAL AM MENTAL TELEPATHIST procedure are in the results section. POCT-GLUCOSE METER Routine 03/18/2018 2:56 Results for this AM MENTAL TELEPATHIST procedure are in the results section. REPORT OF PROCEDURE - 03/17/2018 3:42 ENDOSCOPY URL PM MENTAL TELEPATHIST TISSUE EXAM AP Routine 03/17/2018 3:39 Results for this PM MENTAL TELEPATHIST procedure are in the results section. UPPER 03/17/2018 3:15 Abdominal pain, ENDOSCOPY,BIOPSY PM MENTAL TELEPATHIST unspecified abdominal location Special Needs egd w/ anes CBC W/PLT COUNT & Routine 03/16/2018 4:57 Results for this AUTO DIFFERENTIAL PM MENTAL TELEPATHIST procedure are in the results section. TSH/FREE T4 IF Routine 03/16/2018 4:57 Results for this INDICATED PM MENTAL TELEPATHIST procedure are in the results section. HEPATIC FUNCTION Routine 03/16/2018 4:57 Results for this PANEL PM MENTAL TELEPATHIST procedure are in the results section. LIPASE Routine 03/16/2018 4:57 Results for this PM MENTAL TELEPATHIST procedure are in the results section. AMYLASE Routine 03/16/2018 4:57 Results for this PM MENTAL TELEPATHIST procedure are in the results section. PHOSPHORUS Routine 03/16/2018 4:57 Results for this PM MENTAL TELEPATHIST procedure are in the results section. MAGNESIUM Routine 03/16/2018 4:57 Results for this PM MENTAL TELEPATHIST procedure are in the results section. CBC W/PLT COUNT & Routine 03/16/2018 4:57 Results for this AUTO DIFFERENTIAL PM MENTAL TELEPATHIST procedure are in the results section. BASIC METABOLIC Routine 03/16/2018 4:57 Results for this PANEL (7) PM MENTAL TELEPATHIST procedure are in the results section. URINALYSIS W/ REFLEX STAT 03/08/2018 8:40 Results for this URINE CULTURE PM MENTAL TELEPATHIST procedure are in the results section. SCREEN, STAT 03/08/2018 8:40 Results for this URINE PM MENTAL TELEPATHIST procedure are in the results section. CBC W/PLT COUNT & STAT 03/08/2018 6:59 Results for this AUTO DIFFERENTIAL PM MENTAL TELEPATHIST procedure are in the results section. LIPASE STAT 03/08/2018 6:59 Results for this PM MENTAL TELEPATHIST procedure are in the results section. HEPATIC FUNCTION STAT 03/08/2018 6:59 Results for this PANEL PM MENTAL TELEPATHIST procedure are in the results section. BASIC METABOLIC STAT 03/08/2018 6:59 Results for this PANEL (7) PM MENTAL TELEPATHIST procedure are in the results section. PT/APTT STAT 03/08/2018 6:59 Results for this PM MENTAL TELEPATHIST procedure are in the results section. CBC W/PLT COUNT & STAT 03/08/2018 6:59 Results for this AUTO DIFFERENTIAL PM MENTAL TELEPATHIST procedure are in the results section. REPORT OF PROCEDURE 02/13/2018 2:14 - ENDOSCOPY URL PM MENTAL TELEPATHIST UPPER ENDOSCOPY 02/09/2018 2:00 Gastroesophageal reflux PM MENTAL TELEPATHIST disease, esophagitis presence not specified Gastroparesis Special Needs (BOTOX) MOTILITY 12/22/2017 2:00 PM CDT Gastroesophageal reflux disease without esophagitis Special Needs MOTILITY [731] after 04/16/2017 Results Triglycerides (03/24/2018 11:04 AM MENTAL TELEPATHIST)Only the most recent of2 resultswithin the time period is included. Triglycerides 186 mg/dL [facility] Specimen Blood Narrative Performed At TRIGLYCERIDE REFERENCE RANGE [facility] Low Risk<150 Borderline Risk 150-199 High [id number] Very High Risk >=500 Performing Organization Address [facility] Phone Number [address] [address] CENTER Phosphorus (03/24/2018 11:04 AM MENTAL TELEPATHIST)Only the most recent of6 resultswithin the time period is included. Phosphorus 3.7 2.3 - 4.7 mg/dL [facility] Specimen Blood Performing Organization Address City/[facility] Phone Number [address] [address] [phone] CENTER Magnesium (03/24/2018 11:04 AM MENTAL TELEPATHIST)Only the most recent of6 resultswithin the time period is included. Magnesium 2.5 1.6 - 2.6 mg/dL [facility] Specimen Blood Performing Organization Address City/[facility]/Zipcode Phone Number [facility] [address] [place] [address] [phone] [place] Basic Metabolic Panel (03/24/2018 11:04 AM MENTAL TELEPATHIST)Only the most recent of7 resultswithin the time period is included. Sodium 142 136 - 145 meq/L [facility] Potassium 4.3 3.5 - 5.1 meq/L [facility] Chloride 107 98 - 107 meq/L [facility] CO2 27 22 - 29 meq/L [facility] BUN 17 7 - 21 mg/dL [facility] Creatinine 0.73 0.57 - 1.25 mg/dL [facility] Glucose 71 70 - 105 mg/dL [facility] Calcium 9.7 8.4 - 10.2 mg/dL [facility] EGFR 88Comment: ESTIMATED GFR IS mL/min/1.73 sq m [facility] NOT ACCURATE [facility] CLEARANCE IN PREDICTING GLOMERULAR FILTRATION RATE. ESTIMATED GFR IS NOT APPLICABLE FOR DIALYSIS PATIENTS. Specimen Blood Performing Organization Address City/State/Zipcode Phone Number [facility] [address] [place] [address] [phone] [place] XR chest 1 view portable / bedside (03/23/2018 12:49 PM MENTAL TELEPATHIST) Narrative Performed At FINAL REPORT [facility] TECHNIQUE: Frontal chest radiograph dated 03/23/2018. CLINICAL HISTORY: PICC verification COMPARISON STUDY: None IMPRESSION: Right-sided PICC is seen with the tip projected over the superior vena cava near the right atrial junction. Lungs are clear. No pleural effusion or pneumothorax. Cardiomediastinal silhouette is normal in size. No pulmonary edema. No fracture. Signed: Roni Morocho MD Report Verified Date/Time:03/23/2018 13:56:32 Reading Location: [facility] Radiology Reading Room Procedure Note Interface, External Ris In - 03/23/2018 1:58 PM MENTAL TELEPATHIST FINAL REPORT TECHNIQUE: Frontal chest radiograph dated 03/23/2018. CLINICAL HISTORY: PICC verification COMPARISON STUDY: None IMPRESSION: Right-sided PICC is seen with the tip projected over the superior vena cava near the right atrial junction. Lungs are clear. No pleural effusion or pneumothorax. Cardiomediastinal silhouette is normal in size. No pulmonary edema. No fracture. Signed: Roni Morohco MD Report Verified Date/Time: 03/23/2018 13:56:32 Reading Location: [facility] Radiology Reading Room Performing Organization Address City/State/Zipcode Phone Number [facility] CBC with platelet count + automated diff (03/23/2018 6:34 AM MENTAL TELEPATHIST)Only the most recent of7 resultswithin the time period is included. WBC 3.7 3.5 - 10.5 K/L [facility] RBC 4.26 3.93 - 5.22 M/L [facility] Hemoglobin 12.9 11.2 - 15.7 GM/DL [facility] Hematocrit 36.8 34.1 - 44.9 % [facility] MCV 86.4 79.4 - 94.8 fL [facility] MCH 30.3 25.6 - 32.2 pg [facility] MCHC 35.1 32.2 - 35.5 GM/DL [facility] RDW 11.9 11.7 - 14.4 % [facility] Platelets 203 150 - 450 K/CU MM [facility] MPV 12.1 9.4 - 12.3 fL [facility] nRBC 0 0 - 0 /100 WBC [facility] % Neutros 40 % [facility] % Lymphs 45 % [facility] % Monos 10 % [facility] % Eos 4 % [facility] % Baso 1 % [facility] # Neutros 1.47 (L) 1.56 - 6.13 K/L [facility] # Lymphs 1.68 1.18 - 3.74 K/L [facility] # Monos 0.37 (H) 0.24 - 0.36 K/L [facility] # Eos 0.14 0.04 - 0.36 K/L [facility] # Baso 0.03 0.01 - 0.08 K/L [facility] Immature Granulocytes-Relative 0 0 - 1 % [facility] Specimen Blood - Arm, Left Performing Organization Address City/State/Zipcode Phone Number [facility] [address] [place] [address] [place] MRA abdomen without & with IV contrast (03/20/2018 9:33 AM MENTAL TELEPATHIST) Narrative Performed At FINAL REPORT [employer] [facility] MRA of the abdominal aorta and mesenteric arteries, 20 March 2018 INDICATION: This is a 42 with 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 suspected to be of renal vascular aetiology. This study is performed in an attempt to avoid an invasive procedure and potentially nephrotoxic contrast agent. This study is not optimised: Vinod Achieva MRI scan. Gradient echo images were performed for planning purposes. In addition, and non-ECG gated, gadolinium enhanced 3-D MRA and 3-D phase contrast MRA were performed.Multi-planar reconstruction were performed using an independent workstation. Please refer to the contrast sheet scanned in the EPIC system for the amount and route of contrast given. FINDINGS: THIS EXAMINATION IS NOT OPTIMISED IN THE ASSESSMENT OF EXTRAVASCULAR STRUCTURES. In the available images, the visualised liver and spleen appears unremarkable. The kidneys are normal in size and shape. No hydronephrosis or perirenal fluid collections identified. No free air free fluid seen in the abdomen. Assessment of the adrenal glands and pancreas are limited. This study is not optimizing assessment of the bowel structure. However, no obvious bowel dilation is identified. Assessment of the soft tissue and musculoskeletalstructures are limited. The abdominal aorta is normal in course and calibre. No ectasia or aneurysmal dilation is seen. No acute aortic pathology is present. The common iliac and external iliac arteries are widely patent, bilaterally. The IVC is unremarkable. The associated pelvic veins are unremarkable. No venous lumbar is identified. Single left and right renal arteries are seen that are widely patent. Single left and right renal veins are seen draining normally into the IVC. High quality was obtained. The celiac axis and SMA are widely patent. The BRADFORD is also patent. The tiny peripheral branches would not be well seen by MRI or CTA, due to the small size. There is no median arcuate ligament syndrome or SMA syndrome identified. The SMV, portal vein, splenic vein are patent with no venous lumbar is identified. CONCLUSIONS: 1.Unremarkable abdominal aorta. No acute aortic pathology is seen. No ectasia or aneurysmal dilation is identified. 2.The mesenteric arteries and veins are patent with no arterial stenosis or venous thrombosis identified. 3.The renal arteries and veins are patent with no stenosis or venous thrombosis identified. 4.Other findings as described above. This study is not optimised in the assessment of extravascular structures. 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 suspected to be of renal vascular aetiology. This study is performed in an attempt to avoid an invasive procedure and potentially nephrotoxic contrast agent. This study is not optimised: Vinod Achieva MRI scan. Gradient echo images were performed for planning purposes. In addition, and non-ECG gated, gadolinium enhanced 3-D MRA and 3-D phase contrast MRA were performed. Multi-planar reconstruction were performed using an independent workstation. Please refer to the contrast sheet scanned in the EPIC system for the amount and route of contrast given. FINDINGS: THIS EXAMINATION IS NOT OPTIMISED IN THE ASSESSMENT OF EXTRAVASCULAR STRUCTURES. In the available images, the visualised liver and spleen appears unremarkable. The kidneys are normal in size and shape. No hydronephrosis or perirenal fluid collections identified. No free air free fluid seen in the abdomen. Assessment of the adrenal glands and pancreas are limited. This study is not optimizing assessment of the bowel structure. However, no obvious bowel dilation is identified. Assessment of the soft tissue and musculoskeletal structures are limited. The abdominal aorta is normal in course and calibre. No ectasia or aneurysmal dilation is seen. No acute aortic pathology is present. The common iliac and external iliac arteries are widely patent, bilaterally. The IVC is unremarkable. The associated pelvic veins are unremarkable. No venous lumbar is identified. Single left and right renal arteries are seen that are widely patent. Single left and right renal veins are seen draining normally into the IVC. High quality was obtained. The celiac axis and SMA are widely patent. The BRADFORD is also patent. The tiny peripheral branches would not be well seen by MRI or CTA, due to the small size. There is no median arcuate ligament syndrome or SMA syndrome identified. The SMV, portal vein, splenic vein are patent with no venous lumbar is identified. CONCLUSIONS: 1. Unremarkable abdominal aorta. No acute aortic pathology is seen. No ectasia or aneurysmal dilation is identified. 2. The mesenteric arteries and veins are patent with no arterial stenosis or venous thrombosis identified. 3. The renal arteries and veins are patent with no stenosis or venous thrombosis identified. 4. Other findings as described above. This study is not optimised in the assessment of extravascular structures. Signed: Дмитрий Watson MD Report Verified Date/Time: 03/20/2018 15:44:37 Reading Location: [place] [address] Cardiology MRI Performing Organization Address City/State/Zipcode Phone Number [facility] Prealbumin (03/20/2018 8:50 AM MENTAL TELEPATHIST) Prealbumin 23Comment: Specimen slightly 14 - 45 mg/dL [facility] hemolyzed [facility] Specimen Blood - Arm, Right Performing Organization Address City/[facility]/Zipcode Phone Number [facility] MEDICAL [address] [place] [phone] brain without IV contrast (03/19/2018 7:02 PM MENTAL TELEPATHIST) Narrative Performed At FINAL REPORT [facility] CT, BRAIN, WITHOUT CONTRAST CLINICAL INDICATION:Headache, SAH suspected abnl MR brain w questionable SDH COMPARISON: None TECHNIQUE:Noncontrast axial CT imaging of the brain and skull. DOSE REDUCTION: Dose modulation, iterative reconstruction, and/or weight-based adjustment of the mA/kV was utilized to reduce the radiation dose to as low as reasonably achievable. FINDINGS: Previously described questionable bilateral subdural hematomas noted on prior MRI correspond to cortical veins on CT and no subdural hemorrhage is identified. No intracranial hemorrhage, midline shift or mass effect. Midline structures are normally developed. Mild chronic microvascular ischemic changes of the periventricular and subcortical white matter present. No hydrocephalus. Orbits are within normal limits. No obstructive paranasal sinus disease. IMPRESSION: Previously described questionable bilateral subdural hematomas noted on prior MRI correspond to cortical veins on CT and no subdural hemorrhage is identified. No acute intracranial process. Signed: Brad Valentin MD Report Verified Date/Time:03/19/2018 19:46:18 Reading Location: [address] Neuro Reading Room Procedure Note Interface, External Ris In - 03/19/2018 7:48 PM MENTAL TELEPATHIST FINAL REPORT CT, BRAIN, WITHOUT CONTRAST CLINICAL INDICATION: Headache, SAH suspected abnl MR brain w questionable SDH COMPARISON: None TECHNIQUE: Noncontrast axial CT imaging of the brain and skull. DOSE REDUCTION: Dose modulation, iterative reconstruction, and/or weight-based adjustment of the mA/kV was utilized to reduce the radiation dose to as low as reasonably achievable. FINDINGS: Previously described questionable bilateral subdural hematomas noted on prior MRI correspond to cortical veins on CT and no subdural hemorrhage is identified. No intracranial hemorrhage, midline shift or mass effect. Midline structures are normally developed. Mild chronic microvascular ischemic changes of the periventricular and subcortical white matter present. No hydrocephalus. Orbits are within normal limits. No obstructive paranasal sinus disease. IMPRESSION: Previously described questionable bilateral subdural hematomas noted on prior MRI correspond to cortical veins on CT and no subdural hemorrhage is identified. No acute intracranial process. Signed: Brad Valentin MD Report Verified Date/Time: 03/19/2018 19:46:18 Reading Location: [address] Neuro Reading Room Performing Organization Address City/State/Zipcode Phone Number [facility] MR brain without IV contrast (03/18/2018 10:10 AM MENTAL TELEPATHIST) Narrative Performed At FINAL REPORT [facility] MRI brain without contrast 03/18/2018 10:35 AM CLINICAL INDICATION: Headache, SAH suspected TECHNIQUE: Multiplanar, multisequence MR imaging of the brain was performed utilizing the following imaging sequences: Axial T1, T2, FLAIR, GRE, and DWI; sagittal and coronal T1-weighted images. COMPARISON: None available FINDINGS: There is questionable trace subdural hemorrhage without mass effect overlying both anterior frontal lobes. There is no infarct, intraparenchymal hematoma, mass, or hydrocephalus. Normal appearing flow-voids are present in the major intracranial vascular structures. The sellar and pineal regions are normal. The craniovertebral junction is intact. The orbits, face, and skull base are without worrisome finding. IMPRESSION: Questionable trace bifrontal subdural hemorrhage without mass effect, for which further evaluation with noncontrast head CT is recommended. Signed: Tadeo Lawrence MD Report Verified Date/Time:03/18/2018 10:37:43 Reading Location: [address] Neuro Reading Room Procedure Note Interface, External Ris In - 03/18/2018 11:49 AM MENTAL TELEPATHIST FINAL REPORT MRI brain without contrast 03/18/2018 10:35 AM CLINICAL INDICATION: Headache, SAH suspected TECHNIQUE: Multiplanar, multisequence MR imaging of the brain was performed utilizing the following imaging sequences: Axial T1, T2, FLAIR, GRE, and DWI; sagittal and coronal T1-weighted images. COMPARISON: None available FINDINGS: There is questionable trace subdural hemorrhage without mass effect overlying both anterior frontal lobes. There is no infarct, intraparenchymal hematoma, mass, or hydrocephalus. Normal appearing flow-voids are present in the major intracranial vascular structures. The sellar and pineal regions are normal. The craniovertebral junction is intact. The orbits, face, and skull base are without worrisome finding. IMPRESSION: Questionable trace bifrontal subdural hemorrhage without mass effect, for which further evaluation with noncontrast head CT is recommended. Signed: Tadeo Lawrence MD Report Verified Date/Time: 03/18/2018 10:37:43 Reading Location: [facility] B1 C013V Neuro Reading Room Performing Organization Address City/State/Zipcode Phone Number [facility] Lactic acid, venous, whole blood (03/18/2018 3:58 AM MENTAL TELEPATHIST) Lactate, Venous 1.2 0.5 - 2.2 mmol/L [facility] Specimen Blood Performing Organization Address City/[facility]/[place] [address] [phone] CENTER Comprehensive metabolic panel (03/18/2018 3:58 AM MENTAL TELEPATHIST) Protein, Total 6.1 6.0 - 8.3 gm/dL [facility] Albumin 3.6 3.5 - 5.0 g/dL [facility] Alkaline Phosphatase 65 40 - 150 U/L [facility] Total Bilirubin 0.4 0.2 - 1.2 mg/dL [facility] Sodium 141 136 - 145 meq/L [facility] Potassium 3.9 3.5 - 5.1 meq/L [facility] Chloride 107 98 - 107 meq/L [facility] CO2 25 22 - 29 meq/L [facility] BUN 11 7 - 21 mg/dL [facility] Creatinine 0.72 0.57 - 1.25 mg/dL [facility] Glucose 89 70 - 105 mg/dL [facility] Calcium 9.5 8.4 - 10.2 mg/dL [facility] AST 13 5 - 34 U/L [facility] ALT 10 6 - 55 U/L [facility] EGFR 89Comment: ESTIMATED GFR mL/min/1.73 sq m [facility] IS NOT ACCURATE [facility] CREATININE CLEARANCE IN PREDICTING GLOMERULAR FILTRATION RATE. ESTIMATED GFR IS NOT APPLICABLE FOR DIALYSIS PATIENTS. Specimen Blood Performing Organization Address City/State/Zipcode Phone Number [address] [phone] CENTER POC-Glucose meter (03/18/2018 2:56 AM MENTAL TELEPATHIST) POC-Glucose Meter 97Comment: TESTED AT 70 - 110 mg/dL [address] [address] Specimen Blood Performing Organization Address City/[facility] Cent[facility]ode Phone Number [address] [phone] CENTER REPORT OF PROCEDURE - ENDOSCOPY URL (03/17/2018 3:42 PM MENTAL TELEPATHIST) Narrative Performed At Tissue Exam (03/17/2018 3:39 PM MENTAL TELEPATHIST) Case Report Surgical Pathology Report Case: [id number] [facility] Authorizing Provider:Domingo Mcduffie MDCollected: 03/17/[address] [place] [address] Ordering Location: [address] Received: 03/20/2018 0848 Service Pathologist: Ish Tate MD Specimens: A) - Biopsy, Jejunum B) - Duodenum C) - Stomach DIAGNOSIS A. SMALL BOWEL, JEJUNUM, BIOPSY: [facility] - SMALL BOWEL MUCOSA WITH NO SIGNIFICANT PATHOLOGIC CHANGES [facility] - NEGATIVE FOR VILLOUS BLUNTING - NEGATIVE FOR SIGNIFICANT INCREASE OF INTRAEPITHELIAL LYMPHOCYTES B. DUODENUM, BIOPSY: - DUODENAL MUCOSA WITH NO SIGNIFICANT PATHOLOGIC CHANGES - NEGATIVE FOR VILLOUS BLUNTING - NEGATIVE FOR SIGNIFICANT INCREASE OF INTRAEPITHELIAL LYMPHOCYTES C. STOMACH, BIOPSY: - FEATURES SUGGESTIVE OF REACTIVE GASTROPATHY - NEGATIVE FOR H. PYLORI BY WARTHIN-STARRY STAIN Signing Pathologist Direct Phone Line: [phone] CPT Code(s) 02691 X 7, 22128 [facility] CLINICAL HISTORY Abdominal pain [facility] SPECIMEN SOURCE A. Jejunum biopsy. B. Duodenum. C. [facility] Stomach. [facility] GROSS DESCRIPTION Specimen is received in three containers of formalin all labeled with the patient's information. [facility] Specimen A: Labeled "jejunum biopsy" consists of two fragments of sears tissue measuring 0.1 and 0.2 cm, submitted entirely in A1. Specimen B: Labeled "duodenum" consists of two fragments of sears tissue measuring 0.1 and 0.3 cm, submitted in B1. Specimen C: Labeled "stomach" consists of two fragments of sears tissue measuring 0.2 and 0.3 cm, submitted in C1. CG/ew SPECIAL STUDIES The interpretation of this case included the use of immunohistochemistry or special stains. [facility] Immunohistochemistry technical testing was performed at [facility], Pathology Laboratory where it was developed and its performance characteristics were determined. It has not be en cleared or approved by the U.S. Food and Drug Administration. The FDA has determined that such clearance or approval is not necessary. The test is used for clinical purposes. It should not be regarde d as investigational or for research. This laboratory is certified under the Clinical Laboratory Improvement Amendments of 1988 (CLIA-88) as qualified to perform high complexity clinical laboratory testing. Specimen Tissue - Biopsy, Jejunum Performing Organization Address City/State/Zipcode Phone Number [address] [address] CENTER TSH/Free T4 If Indicated (03/16/2018 4:57 PM MENTAL TELEPATHIST) TSH 0.75 0.35 - 4.94 uIU/mL [facility] Specimen Blood - Antecubital, Left Performing Organization Address City/[facility]/Zipcode Phone Number [address] [address] [phone] CENTER Lipase (03/16/2018 4:57 PM MENTAL TELEPATHIST)Only the most recent of2 resultswithin the time period is included. Lipase 36 8 - 78 U/L [facility] Specimen Blood - Antecubital, Left Performing Organization Address [facility] Centercode Phone Number [facility] [address] [place] [phone] CENTER Amylase (03/16/2018 4:57 PM MENTAL TELEPATHIST) Amylase 57Comment: Specimen slightly 25 - 125 U/L [facility] hemolyzed [facility] Specimen Blood - Antecubital, Left Performing Organization Address [facility] Centercooh Phone Number [address] [address] [phone] [place] Hepatic function panel (03/16/2018 4:57 PM MENTAL TELEPATHIST)Only the most recent of2 resultswithin the time period is included. Protein, Total 8.0Comment: Specimen 6.0 - 8.3 gm/dL [facility] Albumin 4.5Comment: Specimen 3.5 - 5.0 g/dL [facility] Total Bilirubin 0.2Comment: Specimen 0.2 - 1.2 mg/dL [facility] Bilirubin, Direct 0.1Comment: Specimen 0.1 - 0.5 mg/dL [facility] Alkaline Phosphatase 95 40 - 150 U/L [facility] AST 20Comment: Specimen 5 - 34 U/L [facility] ALT 13Comment: Specimen 6 - 55 U/L [facility] Specimen Blood - Antecubital, Left Performing Organization Address [facility] Centercooh Phone Number [address] [address] [place] Urinalysis w/Microscopic + Reflex to Culture (03/08/2018 8:40 PM MENTAL TELEPATHIST) Color, UA Light Yellow [facility] Clarity, UA Clear [facility] Specific [place], UA 1.005 1.001 - 1.035 [facility] pH, UA 7.0 5.0 - 8.0 [facility] Protein, UA Negative Negative [facility] Glucose, UA Negative Negative [facility] Ketones, UA Negative Negative [facility] Bilirubin, UA Negative Negative [facility] Blood, UA Negative Negative [facility] Nitrite, UA Negative Negative [facility] Leukocytes, UA Negative Negative [facility] Urobilinogen, UA 0.2 0.2 - 1.0 mg/dL [facility] RBC, UA <1 /HPF [facility] WBC, UA 0 /HPF [facility] Squam Epithel, UA <1 /HPF [facility] Specimen Source [facility] Specimen Urine - Urine, Voided Performing Organization Address City/State/Zipcode Phone Number [address] [address] [phone] [place] Screen, urine (03/08/2018 8:40 PM MENTAL TELEPATHIST) Preg Test, Ur Negative [facility] Specimen Urine - Urine, Voided Performing Organization Address City/[facility]/Zipcode Phone Number [address] [address] [phone] [place] PT/aPTT (03/08/2018 6:59 PM MENTAL TELEPATHIST) Protime 13.0 11.7 - 14.7 seconds [facility] INR 1.0 <=5.9 [facility] PTT 33.4 22.5 - 36.0 seconds [facility] Specimen Blood - Arm, Right Narrative Performed At RECOMMENDED COUMADIN/WARFARIN INR THERAPY [facility] RANGES STANDARD DOSE: 2.0 - 3.0 Includes: PROPHYLAXIS for venous thrombosis, systemic embolization; TREATMENT for venous thrombosis and/or pulmonary embolus. HIGH RISK: Target INR is 2.5-3.5 for patients with mechanical heart valves. Performing Organization Address City/State/Zipcode Phone Number [facility] [address] [place] [address] [phone] CENTER REPORT OF PROCEDURE - ENDOSCOPY URL (02/13/2018 2:14 PM MENTAL TELEPATHIST) Narrative Performed At after 04/16/2017 Insurance Payer Benefit Plan / Subscriber ID Type Phone Address Group [employer] - [employer] SELECT US xxxxxxxxxx HMO/POS ACCESS BLUE CROSS/BLUE BCBS OS xxxxxxxxxxxx PPO [phone] [address] SHIELD POS/PPO/[place] [address] (Home) [place] [phone] (Work) Advance Directives For more information, please contact:[facility] [place], [place] [phone] Code Status Date Activated Date Inactivated Comments Full Code 03/16/2018 3:52 PM This code status was determined by: Patient
--- OUTSIDE RECORDS SUMMARY | 2018-04-17 17:49 | XMS REPORT ---
:1975 Author Organization [facility] Address [address] [place] [address] Care Team Providers Name Role Phone ERNESTO BENITEZ MARIA EUGENIA Unavailable Unavailable KALPANAOLGA NSA Unavailable Unavailable Problems This patient has no known problems. Allergies, Adverse Reactions, Alerts This patient has no known allergies or adverse reactions. Medications This patient has no known medications. Results Test Description Test Time Test Comments Text Results Atomic Results Result Comments TRIGLYCERIDES 2018-03-24 11:34:00 Test Item Value Reference Range Comments TRIGLYCERIDES (BEAKER) (test vunf=263) 186 mg/dL TRIGLYCERIDE REFERENCE RANGELow Risk <150Borderline Risk 150-199High Risk 200-499Very High Risk>=[id number] 11:34:00 Test Item Value Reference Range Comments MAGNESIUM (BEAKER) (test cukp=283) 2.5 mg/dL 1.6-2.6 [id number] 11:34:00 Test Item Value Reference Range Comments PHOSPHORUS (BEAKER) (test ywyv=444) 3.7 mg/dL 2.3-4.7 BASIC METABOLIC [id number] 11:34:00 Test Item Value Reference Range Comments SODIUM (BEAKER) (test 142 meq/L 136-145 pjfv=956) POTASSIUM (BEAKER) (test 4.3 meq/L 3.5-5.1 uifr=053) CHLORIDE (BEAKER) (test 107 meq/L 98-107 wilc=583) CO2 (BEAKER) (test 27 meq/L 22-29 ualu=160) BLOOD UREA NITROGEN 17 mg/dL 7-21 (BEAKER) (test ezhi=050) CREATININE (BEAKER) (test 0.73 mg/dL 0.57-1.25 qwza=404) GLUCOSE RANDOM (BEAKER) 71 mg/dL 70-105 (test mkgj=425) CALCIUM (BEAKER) (test 9.7 mg/dL 8.4-10.2 sdwt=098) EGFR (BEAKER) (test 88 mL/min/1.73 sq m ESTIMATED GFR IS NOT pbgu=7224) ACCURATE CREATININE CLEARANCE IN PREDICTING GLOMERULAR FILTRATION RATE. ESTIMATED GFR IS NOT APPLICABLE FOR DIALYSIS PATIENTS. [id number] 17:36:00 Test Item Value Reference Range Comments TRIGLYCERIDES (BEAKER) (test tdap=210) 173 mg/dL TRIGLYCERIDE REFERENCE RANGELow Risk <150Borderline Risk 150-199High Risk 200-499Very High Risk>=500RAD, CHEST, 1 VIEW, NON [id number] 13:56: 00Reason for exam:->PICC LINE TIP VERIFICATIONShould this be performed at the bedside?->YesFINAL REPORT TECHNIQUE: Frontal chest radiograph dated 03/23/2018. CLINICAL HISTORY: PICC verification COMPARISON STUDY: None IMPRESSION:Right-sided PICC is seen with the tip projected over the superior vena cava near the right atrial junction. Lungs are clear. No pleural effusion or pneumothorax. Cardiomediastinal silhouette is normal in size. No pulmonary edema. No fracture. Signed: Roni Bravo MDReport Verified Date/Time: 03/23/2018 13:56:32 Reading Location: [facility] Radiology Reading Room [id number] 07:25:00 Test Item Value Reference Range Comments PHOSPHORUS (BEAKER) (test gzoc=444) 3.8 mg/dL 2.3-4.7 [id number] 07:25:00 Test Item Value Reference Range Comments MAGNESIUM (BEAKER) (test ngml=611) 2.1 mg/dL 1.6-2.6 BASIC METABOLIC [id number] 07:25:00 Test Item Value Reference Range Comments SODIUM (BEAKER) (test 141 meq/L 136-145 wzjt=552) POTASSIUM (BEAKER) (test 4.3 meq/L 3.5-5.1 rkig=977) CHLORIDE (BEAKER) (test 107 meq/L 98-107 jblv=451) CO2 (BEAKER) (test 28 meq/L 22-29 hgfj=972) BLOOD UREA NITROGEN 7 mg/dL 7-21 (BEAKER) (test hsmo=349) CREATININE (BEAKER) (test 0.77 mg/dL 0.57-1.25 fryh=219) GLUCOSE RANDOM (BEAKER) 88 mg/dL 70-105 (test mbah=014) CALCIUM (BEAKER) (test 9.3 mg/dL 8.4-10.2 rfyz=699) EGFR (BEAKER) (test 83 mL/min/1.73 sq m ESTIMATED GFR IS NOT kaxv=5887) ACCURATE CREATININE CLEARANCE IN PREDICTING GLOMERULAR FILTRATION RATE. ESTIMATED GFR IS NOT APPLICABLE FOR DIALYSIS PATIENTS. CBC W/PLT COUNT & AUTO [id number] 07:03:00 Test Item Value Reference Range Comments WHITE BLOOD CELL COUNT (BEAKER) (test cehz=234) 3.7 K/ L 3.5-10.5 RED BLOOD CELL COUNT (BEAKER) (test bxwp=097) 4.26 M/ L 3.93-5.22 HEMOGLOBIN (BEAKER) (test tdxk=858) 12.9 GM/DL 11.2-15.7 HEMATOCRIT (BEAKER) (test frxu=526) 36.8 % 34.1-44.9 MEAN CORPUSCULAR VOLUME (BEAKER) (test ztuz=168) 86.4 fL 79.4-94.8 MEAN CORPUSCULAR HEMOGLOBIN (BEAKER) (test 30.3 pg 25.6-32.2 yrwk=571) MEAN CORPUSCULAR HEMOGLOBIN CONC (BEAKER) (test 35.1 GM/DL 32.2-35.5 jxvl=462) RED CELL DISTRIBUTION WIDTH (BEAKER) (test 11.9 % 11.7-14.4 lhsh=917) PLATELET COUNT (BEAKER) (test vjjx=481) 203 K/CU MM 150-450 MEAN PLATELET VOLUME (BEAKER) (test vfsd=160) 12.1 fL 9.4-12.3 NUCLEATED RED BLOOD CELLS (BEAKER) (test 0 /100 WBC 0-0 tyzl=245) NEUTROPHILS RELATIVE PERCENT (BEAKER) (test 40 % byxi=707) LYMPHOCYTES RELATIVE PERCENT (BEAKER) (test 45 % rbxr=274) MONOCYTES RELATIVE PERCENT (BEAKER) (test 10 % jrcd=245) EOSINOPHILS RELATIVE PERCENT (BEAKER) (test 4 % dziz=637) BASOPHILS RELATIVE PERCENT (BEAKER) (test 1 % wcxu=003) NEUTROPHILS ABSOLUTE COUNT (BEAKER) (test 1.47 K/ L 1.56-6.13 tztq=688) LYMPHOCYTES ABSOLUTE COUNT (BEAKER) (test 1.68 K/ L 1.18-3.74 upok=674) MONOCYTES ABSOLUTE COUNT (BEAKER) (test 0.37 K/ L 0.24-0.36 jrhq=079) EOSINOPHILS ABSOLUTE COUNT (BEAKER) (test 0.14 K/ L 0.04-0.36 ixhr=576) BASOPHILS ABSOLUTE COUNT (BEAKER) (test 0.03 K/ L 0.01-0.08 egbe=167) IMMATURE GRANULOCYTES-RELATIVE PERCENT (BEAKER) 0 % 0-1 (test zpaj=8251) BASIC METABOLIC [id number] 08:49:00 Test Item Value Reference Range Comments SODIUM (BEAKER) (test 141 meq/L 136-145 cius=942) POTASSIUM (BEAKER) (test 3.8 meq/L 3.5-5.1 rtup=152) CHLORIDE (BEAKER) (test 109 meq/L 98-107 qbgr=349) CO2 (BEAKER) (test 26 meq/L 22-29 dhru=630) BLOOD UREA NITROGEN 5 mg/dL 7-21 (BEAKER) (test jzpb=430) CREATININE (BEAKER) (test 0.72 mg/dL 0.57-1.25 obhg=042) GLUCOSE RANDOM (BEAKER) 79 mg/dL 70-105 (test wzoj=098) CALCIUM (BEAKER) (test 8.9 mg/dL 8.4-10.2 ugry=779) EGFR (BEAKER) (test 89 mL/min/1.73 sq m ESTIMATED GFR IS NOT ykmu=9700) ACCURATE CREATININE CLEARANCE IN PREDICTING GLOMERULAR FILTRATION RATE. ESTIMATED GFR IS NOT APPLICABLE FOR DIALYSIS PATIENTS. [id number] 08:46:00 Test Item Value Reference Range Comments PHOSPHORUS (BEAKER) (test xkfk=905) 3.6 mg/dL 2.3-4.7 [id number] 08:46:00 Test Item Value Reference Range Comments MAGNESIUM (BEAKER) (test opro=100) 1.8 mg/dL 1.6-2.6 CBC W/PLT COUNT & AUTO [id number] 08:39:00 Test Item Value Reference Range Comments WHITE BLOOD CELL COUNT (BEAKER) (test utoq=579) 3.5 K/ L 3.5-10.5 RED BLOOD CELL COUNT (BEAKER) (test mlay=518) 4.02 M/ L 3.93-5.22 HEMOGLOBIN (BEAKER) (test vxxy=440) 11.7 GM/DL 11.2-15.7 HEMATOCRIT (BEAKER) (test aysl=790) 34.9 % 34.1-44.9 MEAN CORPUSCULAR VOLUME (BEAKER) (test jaui=497) 86.8 fL 79.4-94.8 MEAN CORPUSCULAR HEMOGLOBIN (BEAKER) (test 29.1 pg 25.6-32.2 tjtf=849) MEAN CORPUSCULAR HEMOGLOBIN CONC (BEAKER) (test 33.5 GM/DL 32.2-35.5 dcdl=138) RED CELL DISTRIBUTION WIDTH (BEAKER) (test 11.9 % 11.7-14.4 eebu=205) PLATELET COUNT (BEAKER) (test rece=150) 180 K/CU MM 150-450 MEAN PLATELET VOLUME (BEAKER) (test rpwv=707) 12.7 fL 9.4-12.3 NUCLEATED RED BLOOD CELLS (BEAKER) (test 0 /100 WBC 0-0 hwyd=880) NEUTROPHILS RELATIVE PERCENT (BEAKER) (test 33 % hfmu=110) LYMPHOCYTES RELATIVE PERCENT (BEAKER) (test 52 % sjwc=979) MONOCYTES RELATIVE PERCENT (BEAKER) (test 9 % pqbc=060) EOSINOPHILS RELATIVE PERCENT (BEAKER) (test 5 % grgh=213) BASOPHILS RELATIVE PERCENT (BEAKER) (test 1 % waqd=738) NEUTROPHILS ABSOLUTE COUNT (BEAKER) (test 1.13 K/ L 1.56-6.13 ldyp=968) LYMPHOCYTES ABSOLUTE COUNT (BEAKER) (test 1.79 K/ L 1.18-3.74 fuec=732) MONOCYTES ABSOLUTE COUNT (BEAKER) (test 0.31 K/ L 0.24-0.36 vegs=469) EOSINOPHILS ABSOLUTE COUNT (BEAKER) (test 0.18 K/ L 0.04-0.36 unrn=237) BASOPHILS ABSOLUTE COUNT (BEAKER) (test 0.03 K/ L 0.01-0.08 wiln=278) IMMATURE GRANULOCYTES-RELATIVE PERCENT (BEAKER) 0 % 0-1 (test zbaj=3622) TISSUE [id number] 12:27:00Surgical Pathology Report Case: [id number] Authorizing Provider: Domingo Mcduffie MD Collected: 03/17/2018 1539 Ordering Location: [address] Received: 03/20/2018 0848 Service Pathologist: Ish Tate MD Specimens: A) - Biopsy, Jejunum B) -Duodenum C) - Stomach A. SMALL BOWEL, JEJUNUM, BIOPSY: - SMALL BOWEL MUCOSA WITH NO SIGNIFICANT PATHOLOGIC CHANGES - NEGATIVE FOR VILLOUS BLUNTING - NEGATIVE FOR SIGNIFICANT INCREASE OF INTRAEPITHELIAL LYMPHOCYTESB. DUODENUM, BIOPSY: - DUODENAL MUCOSA WITH NO SIGNIFICANT PATHOLOGIC CHANGES - NEGATIVE FOR VILLOUS BLUNTING - NEGATIVE FOR SIGNIFICANT INCREASE OF INTRAEPITHELIAL LYMPHOCYTESC. STOMACH, BIOPSY: - FEATURES SUGGESTIVE OF REACTIVE GASTROPATHY - NEGATIVE FOR H. PYLORI BY WARTHIN-STARRY STAIN Signing Pathologist Direct Phone Line: [phone] signed by Ish Tate MD on 2018 at 12:27 [id number] X 3, [id number] pain A. Jejunum biopsy. B. Duodenum. C. Stomach.Specimen is received in three containers of formalin all labeled with the patient's information. Specimen A: Labeled "jejunum biopsy" consists of two fragments of sears tissue measuring 0.1 and 0.2 cm, submitted entirely in A1. Specimen B: Labeled "duodenum" consists of two fragments of sears tissue measuring 0.1 and 0.3 cm, submitted in B1. Specimen C: Labeled "stomach" consists of two fragments of sears tissue measuring 0.2 and 0.3cm, submitted in C1. CG/ew The interpretation of this case included the use of immunohistochemistry or special stains. WARTHIN-STARRYImmunohistochemistry technical testing was performed at [facility] where it was developed and its performance characteristicswere determined. It has not been cleared or approved by the U.S. Food and Drug Administration. The FDA has determined that such clearance or approval is not necessary. The test is used for clinical purposes. It should not be regarded as investigational or for research. This laboratory is certified under the Clinical Laboratory Improvement Amendments of 1988 (CLIA-88) as qualified to perform high complexity clinical laboratory testing.[id number] 06:18: 00 Test Item Value Reference Range Comments PHOSPHORUS (BEAKER) (test dpee=413) 3.6 mg/dL 2.3-4.7 [id number] 06:18:00 Test Item Value Reference Range Comments MAGNESIUM (BEAKER) (test wied=014) 1.8 mg/dL 1.6-2.6 BASIC METABOLIC [id number] 06:18:00 Test Item Value Reference Range Comments SODIUM (BEAKER) (test 140 meq/L 136-145 gvto=771) POTASSIUM (BEAKER) (test 4.0 meq/L 3.5-5.1 dtwg=535) CHLORIDE (BEAKER) (test 109 meq/L 98-107 nave=030) CO2 (BEAKER) (test 26 meq/L 22-29 jjqa=030) BLOOD UREA NITROGEN 7 mg/dL 7-21 (BEAKER) (test hdld=595) CREATININE (BEAKER) (test 0.71 mg/dL 0.57-1.25 kiav=817) GLUCOSE RANDOM (BEAKER) 94 mg/dL 70-105 (test rtqw=509) CALCIUM (BEAKER) (test 8.8 mg/dL 8.4-10.2 fvyb=647) EGFR (BEAKER) (test 91 mL/min/1.73 sq m ESTIMATED GFR IS NOT rjay=9849) ACCURATE CREATININE CLEARANCE IN PREDICTING GLOMERULAR FILTRATION RATE. ESTIMATED GFR IS NOT APPLICABLE FOR DIALYSIS PATIENTS. CBC W/PLT COUNT & AUTO [id number] 06:14:00 Test Item Value Reference Range Comments WHITE BLOOD CELL COUNT (BEAKER) (test rdru=288) 3.4 K/ L 3.5-10.5 RED BLOOD CELL COUNT (BEAKER) (test gijj=203) 4.01 M/ L 3.93-5.22 HEMOGLOBIN (BEAKER) (test arhv=685) 11.7 GM/DL 11.2-15.7 HEMATOCRIT (BEAKER) (test bbgf=198) 34.2 % 34.1-44.9 MEAN CORPUSCULAR VOLUME (BEAKER) (test ihge=045) 85.3 fL 79.4-94.8 MEAN CORPUSCULAR HEMOGLOBIN (BEAKER) (test 29.2 pg 25.6-32.2 cpys=005) MEAN CORPUSCULAR HEMOGLOBIN CONC (BEAKER) (test 34.2 GM/DL 32.2-35.5 utgd=156) RED CELL DISTRIBUTION WIDTH (BEAKER) (test 11.6 % 11.7-14.4 nowo=074) PLATELET COUNT (BEAKER) (test mhgn=228) 177 K/CU MM 150-450 MEAN PLATELET VOLUME (BEAKER) (test lmds=050) 11.9 fL 9.4-12.3 NUCLEATED RED BLOOD CELLS (BEAKER) (test 0 /100 WBC 0-0 frik=753) NEUTROPHILS RELATIVE PERCENT (BEAKER) (test 33 % psnh=785) LYMPHOCYTES RELATIVE PERCENT (BEAKER) (test 52 % hwif=444) MONOCYTES RELATIVE PERCENT (BEAKER) (test 10 % amxa=769) EOSINOPHILS RELATIVE PERCENT (BEAKER) (test 4 % axbz=724) BASOPHILS RELATIVE PERCENT (BEAKER) (test 1 % lups=705) NEUTROPHILS ABSOLUTE COUNT (BEAKER) (test 1.13 K/ L 1.56-6.13 biec=818) LYMPHOCYTES ABSOLUTE COUNT (BEAKER) (test 1.76 K/ L 1.18-3.74 wesh=036) MONOCYTES ABSOLUTE COUNT (BEAKER) (test 0.34 K/ L 0.24-0.36 jaig=399) EOSINOPHILS ABSOLUTE COUNT (BEAKER) (test 0.13 K/ L 0.04-0.36 oijt=429) BASOPHILS ABSOLUTE COUNT (BEAKER) (test 0.02 K/ L 0.01-0.08 pbim=189) IMMATURE GRANULOCYTES-RELATIVE PERCENT (BEAKER) 0 % 0-1 (test tikt=0327) MR, MRA ABDOMEN, WITHOUT FOLLOW WITH [id number] 15:44:00FINAL REPORT MRA of the abdominal aorta and mesenteric arteries, March2018 INDICATION: This is a 42 with 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 suspected to be of renal vascular aetiology. This study is performed in an attempt toavoid an invasive procedure and potentially nephrotoxic contrast agent. This study is not optimised:[employer] MRI scan. Gradient echo images were performed for planning purposes. In addition, and non-ECG gated, gadolinium enhanced 3-D MRA and 3-D phase contrast MRA were performed. Multi-planarreconstruction were performed using an independent workstation. Please refer to the contrast sheet scanned in the EPIC system for the amount and route of contrast given. FINDINGS: THIS EXAMINATION IS NOT OPTIMISED IN THE ASSESSMENT OF EXTRAVASCULAR STRUCTURES. In the available images, the visualised liver and spleen appears unremarkable. The kidneys are normal in size and shape. No hydronephrosis orperirenal fluid collections identified. No free air free [...] draining normally into the IVC. High quality wasobtained. The celiac axis and SMA are widely [...] the assessment of extravascular structures. Signed: Дмитрий Holly MDReport Verified Date/Time: 03/20/2018 15:44:37 Reading Location: [place] [address] Cardiology MRI [id number] 09:38:00 Test Item Value Reference Range Comments PREALBUMIN (BEAKER) (test 23 mg/dL 14-45 Specimen slightly hemolyzed bwhy=051) [id number] 09:36:00 Test Item Value Reference Range Comments PHOSPHORUS (BEAKER) (test uamx=793) 3.2 mg/dL 2.3-4.7 [id number] 09:36:00 Test Item Value Reference Range Comments MAGNESIUM (BEAKER) (test wycb=942) 1.9 mg/dL 1.6-2.6 BASIC METABOLIC [id number] 09:36:00 Test Item Value Reference Range Comments SODIUM (BEAKER) (test 142 meq/L 136-145 hbcu=459) POTASSIUM (BEAKER) (test 3.3 meq/L 3.5-5.1 zqmc=205) CHLORIDE (BEAKER) (test 102 meq/L 98-107 lkeo=771) CO2 (BEAKER) (test 28 meq/L 22-29 biuw=264) BLOOD UREA NITROGEN 9 mg/dL 7-21 (BEAKER) (test blja=943) CREATININE (BEAKER) (test 0.83 mg/dL 0.57-1.25 auew=955) GLUCOSE RANDOM (BEAKER) 56 mg/dL 70-105 (test ygxj=454) CALCIUM (BEAKER) (test 9.8 mg/dL 8.4-10.2 npui=268) EGFR (BEAKER) (test 76 mL/min/1.73 sq m ESTIMATED GFR IS NOT avpg=7328) ACCURATE CREATININE CLEARANCE IN PREDICTING GLOMERULAR FILTRATION RATE. ESTIMATED GFR IS NOT APPLICABLE FOR DIALYSIS PATIENTS. CBC W/PLT COUNT & AUTO [id number] 09:14:00 Test Item Value Reference Range Comments WHITE BLOOD CELL COUNT (BEAKER) (test igln=800) 5.4 K/ L 3.5-10.5 RED BLOOD CELL COUNT (BEAKER) (test tqhk=817) 5.00 M/ L 3.93-5.22 HEMOGLOBIN (BEAKER) (test cggi=975) 14.5 GM/DL 11.2-15.7 HEMATOCRIT (BEAKER) (test pegr=180) 42.8 % 34.1-44.9 MEAN CORPUSCULAR VOLUME (BEAKER) (test gtfx=360) 85.6 fL 79.4-94.8 MEAN CORPUSCULAR HEMOGLOBIN (BEAKER) (test 29.0 pg 25.6-32.2 qily=912) MEAN CORPUSCULAR HEMOGLOBIN CONC (BEAKER) (test 33.9 GM/DL 32.2-35.5 kagj=170) RED CELL DISTRIBUTION WIDTH (BEAKER) (test 11.6 % 11.7-14.4 mwzn=446) PLATELET COUNT (BEAKER) (test dhwr=339) 217 K/CU MM 150-450 MEAN PLATELET VOLUME (BEAKER) (test glpd=310) 12.4 fL 9.4-12.3 NUCLEATED RED BLOOD CELLS (BEAKER) (test 0 /100 WBC 0-0 arfk=026) NEUTROPHILS RELATIVE PERCENT (BEAKER) (test 60 % goeh=283) LYMPHOCYTES RELATIVE PERCENT (BEAKER) (test 32 % hwro=764) MONOCYTES RELATIVE PERCENT (BEAKER) (test 6 % lxpq=566) EOSINOPHILS RELATIVE PERCENT (BEAKER) (test 1 % vuke=056) BASOPHILS RELATIVE PERCENT (BEAKER) (test 1 % cgyl=547) NEUTROPHILS ABSOLUTE COUNT (BEAKER) (test 3.22 K/ L 1.56-6.13 bjtr=481) LYMPHOCYTES ABSOLUTE COUNT (BEAKER) (test 1.70 K/ L 1.18-3.74 kfti=807) MONOCYTES ABSOLUTE COUNT (BEAKER) (test 0.31 K/ L 0.24-0.36 qhlz=330) EOSINOPHILS ABSOLUTE COUNT (BEAKER) (test 0.07 K/ L 0.04-0.36 oxqr=242) BASOPHILS ABSOLUTE COUNT (BEAKER) (test 0.04 K/ L 0.01-0.08 kdkb=483) IMMATURE GRANULOCYTES-RELATIVE PERCENT (BEAKER) 0 % 0-1 (test htgs=4984) CT, BRAIN, WITHOUT [id number] 19:46:00FINAL REPORT CT, BRAIN, WITHOUT CONTRAST CLINICAL INDICATION: Headache, SAH suspectedabnl MR brain w questionable SDH COMPARISON: None TECHNIQUE: Noncontrast axial CT imaging of the brain and skull. DOSE REDUCTION: Dose modulation, iterative reconstruction, and/or weight-based adjustment of the mA/ kV was utilized to reduce the radiation dose to as low as reasonably achievable. FINDINGS:Previously described questionable bilateral subdural hematomas noted on [...] identified. No acute intracranial process. Signed: Brad Gaspar Verified Date/Time: 03/19/2018 19:46:18 Reading Location: [address] Neuro Reading Room MR, BRAIN, WITHOUT [id number] 10:37:00FINAL REPORT MRI brain without contrast 2018 10:35 AM CLINICAL INDICATION: Headache, SAH suspected [...] base are without worrisome finding. IMPRESSION: Questionable tracebifrontal subdural hemorrhage without mass effect, for which further evaluation with noncontrast head CT is recommended. Signed: Tadeo Garcia Verified Date/Time: 10:37:43 Reading Location: [address] Neuro Reading Room COMPREHENSIVE METABOLIC [id number] 04:39:00 Test Item Value Reference Range Comments TOTAL PROTEIN (BEAKER) 6.1 gm/dL 6.0-8.3 (test bsmo=024) ALBUMIN (BEAKER) (test 3.6 g/dL 3.5-5.0 pagc=9904) ALKALINE PHOSPHATASE 65 U/L 40-150 (BEAKER) (test flsl=880) BILIRUBIN TOTAL (BEAKER) 0.4 mg/dL 0.2-1.2 (test yixn=547) SODIUM (BEAKER) (test 141 meq/L 136-145 kfjm=226) POTASSIUM (BEAKER) (test 3.9 meq/L 3.5-5.1 wfmg=406) CHLORIDE (BEAKER) (test 107 meq/L 98-107 qkjk=584) CO2 (BEAKER) (test 25 meq/L 22-29 utaq=325) BLOOD UREA NITROGEN 11 mg/dL 7-21 (BEAKER) (test nocz=814) CREATININE (BEAKER) (test 0.72 mg/dL 0.57-1.25 wcle=036) GLUCOSE RANDOM (BEAKER) 89 mg/dL 70-105 (test qbvs=378) CALCIUM (BEAKER) (test 9.5 mg/dL 8.4-10.2 nvin=200) AST (SGOT) (BEAKER) (test 13 U/L 5-34 pwdt=702) ALT (SGPT) (BEAKER) (test 10 U/L 6-55 kuru=884) EGFR (BEAKER) (test 89 mL/min/1.73 sq m ESTIMATED GFR IS NOT mtwa=9531) ACCURATE CREATININE CLEARANCE IN PREDICTING GLOMERULAR FILTRATION RATE. ESTIMATED GFR IS NOT APPLICABLE FOR DIALYSIS PATIENTS. LACTIC ACID, VENOUS, WHOLE [id number] 04:30:00 Test Item Value Reference Range Comments LACTATE BLOOD VENOUS (2) (BEAKER) (test 1.2 mmol/L 0.5-2.2 ccmd=1539) CBC W/PLT COUNT & AUTO [id number] 04:18:00 Test Item Value Reference Range Comments WHITE BLOOD CELL COUNT (BEAKER) (test qlgy=184) 5.1 K/ L 3.5-10.5 RED BLOOD CELL COUNT (BEAKER) (test lztw=296) 4.38 M/ L 3.93-5.22 HEMOGLOBIN (BEAKER) (test mfgy=988) 12.7 GM/DL 11.2-15.7 HEMATOCRIT (BEAKER) (test arek=812) 37.7 % 34.1-44.9 MEAN CORPUSCULAR VOLUME (BEAKER) (test kesb=716) 86.1 fL 79.4-94.8 MEAN CORPUSCULAR HEMOGLOBIN (BEAKER) (test 29.0 pg 25.6-32.2 fpoo=161) MEAN CORPUSCULAR HEMOGLOBIN CONC (BEAKER) (test 33.7 GM/DL 32.2-35.5 vrtx=333) RED CELL DISTRIBUTION WIDTH (BEAKER) (test 11.3 % 11.7-14.4 taor=619) PLATELET COUNT (BEAKER) (test mhfc=455) 200 K/CU MM 150-450 MEAN PLATELET VOLUME (BEAKER) (test ssmt=111) 12.0 fL 9.4-12.3 NUCLEATED RED BLOOD CELLS (BEAKER) (test 0 /100 WBC 0-0 obfq=383) NEUTROPHILS RELATIVE PERCENT (BEAKER) (test 70 % rsni=397) LYMPHOCYTES RELATIVE PERCENT (BEAKER) (test 25 % bfsn=292) MONOCYTES RELATIVE PERCENT (BEAKER) (test 5 % qnxs=817) EOSINOPHILS RELATIVE PERCENT (BEAKER) (test 0 % pgyn=635) BASOPHILS RELATIVE PERCENT (BEAKER) (test 0 % zkny=168) NEUTROPHILS ABSOLUTE COUNT (BEAKER) (test 3.55 K/ L 1.56-6.13 wntb=686) LYMPHOCYTES ABSOLUTE COUNT (BEAKER) (test 1.24 K/ L 1.18-3.74 snzs=295) MONOCYTES ABSOLUTE COUNT (BEAKER) (test 0.23 K/ L 0.24-0.36 qbgy=949) EOSINOPHILS ABSOLUTE COUNT (BEAKER) (test 0.00 K/ L 0.04-0.36 sgeu=172) BASOPHILS ABSOLUTE COUNT (BEAKER) (test 0.02 K/ L 0.01-0.08 bklc=805) IMMATURE GRANULOCYTES-RELATIVE PERCENT (BEAKER) 0 % 0-1 (test frap=2491) POCT-GLUCOSE [id number] 02:57:00 Test Item Value Reference Range Comments POC-GLUCOSE METER (BEAKER) 97 mg/dL 70-110 TESTED AT [facility] [address] [facility] (test kehh=9670) [facility] [address] TSH/FREE T4 IF [id number] 17:54:00 Test Item Value Reference Range Comments THYROID STIMULATING HORMONE (BEAKER) (test 0.75 uIU/mL 0.35-4.94 wpkb=624) [id number] 17:36:00 Test Item Value Reference Range Comments LIPASE (BEAKER) (test ifev=592) 36 U/L 8-78 [id number] 17:36:00 Test Item Value Reference Range Comments AMYLASE (BEAKER) (test wctd=453) 57 U/L 25-125 Specimen slightly hemolyzed HEPATIC FUNCTION [id number] 17:36:00 Test Item Value Reference Range Comments TOTAL PROTEIN (BEAKER) (test 8.0 gm/dL 6.0-8.3 Specimen slightly hemolyzed xnue=404) ALBUMIN (BEAKER) (test 4.5 g/dL 3.5-5.0 Specimen slightly hemolyzed dxeu=3588) BILIRUBIN TOTAL (BEAKER) (test 0.2 mg/dL 0.2-1.2 Specimen slightly hemolyzed maqz=304) BILIRUBIN DIRECT (BEAKER) (test 0.1 mg/dL 0.1-0.5 Specimen slightly hemolyzed amun=009) ALKALINE PHOSPHATASE (BEAKER) 95 U/L 40-150 (test kpqd=807) AST (SGOT) (BEAKER) (test 20 U/L 5-34 Specimen slightly hemolyzed ryrs=270) ALT (SGPT) (BEAKER) (test 13 U/L 6-55 Specimen slightly hemolyzed jius=966) [id number] 17:35:00 Test Item Value Reference Range Comments MAGNESIUM (BEAKER) (test 2.2 mg/dL 1.6-2.6 Specimen slightly hemolyzed iklu=806) [id number] 17:35:00 Test Item Value Reference Range Comments PHOSPHORUS (BEAKER) (test 3.4 mg/dL 2.3-4.7 Specimen slightly hemolyzed zzxx=622) BASIC METABOLIC [id number] 17:35:00 Test Item Value Reference Range Comments SODIUM (BEAKER) (test 141 meq/L 136-145 wbkk=659) POTASSIUM (BEAKER) (test 3.6 meq/L 3.5-5.1 Specimen slightly owcd=827) hemolyzed CHLORIDE (BEAKER) (test 104 meq/L 98-107 ackr=280) CO2 (BEAKER) (test 28 meq/L 22-29 fcrm=709) BLOOD UREA NITROGEN 9 mg/dL 7-21 (BEAKER) (test doci=081) CREATININE (BEAKER) (test 0.82 mg/dL 0.57-1.25 Specimen slightly sybd=713) hemolyzed GLUCOSE RANDOM (BEAKER) 93 mg/dL 70-105 (test igwy=086) CALCIUM (BEAKER) (test 10.0 mg/dL 8.4-10.2 dqiq=811) EGFR (BEAKER) (test 77 mL/min/1.73 sq m ESTIMATED GFR IS NOT cbhk=0093) ACCURATE CREATININE CLEARANCE IN PREDICTING GLOMERULAR FILTRATION RATE. ESTIMATED GFR IS NOT APPLICABLE FOR DIALYSIS PATIENTS. CBC W/PLT COUNT & AUTO [id number] 17:18:00 Test Item Value Reference Range Comments WHITE BLOOD CELL COUNT (BEAKER) (test lzzq=051) 5.3 K/ L 3.5-10.5 RED BLOOD CELL COUNT (BEAKER) (test saax=305) 4.76 M/ L 3.93-5.22 HEMOGLOBIN (BEAKER) (test mlqa=719) 14.0 GM/DL 11.2-15.7 HEMATOCRIT (BEAKER) (test zruj=725) 41.5 % 34.1-44.9 MEAN CORPUSCULAR VOLUME (BEAKER) (test lehj=137) 87.2 fL 79.4-94.8 MEAN CORPUSCULAR HEMOGLOBIN (BEAKER) (test 29.4 pg 25.6-32.2 rckj=149) MEAN CORPUSCULAR HEMOGLOBIN CONC (BEAKER) (test 33.7 GM/DL 32.2-35.5 bcmx=321) RED CELL DISTRIBUTION WIDTH (BEAKER) (test 11.8 % 11.7-14.4 hene=995) PLATELET COUNT (BEAKER) (test ydgo=284) 219 K/CU MM 150-450 MEAN PLATELET VOLUME (BEAKER) (test uutv=314) 12.4 fL 9.4-12.3 NUCLEATED RED BLOOD CELLS (BEAKER) (test 0 /100 WBC 0-0 nazx=292) NEUTROPHILS RELATIVE PERCENT (BEAKER) (test 49 % tdlk=154) LYMPHOCYTES RELATIVE PERCENT (BEAKER) (test 42 % gbym=131) MONOCYTES RELATIVE PERCENT (BEAKER) (test 6 % vfti=211) EOSINOPHILS RELATIVE PERCENT (BEAKER) (test 2 % jgen=616) BASOPHILS RELATIVE PERCENT (BEAKER) (test 1 % qtci=638) NEUTROPHILS ABSOLUTE COUNT (BEAKER) (test 2.61 K/ L 1.56-6.13 qcqh=144) LYMPHOCYTES ABSOLUTE COUNT (BEAKER) (test 2.23 K/ L 1.18-3.74 cznb=095) MONOCYTES ABSOLUTE COUNT (BEAKER) (test 0.30 K/ L 0.24-0.36 plct=909) EOSINOPHILS ABSOLUTE COUNT (BEAKER) (test 0.11 K/ L 0.04-0.36 vyom=161) BASOPHILS ABSOLUTE COUNT (BEAKER) (test 0.04 K/ L 0.01-0.08 eygz=636) IMMATURE GRANULOCYTES-RELATIVE PERCENT (BEAKER) 0 % 0-1 (test fpme=1485) URINALYSIS W/ REFLEX URINE [id number] 20:59:00 Test Item Value Reference Range Comments COLOR (BEAKER) (test rmxf=885) Light Yellow CLARITY (BEAKER) (test qpgh=414) Clear SPECIFIC GRAVITY UA (BEAKER) (test rmhu=635) 1.005 1.001-1.035 PH UA (BEAKER) (test aaos=001) 7.0 5.0-8.0 PROTEIN UA (BEAKER) (test nudx=157) Negative Negative GLUCOSE UA (BEAKER) (test fzow=963) Negative Negative KETONES UA (BEAKER) (test wawp=721) Negative Negative BILIRUBIN UA (BEAKER) (test xdeo=547) Negative Negative BLOOD UA (BEAKER) (test kjsl=332) Negative Negative NITRITE UA (BEAKER) (test ndyi=466) Negative Negative LEUKOCYTE ESTERASE UA (BEAKER) (test eyig=574) Negative Negative UROBILINOGEN UA (BEAKER) (test iywl=768) 0.2 mg/dL 0.2-1.0 RBC UA (BEAKER) (test umet=317) < /HPF WBC UA (BEAKER) (test jmxo=777) 0 /HPF SQUAMOUS EPITHELIAL (BEAKER) (test ohhe=491) < /HPF SOURCE(BEAKER) (test fpyo=3914) SCREEN, [id number] 20:57:00 Test Item Value Reference Range Comments TEST URINE (BEAKER) (test larf=504) Negative [id number] 19:27:00 Test Item Value Reference Range Comments LIPASE (BEAKER) (test cfah=292) 20 U/L 8-78 BASIC METABOLIC [id number] 19:27:00 Test Item Value Reference Range Comments SODIUM (BEAKER) (test 142 meq/L 136-145 ilor=083) POTASSIUM (BEAKER) (test 3.8 meq/L 3.5-5.1 vquq=788) CHLORIDE (BEAKER) (test 108 meq/L 98-107 hvcu=857) CO2 (BEAKER) (test 27 meq/L 22-29 mjlo=073) BLOOD UREA NITROGEN 10 mg/dL 7-21 (BEAKER) (test rrrm=537) CREATININE (BEAKER) (test 0.75 mg/dL 0.57-1.25 iwcz=729) GLUCOSE RANDOM (BEAKER) 103 mg/dL 70-105 (test llvu=894) CALCIUM (BEAKER) (test 9.1 mg/dL 8.4-10.2 llrp=958) EGFR (BEAKER) (test 85 mL/min/1.73 sq m ESTIMATED GFR IS NOT atxl=9480) ACCURATE CREATININE CLEARANCE IN PREDICTING GLOMERULAR FILTRATION RATE. ESTIMATED GFR IS NOT APPLICABLE FOR DIALYSIS PATIENTS. HEPATIC FUNCTION [id number] 19:27:00 Test Item Value Reference Range Comments TOTAL PROTEIN (BEAKER) (test vsfz=016) 6.7 gm/dL 6.0-8.3 ALBUMIN (BEAKER) (test xker=0510) 4.0 g/dL 3.5-5.0 BILIRUBIN TOTAL (BEAKER) (test vkgx=525) 0.3 mg/dL 0.2-1.2 BILIRUBIN DIRECT (BEAKER) (test ecua=815) 0.1 mg/dL 0.1-0.5 ALKALINE PHOSPHATASE (BEAKER) (test prrt=925) 80 U/L 40-150 AST (SGOT) (BEAKER) (test hkyc=409) 16 U/L 5-34 ALT (SGPT) (BEAKER) (test vfjh=664) 15 U/L 6-55 [id number] 19:26:00 Test Item Value Reference Range Comments PROTIME (BEAKER) (test dade=526) 13.0 seconds 11.7-14.7 INR (BEAKER) (test tiib=142) 1.0 <=5.9 PARTIAL THROMBOPLASTIN TIME (BEAKER) (test 33.4 seconds 22.5-36.0 splm=937) RECOMMENDED COUMADIN/WARFARIN INR THERAPY RANGESSTANDARD DOSE: 2.0 - 3.0 Includes: PROPHYLAXIS forvenous thrombosis, systemic embolization; TREATMENT for venous thrombosis and/or pulmonary embolus.HIGH RISK: Target INR is 2.5-3.5 for patients with mechanical heart valves.CBC W/PLT COUNT & AUTO [id number] 19:10:00 Test Item Value Reference Range Comments WHITE BLOOD CELL COUNT (BEAKER) (test hxww=777) 4.8 K/ L 3.5-10.5 RED BLOOD CELL COUNT (BEAKER) (test hfre=654) 4.27 M/ L 3.93-5.22 HEMOGLOBIN (BEAKER) (test zscu=578) 12.6 GM/DL 11.2-15.7 HEMATOCRIT (BEAKER) (test jsay=652) 37.0 % 34.1-44.9 MEAN CORPUSCULAR VOLUME (BEAKER) (test fjbg=543) 86.7 fL 79.4-94.8 MEAN CORPUSCULAR HEMOGLOBIN (BEAKER) (test 29.5 pg 25.6-32.2 yadu=679) MEAN CORPUSCULAR HEMOGLOBIN CONC (BEAKER) (test 34.1 GM/DL 32.2-35.5 ynen=998) RED CELL DISTRIBUTION WIDTH (BEAKER) (test 11.9 % 11.7-14.4 pwat=050) PLATELET COUNT (BEAKER) (test vmzx=589) 210 K/CU MM 150-450 MEAN PLATELET VOLUME (BEAKER) (test tquk=051) 12.1 fL 9.4-12.3 NUCLEATED RED BLOOD CELLS (BEAKER) (test 0 /100 WBC 0-0 kilx=866) NEUTROPHILS RELATIVE PERCENT (BEAKER) (test 41 % dohk=526) LYMPHOCYTES RELATIVE PERCENT (BEAKER) (test 47 % qjyk=620) MONOCYTES RELATIVE PERCENT (BEAKER) (test 9 % uhrr=139) EOSINOPHILS RELATIVE PERCENT (BEAKER) (test 2 % rgib=232) BASOPHILS RELATIVE PERCENT (BEAKER) (test 1 % ysga=397) NEUTROPHILS ABSOLUTE COUNT (BEAKER) (test 1.96 K/ L 1.56-6.13 xwnl=801) LYMPHOCYTES ABSOLUTE COUNT (BEAKER) (test 2.24 K/ L 1.18-3.74 aasz=446) MONOCYTES ABSOLUTE COUNT (BEAKER) (test 0.42 K/ L 0.24-0.36 pdmv=781) EOSINOPHILS ABSOLUTE COUNT (BEAKER) (test 0.11 K/ L 0.04-0.36 zvnn=658) BASOPHILS ABSOLUTE COUNT (BEAKER) (test 0.03 K/ L 0.01-0.08 ltgt=280) IMMATURE GRANULOCYTES-RELATIVE PERCENT (BEAKER) 0 % 0-1 (test iatf=0684)
[2018-04-17] MEDS ORDERED: NA CHLORIDE 0.9% 1,000 ML ONE (19:19)
--- NOTE | 2018-04-17 21:14 | ER ---
Nurse's Notes [facility] Name: Gifty Parker Age: 42 yrs Sex: Female : 1975 Arrival Date: 04/17/2018 Time: 17:49 Bed 30 Private MD: Marcio Wilson Diagnosis: Dehydration Presentation: 04/17 18:06 Presenting complaint: Patient states: "the home health nurse came to check me today and aa5 draw my blood and she said she called my doctor and he said I was dehydrated and to come to the ER to get IV fluids". Pt states "I've been getting TPN since March 23". Transition of care: patient was not received from another setting of care. Onset of symptoms was April 17, 2018. Risk Assessment: Do you want to hurt yourself or someone else? Patient reports no desire to harm self or others. Initial Sepsis Screen: Does the patient meet any 2 criteria? No. Patient's initial sepsis screen is negative. Does the patient have a suspected source of infection? No. Patient's initial sepsis screen is negative. Care prior to arrival: None. 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 - Social history:: Smoking status: Patient/guardian denies using tobacco, Patient/guardian denies using alcohol, street drugs, The patient lives with family. - Ebola Screening: : No symptoms or risks identified at this time. - Family history:: not pertinent. - Hospitalizations: : No recent hospitalization is reported. Screenin:16 Abuse screen: Denies threats or abuse. Nutritional screening: No deficits noted. tl3 Tuberculosis screening: No symptoms or risk factors identified. Fall Risk None identified. Assessment: 19:13 Reassessment: No changes from previously documented assessment. Patient and/or family tl3 updated on plan of care and expected duration. Pain level reassessed. Patient is alert, oriented x 3, equal unlabored respirations, skin warm/dry/pink. 20:28 Reassessment: Patient appears in no apparent distress at this time. No changes from tl3 previously documented assessment. Patient and/or family updated on plan of care and expected duration. Pain level reassessed. Patient is alert, oriented x 3, equal unlabored respirations, skin warm/dry/pink. 21:16 Reassessment: Patient appears in no apparent distress at this time. No changes from tl3 previously documented assessment. Patient and/or family updated on plan of care and expected duration. Pain level reassessed. Patient is alert, oriented x 3, equal unlabored respirations, skin warm/dry/pink. pt being discharged. Vital Signs: 18:08 BP 120 / 83; Pulse 85; Resp 18 S; Temp 97.5(TE); Pulse Ox 100% on R/A; Weight 64.41 kg aa5 (R); Height 5 ft. 3 in. (160.02 cm) (R); Pain 6/10; 19:13 BP 136 / 76; Pulse 80; Resp 18; Pulse Ox 100% ; tl3 20:28 BP 136 / 81; Pulse 68; Resp 18; Pulse Ox 100% ; tl3 21:16 BP 149 / 94; Pulse 68; Resp 18; Pulse Ox 100% on R/A; tl3 18:08 Body Mass Index 25.15 (64.41 kg, 160.02 cm) aa5 ED Course: 17:49 Patient arrived in ED. mr 17:50 Marcio Wilson MD is Private Physician. mr 18:06 Arm band placed on. aa5 18:07 Triage completed. aa5 18:45 Samuel De La Paz MD is Attending Physician. ma2 19:05 Kavitha Sanders, RADHA is Primary Nurse. tl3 21:16 Patient has correct armband on for positive identification. tl3 21:16 No provider procedures requiring assistance completed. IV discontinued, intact, tl3 bleeding controlled, No redness/swelling at site. Pressure dressing applied. Administered Medications: 19:06 Drug: NS 0.9% 1000 ml Route: IV; Rate: 1 bolus; Site: left antecubital; Delivery: tl3 Primary tubing; 20:13 Follow up: IV Status: Completed infusion; IV Intake: 1000ml tl3 Intake: 20:13 IV: 1000ml; Total: 1000ml. tl3 Outcome: 21:13 Discharge ordered by . merritt 21:16 Discharged to home ambulatory. tl3 21:16 Condition: stable 21:16 Discharge instructions given to patient, family, Instructed on discharge instructions, follow up and referral plans. Demonstrated understanding of instructions, follow-up care. 21:20 Patient left the ED. tl3 Signatures: Gill Cleary mr LopesShabnam, RN RN aa5 Samuel De La Paz MD MD ma2 Kavitha Sanders RN RN tl3
--- NOTE | 2018-04-17 21:14 | EDPHYS ---
Physician Documentation [facility] Name: Gifty Parker Age: 42 yrs Sex: Female : 1975 Arrival Date: 04/17/2018 Time: 17:49 Bed 30 Private MD: Marcio Wilson ED Physician Samuel De La Paz HPI: 04/17 19:02 This 42 yrs old Female presents to ER via Ambulatory with complaints of ma2 Dehydration. 19:02 Onset: The symptoms/episode began/occurred gradually, 1 week(s) ago. Severity of ma2 symptoms: At their worst the symptoms were moderate in the emergency department the symptoms are unchanged. The patient has experienced similar episodes in the past. 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 - Social history:: Smoking status: Patient/guardian denies using tobacco, Patient/guardian denies using alcohol, street drugs, The patient lives with family. - Ebola Screening: : No symptoms or risks identified at this time. - Family history:: not pertinent. - Hospitalizations: : No recent hospitalization is reported. ROS: 19:02 Neck: Negative for injury, pain, and swelling, Cardiovascular: Negative for chest pain, ma2 palpitations, and edema. 19:02 Constitutional: Positive for chills, Negative for body aches, fever, poor PO intake. 19:02 Abdomen/GI: Negative for abdominal pain, nausea, vomiting, and diarrhea, vomiting, constipation, abdominal cramps, black/tarry stool, rectal pain, bowel incontinence. 19:02 All other systems are negative. Exam: 19:02 Constitutional: This is a well developed, well nourished patient who is awake, alert, ma2 and in no acute distress. Chest/axilla: Normal chest wall appearance and motion. Nontender with no deformity. No lesions are appreciated. Cardiovascular: Regular rate and rhythm with a normal S1 and S2. No gallops, murmurs, or rubs. Normal PMI, no JVD. No pulse deficits. Respiratory: Lungs have equal breath sounds bilaterally, clear to auscultation and percussion. No rales, rhonchi or wheezes noted. No increased work of breathing, no retractions or nasal flaring. Abdomen/GI: Soft, non-tender, with normal bowel sounds. No distension or tympany. No guarding or rebound. No evidence of tenderness throughout. MS/ Extremity: Pulses equal, no cyanosis. Neurovascular intact. Full, normal range of motion. Neuro: Awake and alert, GCS 15, oriented to person, place, time, and situation. Cranial nerves II-XII grossly intact. Motor strength 5/5 in all extremities. Sensory grossly intact. Cerebellar exam normal. Normal gait. Vital Signs: 18:08 BP 120 / 83; Pulse 85; Resp 18 S; Temp 97.5(TE); Pulse Ox 100% on R/A; Weight 64.41 kg aa5 (R); Height 5 ft. 3 in. (160.02 cm) (R); Pain 6/10; 19:13 BP 136 / 76; Pulse 80; Resp 18; Pulse Ox 100% ; tl3 20:28 BP 136 / 81; Pulse 68; Resp 18; Pulse Ox 100% ; tl3 21:16 BP 149 / 94; Pulse 68; Resp 18; Pulse Ox 100% on R/A; tl3 18:08 Body Mass Index 25.15 (64.41 kg, 160.02 cm) aa5 MDM: 18:45 Patient medically screened. ma2 19:02 Differential Diagnosis dehydration, fatigue vs chronic disease . Data reviewed: vital mn2 signs, nurses notes. Counseling: I had a detailed discussion with the patient and/or guardian regarding: the historical points, exam findings, and any diagnostic results supporting the discharge/admit diagnosis, the presence of at least one elevated blood pressure reading (>120/80) during this emergency department visit, the need for outpatient follow up. Response to treatment: the patient's symptoms have markedly improved after treatment. Administered Medications: 19:06 Drug: NS 0.9% 1000 ml Route: IV; Rate: 1 bolus; Site: left antecubital; Delivery: tl3 Primary tubing; 20:13 Follow up: IV Status: Completed infusion; IV Intake: 1000ml tl3 Disposition: 04/17/18 21:13 Discharged to Home. Impression: Dehydration. - Condition is Stable. - Discharge Instructions: Dehydration, Adult. - Medication Reconciliation Form, Thank You Letter, Antibiotic Education, Prescription Opioid Use form. - Follow up: Private Physician; When: Tomorrow; Reason: Continuance of care. Signatures: Shabnam Lopes, RN RN aa5 Samuel De La Paz MD MD ma2 Kavitha Sanders RN RN tl3 Corrections: (The following items were deleted from the chart) 21:20 21:13 04/17/2018 21:13 Discharged to Home. Impression: Dehydration. Condition is tl3 Stable. Forms are Medication Reconciliation Form, Thank You Letter, Antibiotic Education, Prescription Opioid Use. Follow up: Private Physician; When: Tomorrow; Reason: Continuance of care. merritt
[2018-04-17 22:14] VITALS: TEMP 97.5; O2SAT 100
[2018-04-17 22:18] VITALS: BP 149/94
== END 2018-04-17 21:20 | disposition home or self-care (01) ==
LOC: ER 17:44
DX: E86.0 Dehydration (principal); I10 Essential (primary) hypertension; Z88.5 Allergy status to narcotic agent; Z88.8 Allergy status to other drugs, medicaments and biological substances
CPT/HCPCS: 96360; 99283; J7030

== ENCOUNTER 2018-06-06 15:57 | Emergency (ER) | payer OTHER, BC ==
--- OUTSIDE RECORDS SUMMARY | 2018-06-06 16:00 | XMS REPORT | Clinical Summary ---
:1975 Author Organization [facility] Address [address] [place] [address] Care Team Providers Name Role Phone Marcio [...] upper quadrant pain Yaya Anderson DO after 06/05/2017 Social History Tobacco Use Types Packs/Day Years [...] procedure are in the results section. after 06/05/2017 Results MRI Pelvis W Wo Contrast (10/24/2017 [...] participate in the care of your patient. [facility]-[id number] Procedure Note Hm Interface, Radiology Results Incoming [...] participate in the care of your patient. [facility]-[id number] Performing Organization Address City/State/Zipcode Phone Number [facility] [address] [place] [address] MRI Abdomen W Wo Contrast (10/24/2017 1:37 [...] participate in the care of your patient. [facility]-[id number] Procedure Note Interface, Radiology Results Incoming - [...] participate in the care of your patient. [id number] Performing Organization Address City/State/Zipcode Phone Number [facility] [address] [place] [address] Estimated GFR (08/27/2017 4:58 AM CDT)Only the most recent of3 resultswithin the time period is included. GFR Non Af Amer 69 mL/min/1.73 m2 [facility] DEPARTMENT OF PATHOLOGY AND GENOMIC MEDICINE GFR Af Amer 84 mL/min/1.73 m2 [facility] DEPARTMENT OF Comment: PATHOLOGY AND GENOMIC [...] specimen Performing Organization Address City/State/Zipcode Phone Number [facility] DEPARTMENT OF PATHOLOGY AND [address] [place] [address] [facility] CBC with platelet and differential (08/27/2017 4:58 AM CDT)Only the most recent of3 resultswithin the time period is included. WBC 3.11 (L) 4.50 - 11.00 k/uL [facility] DEPARTMENT OF PATHOLOGY AND GENOMIC MEDICINE RBC 3.77 (L) 4.20 - 5.50 m/uL [facility] DEPARTMENT OF PATHOLOGY AND GENOMIC MEDICINE HGB 11.6 (L) 12.0 - 16.0 g/dL [facility] DEPARTMENT OF PATHOLOGY AND GENOMIC MEDICINE HCT 33.9 (L) 37.0 - 47.0 % [facility] DEPARTMENT OF PATHOLOGY AND GENOMIC MEDICINE MCV 89.9 82.0 - 100.0 fL [facility] DEPARTMENT OF PATHOLOGY AND GENOMIC MEDICINE MCH 30.8 27.0 - 34.0 pg [facility] DEPARTMENT OF PATHOLOGY AND GENOMIC MEDICINE MCHC 34.2 31.0 - 37.0 g/dL [facility] DEPARTMENT OF PATHOLOGY AND GENOMIC MEDICINE RDW - SD 40.7 37.0 - 55.0 fL [facility] DEPARTMENT OF PATHOLOGY AND GENOMIC MEDICINE MPV 12.7 8.8 - 13.2 fL [facility] DEPARTMENT OF PATHOLOGY AND GENOMIC MEDICINE Platelet count 176 150 - 400 k/uL [facility] DEPARTMENT OF PATHOLOGY AND GENOMIC MEDICINE Nucleated RBC 0.00 /100 WBC [facility] DEPARTMENT OF PATHOLOGY AND GENOMIC MEDICINE Neutrophils 40.7 39.0 - 69.0 % [facility] DEPARTMENT OF PATHOLOGY AND GENOMIC MEDICINE Lymphocytes 46.9 (H) 25.0 - 45.0 % [facility] DEPARTMENT OF PATHOLOGY AND GENOMIC MEDICINE Monocytes 8.0 0.0 - 10.0 % [facility] DEPARTMENT OF PATHOLOGY AND GENOMIC MEDICINE Eosinophils 3.5 0.0 - 5.0 % [facility] DEPARTMENT OF PATHOLOGY AND GENOMIC MEDICINE Basophils 0.6 0.0 - 1.0 % [facility] DEPARTMENT OF PATHOLOGY AND GENOMIC MEDICINE Immature granulocytes 0.3Comment: 0.0 - 1.0 % [facility] DEPARTMENT OF "Immature PATHOLOGY AND GENOMIC granulocytes" MEDICINE (promyelocytes, myelocytes, metamyelocytes) Specimen Blood Performing Organization Address City/State/Zipcode Phone Number [facility] DEPARTMENT OF PATHOLOGY AND [address] [place] [address] [facility] Basic metabolic panel (08/27/2017 4:58 AM CDT) Sodium 142 135 - 148 mEq/L [facility] DEPARTMENT OF PATHOLOGY AND GENOMIC MEDICINE Potassium 3.6 3.5 - 5.0 mEq/L [facility] DEPARTMENT OF PATHOLOGY AND GENOMIC MEDICINE Chloride 105 98 - 112 mEq/L [facility] DEPARTMENT OF PATHOLOGY AND GENOMIC MEDICINE CO2 26 24 - 31 mEq/L [facility] DEPARTMENT OF PATHOLOGY AND GENOMIC MEDICINE Anion gap 11@ANIO 7 - 15 mEq/L [facility] DEPARTMENT OF PATHOLOGY AND GENOMIC MEDICINE BUN 5 (L) 6 - 20 mg/dL [facility] DEPARTMENT OF PATHOLOGY AND GENOMIC MEDICINE Creatinine 0.9 0.5 - 0.9 mg/dL [facility] DEPARTMENT OF PATHOLOGY AND GENOMIC MEDICINE Glucose 91 65 - 99 mg/dL [facility] DEPARTMENT OF PATHOLOGY AND GENOMIC MEDICINE Calcium 9.3 8.3 - 10.2 mg/dL [facility] DEPARTMENT OF PATHOLOGY AND GENOMIC MEDICINE Specimen Plasma specimen Performing Organization Address City/[facility] Phone Number [facility] DEPARTMENT OF PATHOLOGY AND [address] [place] [phone] [facility] Urine drugs of abuse screen (08/26/2017 4:06 PM CDT) Amphetamine screen, urine Negative [facility] DEPARTMENT OF PATHOLOGY AND GENOMIC MEDICINE Barbiturate screen, urine Negative [facility] DEPARTMENT OF PATHOLOGY AND GENOMIC MEDICINE Benzodiazepine screen, Negative [facility] DEPARTMENT OF urine PATHOLOGY AND GENOMIC MEDICINE Cannabinoid screen, urine Negative [facility] DEPARTMENT OF PATHOLOGY AND GENOMIC MEDICINE Cocaine screen, urine Negative [facility] DEPARTMENT OF PATHOLOGY AND GENOMIC MEDICINE Methadone metabolite Negative [facility] DEPARTMENT OF (EDDP), urine PATHOLOGY AND GENOMIC MEDICINE Opiates screen, urine Negative [facility] DEPARTMENT OF PATHOLOGY AND GENOMIC MEDICINE Oxycodone screen, urine Negative [facility] DEPARTMENT OF PATHOLOGY AND GENOMIC MEDICINE Phencyclidine screen, urine Negative [facility] DEPARTMENT OF PATHOLOGY AND GENOMIC MEDICINE Tricyclic screen, urine Negative [facility] DEPARTMENT OF Comment: PATHOLOGY AND GENOMIC Drug screen minimum concentration of detectability MEDICINE Kdfniniietep3550 ng/mL Barbiturates 200 ng/mL Ohrfwkanotoffzc384 ng/mL Gqlrdgx662 ng/mL Mfmmmbwqn278 ng/mL Xakuzha915 ng/mL Jhgyyecoc473 ng/mL Phencyclidine 25 ng/mL Npihplvccnlk65 ng/mL Cuimptuhck1146 ng/mL Negative test results indicates presumptive evidence of lack of clinically significant drug concentration in this urine specimen. Positive test results are presumptive evidence of clinically significant drug concentration in this urine specimen. Testing performed for medical purposes only. Specimen Urine Performing Organization Address City/[facility] [place] [facility] Phone Number [facility] DEPARTMENT OF PATHOLOGY AND [address] [place] [phone] [facility] MEDICINE Sedimentation rate (08/26/2017 2:55 PM CDT) Sedimentation rate 16 0 - 20 mm/hr [facility] DEPARTMENT OF PATHOLOGY AND GENOMIC MEDICINE Specimen Blood Performing Organization Address City/[facility] Phone Number [facility] DEPARTMENT OF PATHOLOGY AND [address] [place] [phone] [facility] C-reactive protein (08/26/2017 2:55 PM CDT) CRP 0.46 0.00 - 0.50 mg/dL [facility] DEPARTMENT OF PATHOLOGY AND GENOMIC MEDICINE Specimen Plasma specimen Performing Organization Address City/[facility] [place] [facility] Phone Number [facility] DEPARTMENT OF PATHOLOGY AND [address] [place] [address] [facility] ECG 12 lead (08/26/2017 7:50 AM CDT) Ventricular rate 63 [facility] Atrial rate 63 [facility] VA interval 128 [facility] QRSD interval 86 [facility] QT interval 428 [facility] QTC interval 437 [facility] P axis 1 39 [facility] QRS axis 1 6 [facility] T wave axis 29 [facility] EKG impression Normal sinus rhythm-Normal ECG-No previous [facility] ECGs available- Performing Organization Address [facility] Phone Number [facility] [address] [place] [phone] Lactic acid level, SEPSIS - Now and repeat 2x every 3 hours (08/26/2017 5:15 AM CDT)Only the most recent of3 resultswithin the time period is included. Lactic acid 1.4 0.5 - 2.2 mmol/L [facility] DEPARTMENT OF PATHOLOGY AND GENOMIC MEDICINE Specimen Blood Performing Organization Address [facility] Phone Number [facility] DEPARTMENT OF PATHOLOGY AND [address] [place] [phone] [facility] Comprehensive metabolic panel (08/26/2017 5:15 AM CDT)Only the most recent of2 resultswithin the time period is included. Sodium 141 135 - 148 mEq/L [facility] DEPARTMENT OF PATHOLOGY AND GENOMIC MEDICINE Potassium 3.7 3.5 - 5.0 mEq/L [facility] DEPARTMENT OF PATHOLOGY AND GENOMIC MEDICINE Chloride 106 98 - 112 mEq/L [facility] DEPARTMENT OF PATHOLOGY AND GENOMIC MEDICINE CO2 25 24 - 31 mEq/L [facility] DEPARTMENT OF PATHOLOGY AND GENOMIC MEDICINE Anion gap 10@ANIO 7 - 15 mEq/L [facility] DEPARTMENT OF PATHOLOGY AND GENOMIC MEDICINE BUN 6 6 - 20 mg/dL [facility] DEPARTMENT OF PATHOLOGY AND GENOMIC MEDICINE Creatinine 0.8 0.5 - 0.9 mg/dL [facility] DEPARTMENT OF PATHOLOGY AND GENOMIC MEDICINE Glucose 86 65 - 99 mg/dL [facility] DEPARTMENT OF PATHOLOGY AND GENOMIC MEDICINE Calcium 8.4 8.3 - 10.2 mg/dL [facility] DEPARTMENT OF PATHOLOGY AND GENOMIC MEDICINE Protein 5.8 (L) 6.3 - 8.3 g/dL [facility] DEPARTMENT OF Comment: PATHOLOGY AND GENOMIC [place] 4.6-7.0 g/dL MEDICINE 1 week 4.4-7.6 g/dL 7 months-1year5.1-7.3 g/dL 1-2 years5.6-7.5 g/dL >3 years6.0-8.0 g/dL 18-150 6.3-8.3 g/dL Albumin 2.9 (L) 3.5 - 5.0 g/dL [facility] DEPARTMENT OF PATHOLOGY AND GENOMIC MEDICINE A/G ratio 1.0 0.7 - 3.8 [facility] DEPARTMENT OF PATHOLOGY AND GENOMIC MEDICINE Alkaline phosphatase 64 35 - 104 U/L [facility] DEPARTMENT OF PATHOLOGY AND GENOMIC MEDICINE AST 29 10 - 35 U/L [facility] DEPARTMENT OF PATHOLOGY AND GENOMIC MEDICINE ALT 13 5 - 50 U/L [facility] DEPARTMENT OF PATHOLOGY AND GENOMIC MEDICINE Total bilirubin <0.2 0.0 - 1.2 mg/dL [facility] DEPARTMENT OF PATHOLOGY AND GENOMIC MEDICINE Specimen Plasma specimen Performing Organization Address City/State/Zipcode Phone Number [facility] DEPARTMENT OF PATHOLOGY AND [address] [place] [address] [facility] [address] Abdomen Pelvis W Contrast (08/25/2017 11:58 [...] abnormality identified in the abdomen or pelvis. [facility]-[id number] Procedure Note [facility], Radiology Results Incoming - 08/26/2017 12:26 AM [...] abnormality identified in the abdomen or pelvis. [facility]-[id number] Performing Organization Address City/[facility] [place] [facility] Phone Number [facility] [address] [place] [phone] hCG qualitative, urine screen (08/25/2017 10:30 PM CDT) [facility] qualitative, urine NegativeComment: [facility] DEPARTMENT OF Sensitivity of HCG test: 25 PATHOLOGY AND GENOMIC mIU/mL MEDICINE Specimen Urine Performing Organization Address [facility] Phone Number [facility] DEPARTMENT OF PATHOLOGY AND [address] [place] [phone] [facility] MEDICINE Urinalysis screen and microscopy, with reflex to culture (08/25/2017 8:18 PM CDT) Specimen site Clean catch [facility] DEPARTMENT OF PATHOLOGY AND GENOMIC MEDICINE Color, UA Straw [facility] DEPARTMENT OF PATHOLOGY AND GENOMIC MEDICINE Appearance, UA Clear [facility] DEPARTMENT OF PATHOLOGY AND GENOMIC MEDICINE Specific gravity, UA 1.005 1.001 - 1.035 [facility] DEPARTMENT OF PATHOLOGY AND GENOMIC MEDICINE pH, UA 6.0 5.0 - 8.5 [facility] DEPARTMENT OF PATHOLOGY AND GENOMIC MEDICINE Protein, UA Negative Negative [facility] DEPARTMENT OF PATHOLOGY AND GENOMIC MEDICINE Glucose, UA Negative Negative [facility] DEPARTMENT OF PATHOLOGY AND GENOMIC MEDICINE Ketones, UA Negative Negative [facility] DEPARTMENT OF PATHOLOGY AND GENOMIC MEDICINE Bilirubin, UA Negative Negative [facility] DEPARTMENT OF PATHOLOGY AND GENOMIC MEDICINE Blood, UA Negative Negative [facility] DEPARTMENT OF PATHOLOGY AND GENOMIC MEDICINE Nitrite, UA Negative Negative [facility] DEPARTMENT OF PATHOLOGY AND GENOMIC MEDICINE Urobilinogen, UA <2.0 <2.0 [facility] DEPARTMENT OF PATHOLOGY AND GENOMIC MEDICINE Leukocyte esterase, UA Negative Negative [facility] DEPARTMENT OF PATHOLOGY AND GENOMIC MEDICINE Epithelial cells, UA <1 /HPF [facility] DEPARTMENT OF PATHOLOGY AND GENOMIC MEDICINE WBC, UA <1 0 - 4 /HPF [facility] DEPARTMENT OF PATHOLOGY AND GENOMIC MEDICINE RBC, UA <1 0 - 5 /HPF [facility] DEPARTMENT OF PATHOLOGY AND GENOMIC MEDICINE Bacteria, UA Few None seen [facility] DEPARTMENT OF PATHOLOGY AND GENOMIC MEDICINE Yeast, UA None seen [facility] DEPARTMENT OF PATHOLOGY AND GENOMIC MEDICINE Yeast with pseudohyphae, UA None seen [facility] DEPARTMENT OF PATHOLOGY AND GENOMIC MEDICINE Specimen Urine Performing Organization Address City/[facility] [place] [facility] Phone Number [facility] DEPARTMENT OF PATHOLOGY AND [address] [place] [address] GENOMIC MEDICINE Urine culture (08/25/2017 8:18 PM CDT) Urine culture SEE COMMENTComment: Bacteriuria [facility] DEPARTMENT OF PATHOLOGY screen negative. AND GENOMIC MEDICINE Performing Organization Address City/[facility] [place] [facility] Phone Number [facility] DEPARTMENT OF PATHOLOGY AND [address] [place] [address] GENOMIC MEDICINE Lipase level (08/25/2017 8:18 PM CDT) Lipase 19 13 - 60 U/L [facility] DEPARTMENT OF PATHOLOGY AND GENOMIC MEDICINE Specimen Plasma specimen Performing Organization Address [facility] [place] [facility] Phone Number [facility] DEPARTMENT OF PATHOLOGY AND [address] [place] [address] GENOMIC MEDICINE after 06/05/2017 Insurance Payer Benefit Plan / Group Subscriber ID Type Phone Address [employer] AETNA PPO OPEN CHOICE xxxxxxxxxx PPO [employer]/AETNA SIG ADMIN xxxxxxxxx PPO (Work) Advance Directives Patient has advance care planning documents on file. For more information, please contact:Jorje Akhtar[address] [place] [phone]
--- OUTSIDE RECORDS SUMMARY | 2018-06-06 16:01 | XMS REPORT | Clinical Summary ---
:1975 Author Organization [facility] Address [address] [place] [address] Care Team Providers Name Role Phone Suepalak [...] Janette Pan MD 03/17/2018 Surgery Gastroenterology Domingo Mcduffie, UPPER MD ENDOSCOPY,BIOPSY 03/17/2018 Travel 03/16/2018 [facility] General Internal Rashaun Balbuena Hypertension, unspecified type; - Encounter Medicine MD Vijaya Acute nonintractable headache, unspecified headache type; 03/24/2018 Intractable vomiting with nausea, unspecified vomiting type 03/16/2018 Orders Only Internal Medicine Rashaun Balbuena MD 03/08/2018 Emergency Emergency Medicine [place], Nausea and vomiting, intractability of vomiting not specified, unspecified vomiting type (Primary Dx) ; Kaiser Rosa MD Gastroparesis 03/08/2018 Travel 02/09/2018 Anesthesia Event Gastroenterology Naeem Aparicio MD 02/09/2018 Surgery Gastroenterology Domingo Mcduffie, UPPER ENDOSCOPY MD 02/09/2018 [facility] GastroenterDomingo Ordonez, Encounter 01/16/2018 Hospital Pre-Admission Testing Resource, [facility] Encounter Preadmit Phone 12/22/2017 Surgery Gastroenterology Aria, MOTILITY Clarence Copeland MD 12/22/2017 [facility] Gastroenterology Domingo Mcduffie, Encounter MD after 06/05/2017 Social History Tobacco Use Types [...] Taken Blood Pressure 113/70 03/24/2018 7:25 AM KITCHEN WORKER Pulse 75 03/24/2018 12:42 PM KITCHEN WORKER Temperature 36.1 C (97 F) 03/24/2018 7:25 AM KITCHEN WORKER Respiratory Rate 18 03/24/2018 12:42 PM KITCHEN WORKER Oxygen Saturation 97% 03/24/2018 12:42 PM KITCHEN WORKER Inhaled Oxygen Concentration 21% 03/22/2018 2:10 AM KITCHEN WORKER Weight 63.2 kg (139 lb 4.8 oz) 03/24/2018 6:00 AM KITCHEN WORKER Height 160 cm (5' 3") 03/16/2018 3:32 PM KITCHEN WORKER Body Mass Index 24.68 03/24/2018 6:00 AM KITCHEN WORKER Plan of Treatment Date Type Specialty Care Team Description 06/22/2018 Hospital Encounter Tray Escobar MD One [address] [address] 06/22/2018 Surgery Tray Escobar ROBOTIC MD LAPAROSCOPY,HERNIORRHAPHY [facility] HIATAL [address] [address] Procedures Procedure Name Priority Date/Time Associated Comments Diagnosis TRIGLYCERIDES STAT 03/24/2018 11:04 Results for this AM KITCHEN WORKER procedure are in the results section. PHOSPHORUS STAT 03/24/2018 11:04 Results for this AM KITCHEN WORKER procedure are in the results section. MAGNESIUM STAT 03/24/2018 11:04 Results for this AM KITCHEN WORKER procedure are in the results section. BASIC METABOLIC PANEL STAT 03/24/2018 11:04 Results for this (7) AM KITCHEN WORKER procedure are in the results section. TRIGLYCERIDES Routine 03/23/2018 4:39 Results for this PM KITCHEN WORKER procedure are in the results section. XR CHEST 1 VIEW STAT 03/23/2018 12:49 Results for this PORTABLE/BEDSIDE PM KITCHEN WORKER procedure are in the results section. CBC W/PLT COUNT & Routine 03/23/2018 6:34 Results for this AUTO DIFFERENTIAL AM KITCHEN WORKER procedure are in the results section. PHOSPHORUS Routine 03/23/2018 6:34 Results for this AM KITCHEN WORKER procedure are in the results section. MAGNESIUM Routine 03/23/2018 6:34 Results for this AM KITCHEN WORKER procedure are in the results section. BASIC METABOLIC PANEL Routine 03/23/2018 6:34 Results for this (7) AM KITCHEN WORKER procedure are in the results section. CBC W/PLT COUNT & Routine 03/23/2018 6:34 Results for this AUTO DIFFERENTIAL AM KITCHEN WORKER procedure are in the results section. CBC W/PLT COUNT & Routine 03/22/2018 5:06 Results for this AUTO DIFFERENTIAL AM KITCHEN WORKER procedure are in the results section. PHOSPHORUS Routine 03/22/2018 5:06 Results for this AM KITCHEN WORKER procedure are in the results section. MAGNESIUM Routine 03/22/2018 5:06 Results for this AM KITCHEN WORKER procedure are in the results section. BASIC METABOLIC PANEL Routine 03/22/2018 5:06 Results for this (7) AM KITCHEN WORKER procedure are in the results section. CBC W/PLT COUNT & Routine 03/22/2018 5:06 Results for this AUTO DIFFERENTIAL AM KITCHEN WORKER procedure are in the results section. CBC W/PLT COUNT & Routine 03/21/2018 5:35 Results for this AUTO DIFFERENTIAL AM KITCHEN WORKER procedure are in the results section. CBC W/PLT COUNT & Routine 03/21/2018 5:35 Results for this AUTO DIFFERENTIAL AM KITCHEN WORKER procedure are in the results section. PHOSPHORUS Routine 03/21/2018 5:34 Results for this AM KITCHEN WORKER procedure are in the results section. MAGNESIUM Routine 03/21/2018 5:34 Results for this AM KITCHEN WORKER procedure are in the results section. BASIC METABOLIC PANEL Routine 03/21/2018 5:34 Results for this (7) AM KITCHEN WORKER procedure are in the results section. MR MRA ABDOMEN WITH Routine 03/20/2018 9:33 Results for this AND WITHOUT CONTRAST AM KITCHEN WORKER procedure are in the results section. CBC W/PLT COUNT & Routine 03/20/2018 8:50 Results for this AUTO DIFFERENTIAL AM KITCHEN WORKER procedure are in the results section. PREALBUMIN Routine 03/20/2018 8:50 Results for this AM KITCHEN WORKER procedure are in the results section. BASIC METABOLIC PANEL Routine 03/20/2018 8:50 Results for this (7) AM KITCHEN WORKER procedure are in the results section. PHOSPHORUS Routine 03/20/2018 8:50 Results for this AM KITCHEN WORKER procedure are in the results section. MAGNESIUM Routine 03/20/2018 8:50 Results for this AM KITCHEN WORKER procedure are in the results section. CBC W/PLT COUNT & Routine 03/20/2018 8:50 Results for this AUTO DIFFERENTIAL AM KITCHEN WORKER procedure are in the results section. CT BRAIN WITHOUT IV Routine 03/19/2018 7:02 Results for this CONTRAST PM KITCHEN WORKER procedure are in the results section. MR BRAIN WITHOUT IV Routine 03/18/2018 10:10 Results for this CONTRAST AM KITCHEN WORKER procedure are in the results section. CBC W/PLT COUNT & STAT 03/18/2018 3:58 Results for this AUTO DIFFERENTIAL AM KITCHEN WORKER procedure are in the results section. COMPREHENSIVE STAT 03/18/2018 3:58 Results for this METABOLIC PANEL AM KITCHEN WORKER procedure are in the results section. LACTIC ACID, VENOUS STAT 03/18/2018 3:58 Results for this AM KITCHEN WORKER procedure are in the results section. CBC W/PLT COUNT & STAT 03/18/2018 3:58 Results for this AUTO DIFFERENTIAL AM KITCHEN WORKER procedure are in the results section. POCT-GLUCOSE METER Routine 03/18/2018 2:56 Results for this AM KITCHEN WORKER procedure are in the results section. REPORT OF PROCEDURE - 03/17/2018 3:42 ENDOSCOPY URL PM KITCHEN WORKER TISSUE EXAM AP Routine 03/17/2018 3:39 Results for this PM KITCHEN WORKER procedure are in the results section. UPPER 03/17/2018 3:15 Abdominal pain, ENDOSCOPY,BIOPSY PM KITCHEN WORKER unspecified abdominal location Special Needs egd w/ anes CBC W/PLT COUNT & Routine 03/16/2018 4:57 Results for this AUTO DIFFERENTIAL PM KITCHEN WORKER procedure are in the results section. TSH/FREE T4 IF Routine 03/16/2018 4:57 Results for this INDICATED PM KITCHEN WORKER procedure are in the results section. HEPATIC FUNCTION Routine 03/16/2018 4:57 Results for this PANEL PM KITCHEN WORKER procedure are in the results section. LIPASE Routine 03/16/2018 4:57 Results for this PM KITCHEN WORKER procedure are in the results section. AMYLASE Routine 03/16/2018 4:57 Results for this PM KITCHEN WORKER procedure are in the results section. PHOSPHORUS Routine 03/16/2018 4:57 Results for this PM KITCHEN WORKER procedure are in the results section. MAGNESIUM Routine 03/16/2018 4:57 Results for this PM KITCHEN WORKER procedure are in the results section. CBC W/PLT COUNT & Routine 03/16/2018 4:57 Results for this AUTO DIFFERENTIAL PM KITCHEN WORKER procedure are in the results section. BASIC METABOLIC Routine 03/16/2018 4:57 Results for this PANEL (7) PM KITCHEN WORKER procedure are in the results section. URINALYSIS W/ REFLEX STAT 03/08/2018 8:40 Results for this URINE CULTURE PM KITCHEN WORKER procedure are in the results section. SCREEN, STAT 03/08/2018 8:40 Results for this URINE PM KITCHEN WORKER procedure are in the results section. CBC W/PLT COUNT & STAT 03/08/2018 6:59 Results for this AUTO DIFFERENTIAL PM KITCHEN WORKER procedure are in the results section. LIPASE STAT 03/08/2018 6:59 Results for this PM KITCHEN WORKER procedure are in the results section. HEPATIC FUNCTION STAT 03/08/2018 6:59 Results for this PANEL PM KITCHEN WORKER procedure are in the results section. BASIC METABOLIC STAT 03/08/2018 6:59 Results for this PANEL (7) PM KITCHEN WORKER procedure are in the results section. PT/APTT STAT 03/08/2018 6:59 Results for this PM KITCHEN WORKER procedure are in the results section. CBC W/PLT COUNT & STAT 03/08/2018 6:59 Results for this AUTO DIFFERENTIAL PM KITCHEN WORKER procedure are in the results section. REPORT OF PROCEDURE 02/13/2018 2:14 - ENDOSCOPY URL PM KITCHEN WORKER UPPER ENDOSCOPY 02/09/2018 2:00 Gastroesophageal reflux PM KITCHEN WORKER disease, esophagitis presence not specified Gastroparesis Special Needs (BOTOX) MOTILITY 12/22/2017 2:00 PM CDT Gastroesophageal reflux disease without esophagitis Special Needs MOTILITY [731] after 06/05/2017 Results Triglycerides (03/24/2018 11:04 AM KITCHEN WORKER)Only the most recent of2 resultswithin the time period is included. Triglycerides 186 mg/dL [facility] Specimen Blood Narrative Performed At TRIGLYCERIDE REFERENCE RANGE [facility] Low Risk<150 Borderline Risk 150-199 High [id number] Very High Risk >=500 Performing Organization Address [facility] Phone Number [address] [address] [phone] CENTER Phosphorus (03/24/2018 11:04 AM KITCHEN WORKER)Only the most recent of6 resultswithin the time period is included. Phosphorus 3.7 2.3 - 4.7 mg/dL [facility] Specimen Blood Performing Organization Address [facility] Hospitalcode Phone Number [address] [address] [phone] CENTER Magnesium (03/24/2018 11:04 AM KITCHEN WORKER)Only the most recent of6 resultswithin the time period is included. Magnesium 2.5 1.6 - 2.6 mg/dL [facility] Specimen Blood Performing Organization Address City/[facility] Hospitalcode Phone Number [place] [phone] [place], [place] [phone] [place] Basic Metabolic Panel (03/24/2018 11:04 AM KITCHEN WORKER)Only the most recent of7 resultswithin the time period is included. Sodium 142 136 - 145 meq/L [facility] Potassium 4.3 3.5 - 5.1 meq/L [facility] Chloride 107 98 - 107 meq/L [facility] CO2 27 22 - 29 meq/L [facility] BUN 17 7 - 21 mg/dL [facility] Creatinine 0.73 0.57 - 1.25 mg/dL [facility] Glucose 71 70 - 105 mg/dL [facility] Calcium 9.7 8.4 - 10.2 mg/dL [facility] EGFR 88Comment: ESTIMATED GFR IS mL/min/1.73 sq m [facility] NOT ACCURATE CREATININE [facility] CLEARANCE IN PREDICTING GLOMERULAR FILTRATION RATE. ESTIMATED GFR IS NOT APPLICABLE FOR DIALYSIS PATIENTS. Specimen Blood Performing Organization Address City/[facility] Hospitalcode Phone Number [place] [phone] [place], [place] [phone] [place] XR chest 1 view portable / bedside (03/23/2018 12:49 PM KITCHEN WORKER) Narrative Performed At FINAL REPORT [facility] TECHNIQUE: Frontal chest radiograph dated 03/23/2018. CLINICAL HISTORY: PICC verification COMPARISON STUDY: None IMPRESSION: Right-sided PICC is seen with the tip projected over the superior vena cava near the right atrial junction. Lungs are clear. No pleural effusion or pneumothorax. Cardiomediastinal silhouette is normal in size. No pulmonary edema. No fracture. Signed: Roni Morocho MD Report Verified Date/Time:03/23/2018 13:56:32 Reading Location: [facility] Radiology Reading Room Procedure Note Interface, External Ris In - 03/23/2018 1:58 PM KITCHEN WORKER FINAL REPORT TECHNIQUE: Frontal chest radiograph dated 03/23/2018. CLINICAL HISTORY: PICC verification COMPARISON STUDY: None IMPRESSION: Right-sided PICC is seen with the tip projected over the superior vena cava near the right atrial junction. Lungs are clear. No pleural effusion or pneumothorax. Cardiomediastinal silhouette is normal in size. No pulmonary edema. No fracture. Signed: Roni Morocho MD Report Verified Date/Time: 03/23/2018 13:56:32 Reading Location: [facility] Radiology Reading Room Performing Organization Address City/State/Zipcode Phone Number [facility] CBC with platelet count + automated diff (03/23/2018 6:34 AM KITCHEN WORKER)Only the most recent of7 resultswithin the time period is included. WBC 3.7 3.5 - 10.5 K/L [facility] RBC 4.26 3.93 - 5.22 M/L [facility] Hemoglobin 12.9 11.2 - 15.7 GM/DL [facility] Hematocrit 36.8 34.1 - 44.9 % [facility] MCV 86.4 79.4 - 94.8 fL [facility] MCH 30.3 25.6 - 32.2 pg [facility] MCHC 35.1 32.2 - 35.5 GM/DL [facility] RDW 11.9 11.7 - 14.4 % [facility] Platelets 203 150 - 450 K/CU MM [facility] MPV 12.1 9.4 - 12.3 fL [facility] nRBC 0 0 - 0 /100 WBC [facility] % Neutros 40 % [facility] % Lymphs 45 % [facility] % Monos 10 % [facility] % Eos 4 % [facility] % Baso 1 % [facility] # Neutros 1.47 (L) 1.56 - 6.13 K/L [facility] # Lymphs 1.68 1.18 - 3.74 K/L [facility] # Monos 0.37 (H) 0.24 - 0.36 K/L [facility] # Eos 0.14 0.04 - 0.36 K/L [facility] # Baso 0.03 0.01 - 0.08 K/L [facility] Immature Granulocytes-Relative 0 0 - 1 % [facility] Specimen Blood - Arm, Left Performing Organization Address City/State/Zipcode Phone Number [facility] [address] [place] [address] [phone] CENTER MRA abdomen without & with IV contrast (03/20/2018 9:33 AM KITCHEN WORKER) Narrative Performed At FINAL REPORT [employer] [facility] MRA of the abdominal aorta and mesenteric [...] MD Report Verified Date/Time:03/20/2018 15:44:37 Reading Location: [place] [address] Cardiology MRI Procedure Note Interface, External Ris In - 03/20/2018 3:46 PM KITCHEN WORKER FINAL REPORT MRA of the abdominal aorta [...] Report Verified Date/Time: 03/20/2018 15:44:37 Reading Location: [facility] P047 Cardiology MRI Performing Organization Address City/State/Zipcode Phone Number [facility]IS Prealbumin (03/20/2018 8:50 AM KITCHEN WORKER) Prealbumin 23Comment: Specimen slightly 14 - 45 mg/dL [facility] hemolyzed [facility]ICAL [facility]ENTER Specimen Blood - Arm, Right Performing Organization Address City/State/Zipcode Phone Number [facility] MEDICAL [address] [place] [address] brain without IV contrast (03/19/2018 7:02 PM KITCHEN WORKER) Narrative Performed At FINAL REPORT [facility] CT, BRAIN, WITHOUT CONTRAST CLINICAL INDICATION:Headache, [...] MD Report Verified Date/Time:03/19/2018 19:46:18 Reading Location: [address] Neuro Reading Room Procedure Note Interface, External Ris In - 03/19/2018 7:48 PM KITCHEN WORKER FINAL REPORT CT, BRAIN, WITHOUT CONTRAST CLINICAL [...] Report Verified Date/Time: 03/19/2018 19:46:18 Reading Location: [address] Neuro Reading Room Performing Organization Address City/State/Zipcode Phone Number [employer] RIS MR brain without IV contrast (03/18/2018 10:10 AM KITCHEN WORKER) Narrative Performed At FINAL REPORT [facility] MRI brain without contrast 03/18/2018 10:35 AM [...] MD Report Verified Date/Time:03/18/2018 10:37:43 Reading Location: [address] Neuro Reading Room Procedure Note Interface, External Ris In - 03/18/2018 11:49 AM KITCHEN WORKER FINAL REPORT MRI brain without contrast 03/18/2018 [...] Report Verified Date/Time: 03/18/2018 10:37:43 Reading Location: [facility] B1 C013V Neuro Reading Room Performing Organization Address City/[facility] Phone Number RIS Lactic acid, venous, whole blood (03/18/2018 3:58 AM KITCHEN WORKER) Lactate, Venous 1.2 0.5 - 2.2 mmol/L [facility] Specimen Blood Performing Organization Address City/[facility] Phone Number [place] [phone] CENTER Comprehensive metabolic panel (03/18/2018 3:58 AM KITCHEN WORKER) Protein, Total 6.1 6.0 - 8.3 gm/dL [facility] Albumin 3.6 3.5 - 5.0 g/dL [facility] Alkaline Phosphatase 65 40 - 150 U/L [facility] Total Bilirubin 0.4 0.2 - 1.2 mg/dL [facility] Sodium 141 136 - 145 meq/L [facility] Potassium 3.9 3.5 - 5.1 meq/L [facility] Chloride 107 98 - 107 meq/L [facility] CO2 25 22 - 29 meq/L [facility] BUN 11 7 - 21 mg/dL [facility] Creatinine 0.72 0.57 - 1.25 mg/dL [facility] Glucose 89 70 - 105 mg/dL [facility] Calcium 9.5 8.4 - 10.2 mg/dL [facility] AST 13 5 - 34 U/L [facility] ALT 10 6 - 55 U/L [facility] EGFR 89Comment: ESTIMATED GFR mL/min/1.73 sq m [facility] IS NOT ACCURATE [facility] CREATININE CLEARANCE IN PREDICTING GLOMERULAR FILTRATION RATE. ESTIMATED GFR IS NOT APPLICABLE FOR DIALYSIS PATIENTS. Specimen Blood Performing Organization Address City/State/[facility] Phone Number [address] [address] CENTER POC-Glucose meter (03/18/2018 2:56 AM KITCHEN WORKER) POC-Glucose Meter 97Comment: TESTED AT 70 - 110 mg/dL [address] [address] Specimen Blood Performing Organization Address City/[facility] Phone Number [address] [address] [phone] [place] REPORT OF PROCEDURE - ENDOSCOPY URL (03/17/2018 3:42 PM KITCHEN WORKER) Narrative Performed At Tissue Exam (03/17/2018 3:39 PM KITCHEN WORKER) Case Report Surgical Pathology Report Case: [id number] [facility] Authorizing Provider:Domingo Mcduffie MDCollected: 03/17/2018 1539 [facility] Ordering Location: [address] Received: 03/20/2018 0848 Service Pathologist: Ish Tate MD Specimens: A) - Biopsy, Jejunum B) - Duodenum C) - Stomach DIAGNOSIS A. SMALL BOWEL, JEJUNUM, BIOPSY: [facility] - SMALL BOWEL MUCOSA WITH NO SIGNIFICANT PATHOLOGIC CHANGES [facility] - NEGATIVE FOR VILLOUS BLUNTING - NEGATIVE FOR SIGNIFICANT INCREASE OF INTRAEPITHELIAL LYMPHOCYTES B. DUODENUM, BIOPSY: - DUODENAL MUCOSA WITH NO SIGNIFICANT PATHOLOGIC CHANGES - NEGATIVE FOR VILLOUS BLUNTING - NEGATIVE FOR SIGNIFICANT INCREASE OF INTRAEPITHELIAL LYMPHOCYTES C. STOMACH, BIOPSY: - FEATURES SUGGESTIVE OF REACTIVE GASTROPATHY - NEGATIVE FOR H. PYLORI BY WARTHIN-STARRY STAIN Signing Pathologist Direct Phone Line: [phone] CPT Code(s) 11967 X 6, 30623 [facility] CLINICAL HISTORY Abdominal pain [facility] SPECIMEN SOURCE A. Jejunum biopsy. B. Duodenum. C. [facility] Stomach. [facility] GROSS DESCRIPTION Specimen is received in three containers of formalin all labeled with the patient's information. [facility] Specimen A: Labeled "jejunum biopsy" consists of [...] the use of immunohistochemistry or special stains. [facility] Immunohistochemistry technical testing was performed at [facility], Pathology Laboratory where it was developed and [...] Tissue - Biopsy, Jejunum Performing Organization Address City/[facility]/Zipcode Phone Number [place] [phone] [place] [address] CENTER TSH/Free T4 If Indicated (03/16/2018 4:57 PM KITCHEN WORKER) TSH 0.75 0.35 - 4.94 uIU/mL [facility] Specimen Blood - Antecubital, Left Performing Organization Address City/[facility]/Zipcode Phone Number [facility] [address] [address] [phone] CENTER Lipase (03/16/2018 4:57 PM KITCHEN WORKER)Only the most recent of2 resultswithin the time period is included. Lipase 36 8 - 78 U/L [facility] Specimen Blood - Antecubital, Left Performing Organization Address [facility] Hospitalcoky Phone Number [address] [address] [phone] [place] Amylase (03/16/2018 4:57 PM KITCHEN WORKER) Amylase 57Comment: Specimen slightly 25 - 125 U/L [facility] Specimen Blood - Antecubital, Left Performing Organization Address [facility] Phone Number [address] [address] [place] Hepatic function panel (03/16/2018 4:57 PM KITCHEN WORKER)Only the most recent of2 resultswithin the time period is included. Protein, Total 8.0Comment: Specimen 6.0 - 8.3 gm/dL [facility] Albumin 4.5Comment: Specimen 3.5 - 5.0 g/dL [facility] Total Bilirubin 0.2Comment: Specimen 0.2 - 1.2 mg/dL [facility] Bilirubin, Direct 0.1Comment: Specimen 0.1 - 0.5 mg/dL [facility] Alkaline Phosphatase 95 40 - 150 U/L [facility] AST 20Comment: Specimen 5 - 34 U/L [facility] ALT 13Comment: Specimen 6 - 55 U/L [facility] Specimen Blood - Antecubital, Left Performing Organization Address [facility]code Phone Number [address] [address] [place] Urinalysis w/Microscopic + Reflex to Culture (03/08/2018 8:40 PM KITCHEN WORKER) Color, UA Light Yellow [facility] Clarity, UA Clear [facility] Specific [place], UA 1.005 1.001 - 1.035 [facility] pH, UA 7.0 5.0 - 8.0 [facility] Protein, UA Negative Negative [facility] Glucose, UA Negative Negative [facility] Ketones, UA Negative Negative [facility] Bilirubin, UA Negative Negative [facility] Blood, UA Negative Negative [facility] Nitrite, UA Negative Negative [facility] Leukocytes, UA Negative Negative [facility] Urobilinogen, UA 0.2 0.2 - 1.0 mg/dL [facility] RBC, UA <1 /HPF [facility] [facility] WBC, UA 0 /HPF [facility] Squam Epithel, UA <1 /HPF [facility] Specimen Source [facility] Specimen Urine - Urine, Voided Performing Organization Address City/[facility]/Zipcode Phone Number [address] [address] [place] Screen, urine (03/08/2018 8:40 PM KITCHEN WORK[employer]) Preg Test, Ur Negative [facility] Specimen Urine - Urine, Voided Performing Organization Address City/[facility]/Zipcode Phone Number [address] [address] [place] PT/aPTT (03/08/2018 6:59 PM KITCHEN WORKER) Protime 13.0 11.7 - 14.7 seconds [facility] INR 1.0 <=5.9 [facility] PTT 33.4 22.5 - 36.0 seconds [facility] Specimen Blood - Arm, Right Narrative Performed At RECOMMENDED COUMADIN/WARFARIN INR THERAPY [facility] RANGES STANDARD DOSE: 2.0 - 3.0 Includes: PROPHYLAXIS for venous thrombosis, systemic embolization; TREATMENT for venous thrombosis and/or pulmonary embolus. HIGH RISK: Target INR is 2.5-3.5 for patients with mechanical heart valves. Performing Organization Address City/State/Zipcode Phone Number [facility] [address] [place] [address] CENTER REPORT OF PROCEDURE - ENDOSCOPY URL (02/13/2018 2:14 PM KITCHEN WORKER) Narrative Performed At after 06/05/2017 Insurance Payer Benefit Plan / Subscriber ID Type Phone Address Group [employer] - [employer] CARE [employer] SELECT US xxxxxxxxxx HMO/POS ACCESS BLUE CROSS/BLUE BCBS OS xxxxxxxxxxxx PPO [phone] [address] SHIELD POS/PPO/[place] [address] (Home) [place], [place] [phone] (Work) Advance Directives For more information, please contact:[facility] [place] [address] [phone] Code Status Date Activated Date Inactivated Comments Full Code 03/16/2018 3:52 PM This code status was determined by: Patient
--- OUTSIDE RECORDS SUMMARY | 2018-06-06 16:01 | XMS REPORT | Continuity of Care Document ---
[...] [facility] Absolute 0.0 0 - 0.[address] [facility] [address] Studies Basophils K/uL 2017 [facility] ([facility]) [place] Vital Signs Vital Sign Value Date Comments Source Temperature Oral (F) 97.3 F 06/08/[address] [facility] [address] [facility] [place] Heart Rate 72 06/08/[address] [facility] [address] [facility] [place] Respitory Rate 18 06/08/[address] [facility] [address] [facility] [place] Systolic (mm Hg) 120 06/08/[address] [facility] [address] [facility] [place] Diastolic (mm Hg) 75 06/08/[address] [facility] [address] [facility] [place] Height 64 06/06/[address] [facility] [address] [facility] [place] Weight 165.00 06/06/[address] [facility] [address] [facility] [place] Encounters Location Location Encounter Encounter Reason Attending ADM DC Status Source Details Type Number For Provider Date Date Visit [facility] Departed [id number] 06/08 06/[address] [facility] [address] [place] [facility] [id number] FAISAL 10 Active [facility] Kishan Outpatient [id number] FAISAL 01/03 Active [facility] Kishan Outpatient [id number] FAISAL 02/03 Active [facility] Kishan Procedures Procedure Code Date Perfomer Comments Source DIAGNOSTIC [id number] 06/08/[address] [facility] - [facility].. [place]
--- OUTSIDE RECORDS SUMMARY | 2018-06-06 16:02 | XMS REPORT ---
:1975 Author Organization [facility] Address [address] [place] [address] Care Team Providers Name Role Phone ERNESTO BENITEZ MARIA EUGENIA Unavailable Unavailable KALPANAOLGA NAS Unavailable Unavailable Problems This patient has no known problems. Allergies, Adverse Reactions, Alerts This patient has no known allergies or adverse reactions. Medications This patient has no known medications. Results Test Description Test Time Test Comments Text Results Atomic Results Result Comments TRIGLYCERIDES 2018-03-24 11:34:00 Test Item Value Reference Range Comments TRIGLYCERIDES (BEAKER) (test kvwg=994) 186 mg/dL TRIGLYCERIDE REFERENCE RANGELow Risk <150Borderline Risk 150-199High Risk 200-499Very High Risk>=[id number] 11:34:00 Test Item Value Reference Range Comments MAGNESIUM (BEAKER) (test slwf=002) 2.5 mg/dL 1.6-2.6 [id number] 11:34:00 Test Item Value Reference Range Comments PHOSPHORUS (BEAKER) (test ygzq=162) 3.7 mg/dL 2.3-4.7 BASIC METABOLIC [id number] 11:34:00 Test Item Value Reference Range Comments SODIUM (BEAKER) (test 142 meq/L 136-145 gevq=164) POTASSIUM (BEAKER) (test 4.3 meq/L 3.5-5.1 hrqr=880) CHLORIDE (BEAKER) (test 107 meq/L 98-107 kgbd=432) CO2 (BEAKER) (test 27 meq/L 22-29 wuct=928) BLOOD UREA NITROGEN 17 mg/dL 7-21 (BEAKER) (test mpzv=454) CREATININE (BEAKER) (test 0.73 mg/dL 0.57-1.25 cwts=838) GLUCOSE RANDOM (BEAKER) 71 mg/dL 70-105 (test pnae=949) CALCIUM (BEAKER) (test 9.7 mg/dL 8.4-10.2 gslh=613) EGFR (BEAKER) (test 88 mL/min/1.73 sq m ESTIMATED GFR IS NOT akbs=2204) ACCURATE CREATININE CLEARANCE IN PREDICTING GLOMERULAR FILTRATION RATE. ESTIMATED GFR IS NOT APPLICABLE FOR DIALYSIS PATIENTS. [id number] 17:36:00 Test Item Value Reference Range Comments TRIGLYCERIDES (BEAKER) (test rrid=444) 173 mg/dL TRIGLYCERIDE REFERENCE RANGELow Risk <150Borderline Risk 150-199High Risk 200-499Very High Risk>=500RAD, CHEST, 1 VIEW, NON [id number] 13:56: 00Reason for exam:->PICC LINE TIP VERIFICATIONShould [...] MDReport Verified Date/Time: 03/23/2018 13:56:32 Reading Location: [facility] Radiology Reading Room [id number] 07:25:00 Test Item Value Reference Range Comments PHOSPHORUS (BEAKER) (test lxod=987) 3.8 mg/dL 2.3-4.7 [id number] 07:25:00 Test Item Value Reference Range Comments MAGNESIUM (BEAKER) (test ccke=417) 2.1 mg/dL 1.6-2.6 BASIC METABOLIC [id number] 07:25:00 Test Item Value Reference Range Comments SODIUM (BEAKER) (test 141 meq/L 136-145 lnrr=788) POTASSIUM (BEAKER) (test 4.3 meq/L 3.5-5.1 tvkx=850) CHLORIDE (BEAKER) (test 107 meq/L 98-107 ejgn=511) CO2 (BEAKER) (test 28 meq/L 22-29 yjqd=381) BLOOD UREA NITROGEN 7 mg/dL 7-21 (BEAKER) (test ccmu=207) CREATININE (BEAKER) (test 0.77 mg/dL 0.57-1.25 ktzg=036) GLUCOSE RANDOM (BEAKER) 88 mg/dL 70-105 (test qhmm=302) CALCIUM (BEAKER) (test 9.3 mg/dL 8.4-10.2 aeda=398) EGFR (BEAKER) (test 83 mL/min/1.73 sq m ESTIMATED GFR IS NOT gnjx=2987) ACCURATE CREATININE CLEARANCE IN PREDICTING GLOMERULAR FILTRATION RATE. ESTIMATED GFR IS NOT APPLICABLE FOR DIALYSIS PATIENTS. CBC W/PLT COUNT & AUTO [id number] 07:03:00 Test Item Value Reference Range Comments WHITE BLOOD CELL COUNT (BEAKER) (test qzrm=335) 3.7 K/ L 3.5-10.5 RED BLOOD CELL COUNT (BEAKER) (test tivl=523) 4.26 M/ L 3.93-5.22 HEMOGLOBIN (BEAKER) (test mtth=263) 12.9 GM/DL 11.2-15.7 HEMATOCRIT (BEAKER) (test vkoo=341) 36.8 % 34.1-44.9 MEAN CORPUSCULAR VOLUME (BEAKER) (test xygc=021) 86.4 fL 79.4-94.8 MEAN CORPUSCULAR HEMOGLOBIN (BEAKER) (test 30.3 pg 25.6-32.2 yzla=550) MEAN CORPUSCULAR HEMOGLOBIN CONC (BEAKER) (test 35.1 GM/DL 32.2-35.5 yfdl=157) RED CELL DISTRIBUTION WIDTH (BEAKER) (test 11.9 % 11.7-14.4 aevs=272) PLATELET COUNT (BEAKER) (test pfit=202) 203 K/CU MM 150-450 MEAN PLATELET VOLUME (BEAKER) (test hpoq=402) 12.1 fL 9.4-12.3 NUCLEATED RED BLOOD CELLS (BEAKER) (test 0 /100 WBC 0-0 vylu=904) NEUTROPHILS RELATIVE PERCENT (BEAKER) (test 40 % vxjz=568) LYMPHOCYTES RELATIVE PERCENT (BEAKER) (test 45 % bvbc=799) MONOCYTES RELATIVE PERCENT (BEAKER) (test 10 % pqbn=780) EOSINOPHILS RELATIVE PERCENT (BEAKER) (test 4 % oghr=082) BASOPHILS RELATIVE PERCENT (BEAKER) (test 1 % qcko=153) NEUTROPHILS ABSOLUTE COUNT (BEAKER) (test 1.47 K/ L 1.56-6.13 nwih=086) LYMPHOCYTES ABSOLUTE COUNT (BEAKER) (test 1.68 K/ L 1.18-3.74 iimm=638) MONOCYTES ABSOLUTE COUNT (BEAKER) (test 0.37 K/ L 0.24-0.36 zbfv=844) EOSINOPHILS ABSOLUTE COUNT (BEAKER) (test 0.14 K/ L 0.04-0.36 jtsq=067) BASOPHILS ABSOLUTE COUNT (BEAKER) (test 0.03 K/ L 0.01-0.08 txqv=581) IMMATURE GRANULOCYTES-RELATIVE PERCENT (BEAKER) 0 % 0-1 (test psfq=5874) BASIC METABOLIC [id number] 08:49:00 Test Item Value Reference Range Comments SODIUM (BEAKER) (test 141 meq/L 136-145 sthc=511) POTASSIUM (BEAKER) (test 3.8 meq/L 3.5-5.1 fwfw=178) CHLORIDE (BEAKER) (test 109 meq/L 98-107 uihk=383) CO2 (BEAKER) (test 26 meq/L 22-29 ppir=767) BLOOD UREA NITROGEN 5 mg/dL 7-21 (BEAKER) (test aysv=640) CREATININE (BEAKER) (test 0.72 mg/dL 0.57-1.25 cadw=368) GLUCOSE RANDOM (BEAKER) 79 mg/dL 70-105 (test ieqv=026) CALCIUM (BEAKER) (test 8.9 mg/dL 8.4-10.2 kixy=344) EGFR (BEAKER) (test 89 mL/min/1.73 sq m ESTIMATED GFR IS NOT zmxm=8987) ACCURATE CREATININE CLEARANCE IN PREDICTING GLOMERULAR FILTRATION RATE. ESTIMATED GFR IS NOT APPLICABLE FOR DIALYSIS PATIENTS. [id number] 08:46:00 Test Item Value Reference Range Comments PHOSPHORUS (BEAKER) (test ksfz=026) 3.6 mg/dL 2.3-4.7 [id number] 08:46:00 Test Item Value Reference Range Comments MAGNESIUM (BEAKER) (test phwp=634) 1.8 mg/dL 1.6-2.6 CBC W/PLT COUNT & AUTO [id number] 08:39:00 Test Item Value Reference Range Comments WHITE BLOOD CELL COUNT (BEAKER) (test uzzf=186) 3.5 K/ L 3.5-10.5 RED BLOOD CELL COUNT (BEAKER) (test wxes=905) 4.02 M/ L 3.93-5.22 HEMOGLOBIN (BEAKER) (test unxi=782) 11.7 GM/DL 11.2-15.7 HEMATOCRIT (BEAKER) (test ngfh=469) 34.9 % 34.1-44.9 MEAN CORPUSCULAR VOLUME (BEAKER) (test fxnq=193) 86.8 fL 79.4-94.8 MEAN CORPUSCULAR HEMOGLOBIN (BEAKER) (test 29.1 pg 25.6-32.2 hipt=424) MEAN CORPUSCULAR HEMOGLOBIN CONC (BEAKER) (test 33.5 GM/DL 32.2-35.5 apwa=818) RED CELL DISTRIBUTION WIDTH (BEAKER) (test 11.9 % 11.7-14.4 cqax=465) PLATELET COUNT (BEAKER) (test bxjw=753) 180 K/CU MM 150-450 MEAN PLATELET VOLUME (BEAKER) (test zibt=131) 12.7 fL 9.4-12.3 NUCLEATED RED BLOOD CELLS (BEAKER) (test 0 /100 WBC 0-0 sldv=486) NEUTROPHILS RELATIVE PERCENT (BEAKER) (test 33 % khhr=527) LYMPHOCYTES RELATIVE PERCENT (BEAKER) (test 52 % muzw=897) MONOCYTES RELATIVE PERCENT (BEAKER) (test 9 % grqn=047) EOSINOPHILS RELATIVE PERCENT (BEAKER) (test 5 % ogyg=008) BASOPHILS RELATIVE PERCENT (BEAKER) (test 1 % ghhr=560) NEUTROPHILS ABSOLUTE COUNT (BEAKER) (test 1.13 K/ L 1.56-6.13 enqo=622) LYMPHOCYTES ABSOLUTE COUNT (BEAKER) (test 1.79 K/ L 1.18-3.74 hcgl=988) MONOCYTES ABSOLUTE COUNT (BEAKER) (test 0.31 K/ L 0.24-0.36 grgm=353) EOSINOPHILS ABSOLUTE COUNT (BEAKER) (test 0.18 K/ L 0.04-0.36 pnsn=250) BASOPHILS ABSOLUTE COUNT (BEAKER) (test 0.03 K/ L 0.01-0.08 dulu=523) IMMATURE GRANULOCYTES-RELATIVE PERCENT (BEAKER) 0 % 0-1 (test yqyk=8682) TISSUE [id number] 12:27:00Surgical Pathology Report Case: [id number] Authorizing Provider: Domingo Mcduffie MD Collected: 03/17/2018 1539 Ordering Location: [address] Received: 03/20/2018 0848 Service Pathologist: Ish [...] WARTHIN-STARRY STAIN Signing Pathologist Direct Phone Line: [phone] signed by Ish Tate MD on 2018 at 12:27 [id number] X 3, [id number] pain A. Jejunum biopsy. B. Duodenum. C. [...] stains. WARTHIN-STARRYImmunohistochemistry technical testing was performed at [facility], Pathology Laboratory where it was [...] qualified to perform high complexity clinical laboratory testing.[id number] 06:18: 00 Test Item Value Reference Range Comments PHOSPHORUS (BEAKER) (test iiwp=104) 3.6 mg/dL 2.3-4.7 [id number] 06:18:00 Test Item Value Reference Range Comments MAGNESIUM (BEAKER) (test meok=410) 1.8 mg/dL 1.6-2.6 BASIC METABOLIC [id number] 06:18:00 Test Item Value Reference Range Comments SODIUM (BEAKER) (test 140 meq/L 136-145 txso=225) POTASSIUM (BEAKER) (test 4.0 meq/L 3.5-5.1 kpuw=165) CHLORIDE (BEAKER) (test 109 meq/L 98-107 oubb=140) CO2 (BEAKER) (test 26 meq/L 22-29 oxgd=383) BLOOD UREA NITROGEN 7 mg/dL 7-21 (BEAKER) (test eoeh=687) CREATININE (BEAKER) (test 0.71 mg/dL 0.57-1.25 bjqp=200) GLUCOSE RANDOM (BEAKER) 94 mg/dL 70-105 (test coii=820) CALCIUM (BEAKER) (test 8.8 mg/dL 8.4-10.2 gxje=871) EGFR (BEAKER) (test 91 mL/min/1.73 sq m ESTIMATED GFR IS NOT etcm=8858) ACCURATE CREATININE CLEARANCE IN PREDICTING GLOMERULAR FILTRATION RATE. ESTIMATED GFR IS NOT APPLICABLE FOR DIALYSIS PATIENTS. CBC W/PLT COUNT & AUTO [id number] 06:14:00 Test Item Value Reference Range Comments WHITE BLOOD CELL COUNT (BEAKER) (test vtkb=741) 3.4 K/ L 3.5-10.5 RED BLOOD CELL COUNT (BEAKER) (test koei=167) 4.01 M/ L 3.93-5.22 HEMOGLOBIN (BEAKER) (test bori=296) 11.7 GM/DL 11.2-15.7 HEMATOCRIT (BEAKER) (test jlxh=918) 34.2 % 34.1-44.9 MEAN CORPUSCULAR VOLUME (BEAKER) (test rijn=392) 85.3 fL 79.4-94.8 MEAN CORPUSCULAR HEMOGLOBIN (BEAKER) (test 29.2 pg 25.6-32.2 auly=069) MEAN CORPUSCULAR HEMOGLOBIN CONC (BEAKER) (test 34.2 GM/DL 32.2-35.5 nohb=363) RED CELL DISTRIBUTION WIDTH (BEAKER) (test 11.6 % 11.7-14.4 gqox=178) PLATELET COUNT (BEAKER) (test ewct=089) 177 K/CU MM 150-450 MEAN PLATELET VOLUME (BEAKER) (test ouqv=973) 11.9 fL 9.4-12.3 NUCLEATED RED BLOOD CELLS (BEAKER) (test 0 /100 WBC 0-0 pbwm=989) NEUTROPHILS RELATIVE PERCENT (BEAKER) (test 33 % nqfb=205) LYMPHOCYTES RELATIVE PERCENT (BEAKER) (test 52 % mhtk=746) MONOCYTES RELATIVE PERCENT (BEAKER) (test 10 % pggj=590) EOSINOPHILS RELATIVE PERCENT (BEAKER) (test 4 % pysa=067) BASOPHILS RELATIVE PERCENT (BEAKER) (test 1 % acfk=016) NEUTROPHILS ABSOLUTE COUNT (BEAKER) (test 1.13 K/ L 1.56-6.13 badr=681) LYMPHOCYTES ABSOLUTE COUNT (BEAKER) (test 1.76 K/ L 1.18-3.74 kijt=843) MONOCYTES ABSOLUTE COUNT (BEAKER) (test 0.34 K/ L 0.24-0.36 zect=085) EOSINOPHILS ABSOLUTE COUNT (BEAKER) (test 0.13 K/ L 0.04-0.36 kkaq=938) BASOPHILS ABSOLUTE COUNT (BEAKER) (test 0.02 K/ L 0.01-0.08 mmmp=814) IMMATURE GRANULOCYTES-RELATIVE PERCENT (BEAKER) 0 % 0-1 (test hocv=6310) MR, MRA ABDOMEN, WITHOUT FOLLOW WITH [id number] 15:44:00FINAL REPORT MRA of the abdominal aorta and mesenteric arteries, March2018 INDICATION: This is a 42 with 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 suspected to be of renal vascular aetiology. This study is performed in an attempt toavoid an invasive procedure and potentially nephrotoxic contrast agent. This study is not optimised:Vinod Microlaunchersva MRI scan. Gradient echo images were performed [...] MDReport Verified Date/Time: 03/20/2018 15:44:37 Reading Location: [place] [address] Cardiology MRI [id number] 09:38:00 Test Item Value Reference Range Comments PREALBUMIN (BEAKER) (test 23 mg/dL 14-45 Specimen slightly hemolyzed oqto=299) [id number] 09:36:00 Test Item Value Reference Range Comments PHOSPHORUS (BEAKER) (test qpal=316) 3.2 mg/dL 2.3-4.7 [id number] 09:36:00 Test Item Value Reference Range Comments MAGNESIUM (BEAKER) (test crqy=684) 1.9 mg/dL 1.6-2.6 BASIC METABOLIC [id number] 09:36:00 Test Item Value Reference Range Comments SODIUM (BEAKER) (test 142 meq/L 136-145 idfz=886) POTASSIUM (BEAKER) (test 3.3 meq/L 3.5-5.1 cnrq=856) CHLORIDE (BEAKER) (test 102 meq/L 98-107 qbqp=871) CO2 (BEAKER) (test 28 meq/L 22-29 ekui=766) BLOOD UREA NITROGEN 9 mg/dL 7-21 (BEAKER) (test dudu=653) CREATININE (BEAKER) (test 0.83 mg/dL 0.57-1.25 lpxd=658) GLUCOSE RANDOM (BEAKER) 56 mg/dL 70-105 (test bmrd=906) CALCIUM (BEAKER) (test 9.8 mg/dL 8.4-10.2 jvlp=195) EGFR (BEAKER) (test 76 mL/min/1.73 sq m ESTIMATED GFR IS NOT mixs=1937) ACCURATE CREATININE CLEARANCE IN PREDICTING GLOMERULAR FILTRATION RATE. ESTIMATED GFR IS NOT APPLICABLE FOR DIALYSIS PATIENTS. CBC W/PLT COUNT & AUTO [id number] 09:14:00 Test Item Value Reference Range Comments WHITE BLOOD CELL COUNT (BEAKER) (test tkze=475) 5.4 K/ L 3.5-10.5 RED BLOOD CELL COUNT (BEAKER) (test qeva=541) 5.00 M/ L 3.93-5.22 HEMOGLOBIN (BEAKER) (test pffs=383) 14.5 GM/DL 11.2-15.7 HEMATOCRIT (BEAKER) (test lsxa=754) 42.8 % 34.1-44.9 MEAN CORPUSCULAR VOLUME (BEAKER) (test hgyi=257) 85.6 fL 79.4-94.8 MEAN CORPUSCULAR HEMOGLOBIN (BEAKER) (test 29.0 pg 25.6-32.2 lmgd=568) MEAN CORPUSCULAR HEMOGLOBIN CONC (BEAKER) (test 33.9 GM/DL 32.2-35.5 jrbc=072) RED CELL DISTRIBUTION WIDTH (BEAKER) (test 11.6 % 11.7-14.4 urzl=195) PLATELET COUNT (BEAKER) (test hrtl=040) 217 K/CU MM 150-450 MEAN PLATELET VOLUME (BEAKER) (test zjwc=640) 12.4 fL 9.4-12.3 NUCLEATED RED BLOOD CELLS (BEAKER) (test 0 /100 WBC 0-0 uare=651) NEUTROPHILS RELATIVE PERCENT (BEAKER) (test 60 % ryyi=536) LYMPHOCYTES RELATIVE PERCENT (BEAKER) (test 32 % swns=047) MONOCYTES RELATIVE PERCENT (BEAKER) (test 6 % xzuf=069) EOSINOPHILS RELATIVE PERCENT (BEAKER) (test 1 % nevi=137) BASOPHILS RELATIVE PERCENT (BEAKER) (test 1 % wlvz=184) NEUTROPHILS ABSOLUTE COUNT (BEAKER) (test 3.22 K/ L 1.56-6.13 odye=634) LYMPHOCYTES ABSOLUTE COUNT (BEAKER) (test 1.70 K/ L 1.18-3.74 mvee=812) MONOCYTES ABSOLUTE COUNT (BEAKER) (test 0.31 K/ L 0.24-0.36 ghua=600) EOSINOPHILS ABSOLUTE COUNT (BEAKER) (test 0.07 K/ L 0.04-0.36 yagt=588) BASOPHILS ABSOLUTE COUNT (BEAKER) (test 0.04 K/ L 0.01-0.08 flxn=798) IMMATURE GRANULOCYTES-RELATIVE PERCENT (BEAKER) 0 % 0-1 (test xfxa=1367) CT, BRAIN, WITHOUT [id number] 19:46:00FINAL REPORT CT, BRAIN, WITHOUT CONTRAST CLINICAL [...] Gaspar Verified Date/Time: 03/19/2018 19:46:18 Reading Location: [address] Neuro Reading Room MR, BRAIN, WITHOUT [id number] 10:37:00FINAL REPORT MRI brain without contrast [...] Tadeo Garcia Verified Date/Time: 10:37:43 Reading Location: [address] Neuro Reading Room COMPREHENSIVE METABOLIC [id number] 04:39:00 Test Item Value Reference Range Comments TOTAL PROTEIN (BEAKER) 6.1 gm/dL 6.0-8.3 (test vxap=086) ALBUMIN (BEAKER) (test 3.6 g/dL 3.5-5.0 mizm=3973) ALKALINE PHOSPHATASE 65 U/L 40-150 (BEAKER) (test jlib=270) BILIRUBIN TOTAL (BEAKER) 0.4 mg/dL 0.2-1.2 (test nkok=487) SODIUM (BEAKER) (test 141 meq/L 136-145 vrzz=007) POTASSIUM (BEAKER) (test 3.9 meq/L 3.5-5.1 cvsk=934) CHLORIDE (BEAKER) (test 107 meq/L 98-107 pmyt=840) CO2 (BEAKER) (test 25 meq/L 22-29 vhkg=648) BLOOD UREA NITROGEN 11 mg/dL 7-21 (BEAKER) (test ihia=798) CREATININE (BEAKER) (test 0.72 mg/dL 0.57-1.25 kqrd=872) GLUCOSE RANDOM (BEAKER) 89 mg/dL 70-105 (test ljxb=252) CALCIUM (BEAKER) (test 9.5 mg/dL 8.4-10.2 ypaq=009) AST (SGOT) (BEAKER) (test 13 U/L 5-34 jbti=411) ALT (SGPT) (BEAKER) (test 10 U/L 6-55 pqdh=222) EGFR (BEAKER) (test 89 mL/min/1.73 sq m ESTIMATED GFR IS NOT oxmz=2754) ACCURATE CREATININE CLEARANCE IN PREDICTING GLOMERULAR FILTRATION RATE. ESTIMATED GFR IS NOT APPLICABLE FOR DIALYSIS PATIENTS. LACTIC ACID, VENOUS, WHOLE [id number] 04:30:00 Test Item Value Reference Range Comments LACTATE BLOOD VENOUS (2) (BEAKER) (test 1.2 mmol/L 0.5-2.2 weyg=5534) CBC W/PLT COUNT & AUTO [id number] 04:18:00 Test Item Value Reference Range Comments WHITE BLOOD CELL COUNT (BEAKER) (test knxi=738) 5.1 K/ L 3.5-10.5 RED BLOOD CELL COUNT (BEAKER) (test ptiz=164) 4.38 M/ L 3.93-5.22 HEMOGLOBIN (BEAKER) (test fwrs=839) 12.7 GM/DL 11.2-15.7 HEMATOCRIT (BEAKER) (test qhal=923) 37.7 % 34.1-44.9 MEAN CORPUSCULAR VOLUME (BEAKER) (test odbg=107) 86.1 fL 79.4-94.8 MEAN CORPUSCULAR HEMOGLOBIN (BEAKER) (test 29.0 pg 25.6-32.2 wypd=021) MEAN CORPUSCULAR HEMOGLOBIN CONC (BEAKER) (test 33.7 GM/DL 32.2-35.5 mirf=460) RED CELL DISTRIBUTION WIDTH (BEAKER) (test 11.3 % 11.7-14.4 sjie=492) PLATELET COUNT (BEAKER) (test ssqm=448) 200 K/CU MM 150-450 MEAN PLATELET VOLUME (BEAKER) (test ozsj=760) 12.0 fL 9.4-12.3 NUCLEATED RED BLOOD CELLS (BEAKER) (test 0 /100 WBC 0-0 qojp=027) NEUTROPHILS RELATIVE PERCENT (BEAKER) (test 70 % eaou=839) LYMPHOCYTES RELATIVE PERCENT (BEAKER) (test 25 % hiej=759) MONOCYTES RELATIVE PERCENT (BEAKER) (test 5 % negk=525) EOSINOPHILS RELATIVE PERCENT (BEAKER) (test 0 % twgl=141) BASOPHILS RELATIVE PERCENT (BEAKER) (test 0 % vtrk=690) NEUTROPHILS ABSOLUTE COUNT (BEAKER) (test 3.55 K/ L 1.56-6.13 siyx=985) LYMPHOCYTES ABSOLUTE COUNT (BEAKER) (test 1.24 K/ L 1.18-3.74 sxre=005) MONOCYTES ABSOLUTE COUNT (BEAKER) (test 0.23 K/ L 0.24-0.36 phjg=888) EOSINOPHILS ABSOLUTE COUNT (BEAKER) (test 0.00 K/ L 0.04-0.36 oqyc=985) BASOPHILS ABSOLUTE COUNT (BEAKER) (test 0.02 K/ L 0.01-0.08 zwzt=521) IMMATURE GRANULOCYTES-RELATIVE PERCENT (BEAKER) 0 % 0-1 (test xmyg=4777) POCT-GLUCOSE [id number] 02:57:00 Test Item Value Reference Range Comments POC-GLUCOSE METER (BEAKER) 97 mg/dL 70-110 TESTED AT [facility] [address] [facility] (test wfxj=4504) [facility] [address] TSH/FREE T4 IF [id number] 17:54:00 Test Item Value Reference Range Comments THYROID STIMULATING HORMONE (BEAKER) (test 0.75 uIU/mL 0.35-4.94 qmav=637) [id number] 17:36:00 Test Item Value Reference Range Comments LIPASE (BEAKER) (test seld=924) 36 U/L 8-78 [id number] 17:36:00 Test Item Value Reference Range Comments AMYLASE (BEAKER) (test rzou=236) 57 U/L 25-125 Specimen slightly hemolyzed HEPATIC FUNCTION [id number] 17:36:00 Test Item Value Reference Range Comments TOTAL PROTEIN (BEAKER) (test 8.0 gm/dL 6.0-8.3 Specimen slightly hemolyzed sswg=921) ALBUMIN (BEAKER) (test 4.5 g/dL 3.5-5.0 Specimen slightly hemolyzed syon=9368) BILIRUBIN TOTAL (BEAKER) (test 0.2 mg/dL 0.2-1.2 Specimen slightly hemolyzed axkz=392) BILIRUBIN DIRECT (BEAKER) (test 0.1 mg/dL 0.1-0.5 Specimen slightly hemolyzed pnvo=039) ALKALINE PHOSPHATASE (BEAKER) 95 U/L 40-150 (test ypvj=403) AST (SGOT) (BEAKER) (test 20 U/L 5-34 Specimen slightly hemolyzed xtiu=395) ALT (SGPT) (BEAKER) (test 13 U/L 6-55 Specimen slightly hemolyzed ueqz=672) [id number] 17:35:00 Test Item Value Reference Range Comments MAGNESIUM (BEAKER) (test 2.2 mg/dL 1.6-2.6 Specimen slightly hemolyzed rqpf=328) [id number] 17:35:00 Test Item Value Reference Range Comments PHOSPHORUS (BEAKER) (test 3.4 mg/dL 2.3-4.7 Specimen slightly hemolyzed laci=554) BASIC METABOLIC [id number] 17:35:00 Test Item Value Reference Range Comments SODIUM (BEAKER) (test 141 meq/L 136-145 cqsp=921) POTASSIUM (BEAKER) (test 3.6 meq/L 3.5-5.1 Specimen slightly hbsv=006) hemolyzed CHLORIDE (BEAKER) (test 104 meq/L 98-107 whox=368) CO2 (BEAKER) (test 28 meq/L 22-29 ltbd=470) BLOOD UREA NITROGEN 9 mg/dL 7-21 (BEAKER) (test ylpk=310) CREATININE (BEAKER) (test 0.82 mg/dL 0.57-1.25 Specimen slightly bpgh=623) hemolyzed GLUCOSE RANDOM (BEAKER) 93 mg/dL 70-105 (test pele=449) CALCIUM (BEAKER) (test 10.0 mg/dL 8.4-10.2 nbsq=008) EGFR (BEAKER) (test 77 mL/min/1.73 sq m ESTIMATED GFR IS NOT wwzd=1571) ACCURATE CREATININE CLEARANCE IN PREDICTING GLOMERULAR FILTRATION RATE. ESTIMATED GFR IS NOT APPLICABLE FOR DIALYSIS PATIENTS. CBC W/PLT COUNT & AUTO [id number] 17:18:00 Test Item Value Reference Range Comments WHITE BLOOD CELL COUNT (BEAKER) (test miyv=518) 5.3 K/ L 3.5-10.5 RED BLOOD CELL COUNT (BEAKER) (test pbti=939) 4.76 M/ L 3.93-5.22 HEMOGLOBIN (BEAKER) (test anjr=031) 14.0 GM/DL 11.2-15.7 HEMATOCRIT (BEAKER) (test nljx=627) 41.5 % 34.1-44.9 MEAN CORPUSCULAR VOLUME (BEAKER) (test clso=210) 87.2 fL 79.4-94.8 MEAN CORPUSCULAR HEMOGLOBIN (BEAKER) (test 29.4 pg 25.6-32.2 jyon=777) MEAN CORPUSCULAR HEMOGLOBIN CONC (BEAKER) (test 33.7 GM/DL 32.2-35.5 spmb=494) RED CELL DISTRIBUTION WIDTH (BEAKER) (test 11.8 % 11.7-14.4 payd=822) PLATELET COUNT (BEAKER) (test iwtx=574) 219 K/CU MM 150-450 MEAN PLATELET VOLUME (BEAKER) (test ykkc=905) 12.4 fL 9.4-12.3 NUCLEATED RED BLOOD CELLS (BEAKER) (test 0 /100 WBC 0-0 nemv=096) NEUTROPHILS RELATIVE PERCENT (BEAKER) (test 49 % axsh=596) LYMPHOCYTES RELATIVE PERCENT (BEAKER) (test 42 % limr=872) MONOCYTES RELATIVE PERCENT (BEAKER) (test 6 % zoqt=642) EOSINOPHILS RELATIVE PERCENT (BEAKER) (test 2 % bukx=808) BASOPHILS RELATIVE PERCENT (BEAKER) (test 1 % dtuk=752) NEUTROPHILS ABSOLUTE COUNT (BEAKER) (test 2.61 K/ L 1.56-6.13 kwsi=170) LYMPHOCYTES ABSOLUTE COUNT (BEAKER) (test 2.23 K/ L 1.18-3.74 jelq=636) MONOCYTES ABSOLUTE COUNT (BEAKER) (test 0.30 K/ L 0.24-0.36 nnbr=932) EOSINOPHILS ABSOLUTE COUNT (BEAKER) (test 0.11 K/ L 0.04-0.36 damf=939) BASOPHILS ABSOLUTE COUNT (BEAKER) (test 0.04 K/ L 0.01-0.08 txvr=372) IMMATURE GRANULOCYTES-RELATIVE PERCENT (BEAKER) 0 % 0-1 (test tdmx=4941) URINALYSIS W/ REFLEX URINE [id number] 20:59:00 Test Item Value Reference Range Comments COLOR (BEAKER) (test qwst=380) Light Yellow CLARITY (BEAKER) (test ethj=657) Clear SPECIFIC GRAVITY UA (BEAKER) (test ielo=363) 1.005 1.001-1.035 PH UA (BEAKER) (test bkno=673) 7.0 5.0-8.0 PROTEIN UA (BEAKER) (test uwff=092) Negative Negative GLUCOSE UA (BEAKER) (test ezjy=152) Negative Negative KETONES UA (BEAKER) (test qloh=887) Negative Negative BILIRUBIN UA (BEAKER) (test akgy=738) Negative Negative BLOOD UA (BEAKER) (test nkak=779) Negative Negative NITRITE UA (BEAKER) (test vhku=653) Negative Negative LEUKOCYTE ESTERASE UA (BEAKER) (test weoa=022) Negative Negative UROBILINOGEN UA (BEAKER) (test jtav=728) 0.2 mg/dL 0.2-1.0 RBC UA (BEAKER) (test indy=912) < /HPF WBC UA (BEAKER) (test gqwh=019) 0 /HPF SQUAMOUS EPITHELIAL (BEAKER) (test qwph=810) < /HPF SOURCE(BEAKER) (test bier=2646) SCREEN, [id number] 20:57:00 Test Item Value Reference Range Comments TEST URINE (BEAKER) (test phyo=977) Negative [id number] 19:27:00 Test Item Value Reference Range Comments LIPASE (BEAKER) (test vmgd=884) 20 U/L 8-78 BASIC METABOLIC [id number] 19:27:00 Test Item Value Reference Range Comments SODIUM (BEAKER) (test 142 meq/L 136-145 dovo=828) POTASSIUM (BEAKER) (test 3.8 meq/L 3.5-5.1 vadb=832) CHLORIDE (BEAKER) (test 108 meq/L 98-107 jcdc=375) CO2 (BEAKER) (test 27 meq/L 22-29 suew=629) BLOOD UREA NITROGEN 10 mg/dL 7-21 (BEAKER) (test uwyf=942) CREATININE (BEAKER) (test 0.75 mg/dL 0.57-1.25 xzkv=712) GLUCOSE RANDOM (BEAKER) 103 mg/dL 70-105 (test odsp=852) CALCIUM (BEAKER) (test 9.1 mg/dL 8.4-10.2 xcaq=458) EGFR (BEAKER) (test 85 mL/min/1.73 sq m ESTIMATED GFR IS NOT kjvq=1122) ACCURATE CREATININE CLEARANCE IN PREDICTING GLOMERULAR FILTRATION RATE. ESTIMATED GFR IS NOT APPLICABLE FOR DIALYSIS PATIENTS. HEPATIC FUNCTION [id number] 19:27:00 Test Item Value Reference Range Comments TOTAL PROTEIN (BEAKER) (test spdh=281) 6.7 gm/dL 6.0-8.3 ALBUMIN (BEAKER) (test sojh=9509) 4.0 g/dL 3.5-5.0 BILIRUBIN TOTAL (BEAKER) (test xnnf=943) 0.3 mg/dL 0.2-1.2 BILIRUBIN DIRECT (BEAKER) (test nhtz=462) 0.1 mg/dL 0.1-0.5 ALKALINE PHOSPHATASE (BEAKER) (test lkps=359) 80 U/L 40-150 AST (SGOT) (BEAKER) (test blwv=297) 16 U/L 5-34 ALT (SGPT) (BEAKER) (test vdqg=339) 15 U/L 6-55 [id number] 19:26:00 Test Item Value Reference Range Comments PROTIME (BEAKER) (test syeu=272) 13.0 seconds 11.7-14.7 INR (BEAKER) (test ihsw=076) 1.0 <=5.9 PARTIAL THROMBOPLASTIN TIME (BEAKER) (test 33.4 seconds 22.5-36.0 mvhm=873) RECOMMENDED COUMADIN/WARFARIN INR THERAPY RANGESSTANDARD DOSE: 2.0 - 3.0 Includes: PROPHYLAXIS forvenous thrombosis, systemic embolization; TREATMENT for venous thrombosis and/or pulmonary embolus.HIGH RISK: Target INR is 2.5-3.5 for patients with mechanical heart valves.CBC W/PLT COUNT & AUTO [id number] 19:10:00 Test Item Value Reference Range Comments WHITE BLOOD CELL COUNT (BEAKER) (test fcbj=291) 4.8 K/ L 3.5-10.5 RED BLOOD CELL COUNT (BEAKER) (test cqth=489) 4.27 M/ L 3.93-5.22 HEMOGLOBIN (BEAKER) (test fzgx=305) 12.6 GM/DL 11.2-15.7 HEMATOCRIT (BEAKER) (test skng=858) 37.0 % 34.1-44.9 MEAN CORPUSCULAR VOLUME (BEAKER) (test gemx=170) 86.7 fL 79.4-94.8 MEAN CORPUSCULAR HEMOGLOBIN (BEAKER) (test 29.5 pg 25.6-32.2 nkff=943) MEAN CORPUSCULAR HEMOGLOBIN CONC (BEAKER) (test 34.1 GM/DL 32.2-35.5 rmbz=021) RED CELL DISTRIBUTION WIDTH (BEAKER) (test 11.9 % 11.7-14.4 jids=997) PLATELET COUNT (BEAKER) (test uzyu=507) 210 K/CU MM 150-450 MEAN PLATELET VOLUME (BEAKER) (test sokj=843) 12.1 fL 9.4-12.3 NUCLEATED RED BLOOD CELLS (BEAKER) (test 0 /100 WBC 0-0 apqi=385) NEUTROPHILS RELATIVE PERCENT (BEAKER) (test 41 % igfr=980) LYMPHOCYTES RELATIVE PERCENT (BEAKER) (test 47 % ckpp=927) MONOCYTES RELATIVE PERCENT (BEAKER) (test 9 % zzgf=820) EOSINOPHILS RELATIVE PERCENT (BEAKER) (test 2 % ptdz=610) BASOPHILS RELATIVE PERCENT (BEAKER) (test 1 % axmp=328) NEUTROPHILS ABSOLUTE COUNT (BEAKER) (test 1.96 K/ L 1.56-6.13 ztkp=382) LYMPHOCYTES ABSOLUTE COUNT (BEAKER) (test 2.24 K/ L 1.18-3.74 whlj=616) MONOCYTES ABSOLUTE COUNT (BEAKER) (test 0.42 K/ L 0.24-0.36 tqby=905) EOSINOPHILS ABSOLUTE COUNT (BEAKER) (test 0.11 K/ L 0.04-0.36 dine=743) BASOPHILS ABSOLUTE COUNT (BEAKER) (test 0.03 K/ L 0.01-0.08 niql=929) IMMATURE GRANULOCYTES-RELATIVE PERCENT (BEAKER) 0 % 0-1 (test xwxb=4956)
[2018-06-06] MEDS ORDERED: NA CHLORIDE 0.9% 1,000 ML ONE (16:56)
[2018-06-06] MEDS ORDERED: METOCLOPRAMIDE 10 MG/2mL INJ ONE (16:56)
[2018-06-06] MEDS ORDERED: LORazepam 2 MG/ML VIAL ONE (17:01)
[2018-06-06 17:04] LABS: Absolute Monocytes 0.4 K/uL (0.1-1.3); Basophils % 1.1 % (0-1.3); Eosinophils % 3.3 % (0-4.4); Hematocrit 38.1 % (36.0-45.0); Lymphocytes % 44.1 % (15.3-44.8); MPV 12.1 fL (7.6-11.3); Monocytes % 8.3 % (3.3-12.3); RBC Red Blood Cell Count 4.39 M/uL (3.86-4.86)
[2018-06-06 17:13] LABS: Urine Blood NEGATIVE (NEG); Urine Glucose NEGATIVE (NEG); Urine Specific Gravity 1.015 (1.005-1.030)
[2018-06-06 17:14] LABS: Urine Protein NEGATIVE (NEG)
[2018-06-06 17:25] LABS: ALT/SGPT 41 U/L (12-78); AST/SGOT 22 U/L (15-37); Albumin 3.5 g/dL (3.4-5.0); Alkaline Phosphatase 103 U/L (45-117); BUN Blood Urea Nitrogen 16 mg/dL (7-18); Bicarbonate 28 mmol/L (21-32); Bilirubin Direct < 0.1 mg/dL (0-0.2); Bilirubin Total 0.2 mg/dL (0.2-1.0); Glucose Level 97 mg/dL (74-106); Lipase 141 U/L (73-393); Potassium 3.9 mmol/L (3.5-5.1); Protein, Total 7.2 g/dL (6.4-8.2); Sodium Level 145 mmol/L (136-145); Troponin (Emerg Dept Use Only) < 0.02 ng/mL (0.0-0.045)
--- NOTE | 2018-06-06 18:05 | RAD REPORT ---
EXAM DESCRIPTION: CTAbdomen Pelvis W Contrast - 06/06/2018 5:54 pm CLINICAL HISTORY: Abdominal pain. abdominal pain, vomiting, IV ONLY COMPARISON: Abdomen Pelvis W Contrast dated 08/20/2017; Abdomen Pelvis W Contrast dated 6; Abdomen Pelvis W Contrast dated 12/29/2015 TECHNIQUE: Biphasic CT imaging of the abdomen and pelvis was performed with 100 ml non-ionic IV cont rast. All CT scans are performed using dose optimization technique as appropriate and may include automated exposure control or mA/KV adjustment according to patient size. FINDINGS: The lung bases are clear. Cholecystectomy The liver, spleen, pancreas, adrenal glands and kidneys are within normal limits. No bowel obstruction, free air, free fluid or abscess. Appendectomy. No evidence of significant lym phadenopathy. No suspicious bony findings. IMPRESSION: No acute intra-abdominal or pelvic finding.
--- NOTE | 2018-06-06 18:29 | EDPHYS ---
Physician Documentation [facility] Name: Gifty Parker Age: 42 yrs Sex: Female : 1975 Arrival Date: 06/06/2018 Time: 16:00 Bed 23 Private MD: Marcio Wilson ED Physician Rogelio Negro HPI: 06/06 16:16 This 42 yrs old Female presents to ER via Wheelchair with complaints of jmm Abdominal Pain, Vomiting. 16:16 The patient presents with abdominal pain. This is a 42 year old female with a history jmm of hlp, htn, gastroparesis that presents to the ED with complaints of chronic abdmominal pain, vomiting. Patient states she has gained weight since being discharged from [facility]. Patient is scheduled for gastric pacemaker. patient's diet has been mainly TPN. Patient states she will eat soft softs such as pudding and jello. Home health nurse had concerns today for bowel obstruction due to decreased bowel sounds. . 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 - Social history:: Smoking status: . - Ebola Screening: : Patient denies travel to an Ebola-affected area in the 21 days before illness onset. ROS: 16:16 Constitutional: Negative for fever, chills, and weight loss, Respiratory: Negative for jmm shortness of breath, cough, wheezing, and pleuritic chest pain. 16:16 Back: Negative for injury and pain, : Negative for injury, bleeding, discharge, and swelling, Neuro: Negative for headache, weakness, numbness, tingling, and seizure. 16:16 Cardiovascular: Positive for palpitations. 16:16 Abdomen/GI: Positive for abdominal pain, nausea and vomiting. 16:16 All other systems are negative. Exam: 16:16 Constitutional: This is a well developed, well nourished patient who is awake, alert, jmm and in no acute distress. Head/Face: atraumatic. Eyes: EOMI, no conjunctival erythema appreciated ENT: Moist Mucus Membranes Neck: Trachea midline, Supple Chest/axilla: Normal chest wall appearance and motion. Cardiovascular: Regular rate and rhythm. No edema appreciated Respiratory: Normal respirations, no respiratory distress appreciated 16:16 Abdomen/GI: Inspection: abdomen appears normal, Bowel sounds: diminished, Palpation: abdomen is soft and non-tender, in all quadrants. 16:16 Back: ROM is normal. 16:16 Musculoskeletal/extremity: ROM: intact in all extremities. 16:16 Skin: Appearance: Color: normal in color. 16:16 Neuro: Orientation: is normal, Mentation: is normal, Memory: is normal. 16:16 Psych: Behavior/mood is pleasant, cooperative. Vital Signs: 16:09 BP 112 / 69; Pulse 79; Resp 17; Temp 98.3(TE); Pulse Ox 98% on R/A; Weight 71.67 kg tw2 (R); Pain 6/10; 16:30 BP 99 / 63 RA; Pulse 74; Resp 17 S; Pulse Ox 100% on R/A; rv 17:00 BP 91 / 60 RA; Pulse 77; Resp 17 S; Pulse Ox 100% on R/A; rv 18:39 BP 101 / 68 RA; Pulse 77; Resp 17 S; Pulse Ox 100% on R/A; rv MDM: 16:16 Patient medically screened. evan 18:28 Data reviewed: vital signs, nurses notes. Counseling: I had a detailed discussion with rosalee the patient and/or guardian regarding: the historical points, exam findings, and any diagnostic results supporting the discharge/admit diagnosis, lab results, radiology results, the need for outpatient follow up, to return to the emergency department if symptoms worsen or persist or if there are any questions or concerns that arise at home. ED course: patient states symptoms are improved in the ED. Patient is advised to follow up with GI and is otherwise given strict return precautions. patient understood and agrees with the plan of care. . 06/06 16:38 Order name: Basic Metabolic Panel; Complete Time: 17:34 [facility] 06/06 16:38 Order name: CBC with Diff; Complete Time: 17:23 [facility] 06/06 16:38 Order name: Creatinine for Radiology; Complete Time: 17:34 [facility] 06/06 16:38 Order name: Hepatic Function; Complete Time: 17:34 [facility] 06/06 16:38 Order name: Lipase; Complete Time: 17:34 [facility] 06/06 16:38 Order name: Troponin (emerg Dept Use Only); Complete Time: 17:34 [facility] 06/06 16:38 Order name: IV Saline Lock; Complete Time: 16:58 [facility] 06/06 16:39 Order name: CT Abd/Pelvis - W/Contrast; Complete Time: 18:09 [facility] 06/06 17:10 Order name: Urine Dipstick--Ancillary (enter results); Complete Time: 17:23 06/06 17:10 Order name: Urine --Ancillary (enter results); Complete Time: 17:23 06/06 17:54 Order name: EKG Electrocardiogram; Complete Time: 18:20 [facility] 06/06 16:38 Order name: Labs collected and sent; Complete Time: 16:59 [facility] 06/06 16:38 Order name: EKG - Nurse/Tech; Complete Time: 16:59 [facility] Administered Medications: 16:57 Drug: NS 0.9% 500 ml Route: IV; Rate: bolus; Site: PICC; rv 18:40 Follow up: IV Status: Completed infusion rv 16:57 Drug: Reglan 10 mg Route: IVP; Site: PICC; rv 18:39 Follow up: Response: Nausea is decreased rv 16:57 Drug: Ativan 1 mg Route: IVP; Site: PICC; rv 18:39 Follow up: Response: Pain is decreased rv Disposition: 06/07 07:16 Co-signature as Attending Physician, Rogelio Negro MD I agree with the assessment and [facility] plan of care. Disposition: 06/06/18 18:29 Discharged to Home. Impression: Gastroparesis. - Condition is Stable. - Discharge Instructions: Gastroparesis. - Prescriptions for Reglan 10 mg Oral Tablet - take 1 tablet by ORAL route every 6 hours take 30 minutes before meals and at bedtime; 20 tablet. - Medication Reconciliation Form, Thank You Letter, Antibiotic Education, Prescription Opioid Use form. - Follow up: Marcio Wilson MD; When: 2 - 3 days; Reason: Recheck today's complaints, Continuance of care, Re-evaluation by your physician. Signatures: Dispatcher [employer] EDRogelio Patel MD MD cha Mickail, Joel, PA PA jmm Harriett Graf, RN RN tw2 Matt King, RN RN rv Corrections: (The following items were deleted from the chart) 06/06 18:41 18:29 06/06/2018 18:29 Discharged to Home. Impression: Gastroparesis. Condition is rv Stable. Forms are Medication Reconciliation Form, Thank You Letter, Antibiotic Education, Prescription Opioid Use. Follow up: Marcio Wilson; When: 2 - 3 days; Reason: Recheck today's complaints, Continuance of care, Re-evaluation by your physician. rosalee
--- NOTE | 2018-06-06 18:29 | ER ---
Nurse's Notes [facility] Name: Gifty Parker Age: 42 yrs Sex: Female : 1975 Arrival Date: 06/06/2018 Time: 16:00 Bed 23 Private MD: Marcio Wilson Diagnosis: Gastroparesis Presentation: 06/06 16:06 Presenting complaint: Child states: she has gastroparesis and is on tpn since middle of tw08 March, she has had significant weight gain, 20 lbs, home health nurse came this morning and didn't hear any bowel sounds, vomiting daily since March and has gotten worse, bloated, pt states "i feel like i am 7 months ". Transition of care: patient was not received from another setting of care. Onset of symptoms was June 06, 2018. Risk Assessment: Do you want to hurt yourself or someone else? Patient reports no desire to harm self or others. Initial Sepsis Screen: Does the patient meet any 2 criteria? No. Patient's initial sepsis screen is negative. Does the patient have a suspected source of infection? No. Patient's initial sepsis screen is negative. Care prior to arrival: None. PICC line upper LEFT arm. 16:06 Method Of Arrival: Wheelchair tw2 16:06 Acuity: TAMAR 3 tw2 Triage Assessment: 16:09 General: Appears uncomfortable, Behavior is calm, cooperative, appropriate for age. tw2 Pain: Complains of pain in abdomen. GI: Reports bloating, nausea, vomiting. 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 - Social history:: Smoking status: . - Ebola Screening: : Patient denies travel to an Ebola-affected area in the 21 days before illness onset. Screenin:00 Abuse screen: Denies threats or abuse. Denies injuries from another. Nutritional rv screening: No deficits noted. Tuberculosis screening: No symptoms or risk factors identified. Fall Risk None identified. Assessment: 16:59 General: Appears in no apparent distress. uncomfortable, Behavior is calm, cooperative. rv Pain: Complains of pain in abdomen. Neuro: Level of Consciousness is awake, alert, obeys commands, Oriented to person, place, time, situation. Cardiovascular: Capillary refill < 3 seconds Rhythm is regular. Respiratory: Airway is patent. GI: Bowel sounds present X 4 quads. Abd is soft and non tender X 4 quads. : No signs and/or symptoms were reported regarding the genitourinary system. EENT: No signs and/or symptoms were reported regarding the EENT system. Derm: Skin is intact. Musculoskeletal: No signs and/or symptoms reported regarding the musculoskeletal system. Vital Signs: 16:09 BP 112 / 69; Pulse 79; Resp 17; Temp 98.3(TE); Pulse Ox 98% on R/A; Weight 71.67 kg tw2 (R); Pain 6/10; 16:30 BP 99 / 63 RA; Pulse 74; Resp 17 S; Pulse Ox 100% on R/A; rv 17:00 BP 91 / 60 RA; Pulse 77; Resp 17 S; Pulse Ox 100% on R/A; rv 18:39 BP 101 / 68 RA; Pulse 77; Resp 17 S; Pulse Ox 100% on R/A; rv ED Course: 16:00 Patient arrived in ED. mr 16:00 Marcio Wilson MD is Private Physician. mr 16:08 Triage completed. tw2 16:08 Arm band placed on. tw2 16:12 [facility] m 16:12 Rogelio Negro MD is Attending Physician. [facility] 16:47 Radiology exam delayed due to lab results not completed at this time. (BUN/Creatinine). vm2 17:00 Patient has correct armband on for positive identification. Placed in gown. Bed in low rv position. Call light in reach. Side rails up X 1. Pulse ox on. NIBP on. 17:02 Accessed PICC line. Blood collected. Clean \\T\\ dry. Dressing intact. Good blood return. rv Flushes easily. 17:05 EKG done, by graphics edit technician. reviewed by Yves RYAN. sm3 17:54 CT Abd/Pelvis - W/Contrast In Process Unspecified. EDMS 18:29 Marcio Wilson MD is Referral Physician. jmm 18:40 No provider procedures requiring assistance completed. intact, maintained PICC. rv Administered Medications: 16:57 Drug: NS 0.9% 500 ml Route: IV; Rate: bolus; Site: PICC; rv 18:40 Follow up: IV Status: Completed infusion rv 16:57 Drug: Reglan 10 mg Route: IVP; Site: PICC; rv 18:39 Follow up: Response: Nausea is decreased rv 16:57 Drug: Ativan 1 mg Route: IVP; Site: PICC; rv 18:39 Follow up: Response: Pain is decreased rv Outcome: 18:29 Discharge ordered by MD. jmm 18:41 Discharged to home ambulatory. rv 18:41 Condition: good 18:41 Discharge instructions given to patient, family, Instructed on discharge instructions, follow up and referral plans. medication usage, Demonstrated understanding of instructions, follow-up care, medications, Prescriptions given X 1. 18:41 Patient left the ED. rv Signatures: Dispatcher [employer] EDMS Yves Garnett PA PA jmm Rivera, Mary mr Harriett Graf, RN RN tw2 Анна Humphrey 2 Smita Hardy 3 Matt King, RN RN rv
[2018-06-07 07:22] VITALS: TEMP 98.3
[2018-06-07 07:25] VITALS: O2SAT 100
[2018-06-07 07:28] VITALS: BP 101/68
== END 2018-06-06 18:41 | disposition home or self-care (01) ==
LOC: ER 15:57
DX: K31.84 Gastroparesis (principal); I10 Essential (primary) hypertension; Z88.5 Allergy status to narcotic agent; Z88.8 Allergy status to other drugs, medicaments and biological substances
CPT/HCPCS: 36415; 74177; 80048; 80076; 81003; 81025; 83690; 84484; 85025; 93005; 96361; 96374; 96375; 99284; J2765; J7030; Q9967

== ENCOUNTER → 2023-11-09 | Day surgery (SDC) | payer OTHER ==
[~2023-11-09] MED LIST: FENTANYL CITR 100 MCG/2 ML ONE; LIDOCAINE 2% MPF 5 ML VIAL ONE; MIDAZOLAM HCL 2 MG/2 ML INJ ONE; ROCURONIUM 50 MG/5 ML VIAL IV ONE; SUCCINYLCHOLINE 20 MG/ML (10 ML) IV ONE; propofoL 200 MG/20 ML VIAL IV ONE
[2023-11-09] MEDS: Ringers Lactate 1,000 ML IV ONE (13:10)
[2023-11-09] MEDS: CEFAZOLIN SODIUM 2 GM/VIAL ONE (14:12)
[2023-11-09] MEDS: LIDOCAINE HCL/EPINEPHRINE 20 ML MDV ONE (14:49)
[2023-11-09] MEDS: ONDANSETRON 4 MG/2 ML VIAL ONE (16:21)
[2023-11-09] MEDS: PROMETHAZINE INJ 25 MG/ML AMP ONE (16:43)
[2023-11-09 16:45] VITALS: O2SAT 100
--- NOTE | 2023-11-09 16:54 | RAD REPORT ---
EXAM DESCRIPTION: RAD - Fluoroscopy <1 Hour - 11/09/2023 4:15 pm CLINICAL HISTORY: Sacral neural modulation FINDINGS: Sacral neural modulation performed The examination was performed by Fluoroscopy time .6 minutes. 6 fluoroscopic spot images obtained
[2023-11-09] MEDS: TRAMADOL HCL 50 MG TAB PO ONE (17:10)
[2023-11-09 18:27] VITALS: BP 114/64; TEMP 97.4
--- NOTE | 2023-11-10 07:58 | OP ---
Date of Procedure: 11/09/2023 Surgeon: Helga Brown MD Hired Worker: No assistants. Preoperative Diagnoses: Urinary frequency, incomplete bladder emptying, fecal incontinence, suspecte d painful bladder syndrome/interstitial cystitis. Postoperative Diagnoses: Urinary frequency, incomplete bladder emptying, fecal incontinence, suspect ed painful bladder syndrome/interstitial cystitis. Procedures Performed: 1.Complete InterStim System implantation with incision and implantation of tined quadripolar lead el ectrodes into S3 foramen under fluoroscopic guidance for needle placement. 2.Subcutaneous implantation of sacral nerve neurostimulator. 3.Electronic analysis and programming. Anesthesia: General endotracheal. Specimen: No specimens. Complications: No complications. Drains: No drains. Estimated Blood Loss: Minimal. Findings: Right S3 lead was placed with all 4 leads in good contact with the nerve showing strong pl antonia toe flexion and Tyler. Then, lead pocket was made in the right . The lead was deployed slightly lower past the foramen for the positioning of the lead did not have a response on more than 1 lead despite trying the insertion plane slightly higher in the for amen, medial in the foramen. Therefore, went by response and pictures were taken for lead position _ in the AP view as well. Indications: The patient is a 47-year-old who had significant painful bladder syndrome, urinary urge ncy and frequency. She had incomplete bladder emptying, seen a urologist, tried on alfuzosin. On ur odynamics, there was slightly higher PVR 250 after 440 was voided. Correlation with a log was done a nd definitely has incomplete sensation of emptying. Therefore, her alfuzosin was stopped. We were a lso treating her on the spectrum of irritated bladder symptoms, OAB, and painful bladder syndrome. S he was given Elavil and hydroxyzine. All leads were weaned off quickly seemed to have sig nificantly improved once she was placed on menopausal hormone therapy using . Her urinary urgency and a sensation of incomplete emptying both persisted, so at this point we discus sed about third line therapy as she was not a good candidate for anticholinergic due to her high post void residual. On office PNE, she had significant improvement. Daytime voids were over 20, and now decreased to 8 t o 9 per day and urinary urgency related incontinence had completely resolved. Extensive urgency has also improved. After the dramatic improvement, the patient wanted to proceed with full InterStim Sys tem implantation, and she was consented and brought to the OR. Preoperatively, re-consented and take n back to the OR. Her daughter was present by her side, and all questions and answers were done to t satisfaction. 2 g of Ancef was given. SCDs were placed. Procedure In Detail: When she was in the operating room while she was on her bed itself, she was int ubated and general anesthesia was given. She was placed in a prone position by the OR protocol. Pil lows were placed under her lower abdomen to flattened the sacrum and under the shins to allow the toe s to dangle freely. The patient was prepped in a sterile fashion using Betadine. The C-arm was then draped and moved int o position for fluoroscopic mapping of the sacral region both in the AP and lateral views. Surface m arkings were made by marking the tip of the coccyx in the midline and drawing a line in the middle ma rking out 9, 10, 11, and 12 cm above the tip of the coccyx and then 1 to 2 cm lateral on both sides. Then 2 other markings were made above the 12 cm rahat at 1 cm each. The foraminal borders, sacral foramen, the sciatic notch, and SI joints were all marked out, includin g the midline of the sacrum. Local injection with 1% lidocaine and epinephrine was administered on both sides. A foramen needle w as inserted at 11 cm above and 2 cm lateral to the midline, and needle was dropped into S3. There wa s a good response at 0.9 milliamps with Tyler and plantar flexion of the great toe, so at this poin t the stylet was removed and the guide was placed. The needle was then removed. Incision was made o n the skin through the fascia and proper needle position was confirmed by fluoroscopy. The bidirecti onal guide was then slowly removed after the lead introducer sheath with the dilator was placed over it. It was made sure that the radiopaque marker of the lead introducer sheath did not extend beyond the anterior edge of the sacrum. Dilator was unlocked and removed along with the bidirectional guide . The lead was then placed through the introducer sheath to the first white line, and the positioning w as checked fluoroscopically, and then testing it for Tyler and plantar flexion of the great toe. H ere only lead 1 had mild response to Tyler and lead 2 had strong Tyler and toe, but lead 0 and 3 were completely unresponsive. As the contact with the nerve seemed to be not optimal, the lead was r emoved. Plastic dilator was also removed. The foramen needle was then introduced 1 cm above coming down into the superior portion of the foramen and staying more medial in the foramen. Here, there wa s no response that I could obtain, which is no contact with the nerve. After trying 2 or 3 positions to get response and when there was lack of it, I moved over to the left side and injected the skin a nd periosteal tissue with lidocaine. The needle was inserted into S3 in a very optimal fashion on th e left side, but the response was very poor. I came back over to the same first side, which is the right and the foramen needle was placed 13 cm a sourav the coccyx and 2 cm lateral to the midline. Here, I was able to drop it into the foramen, where there was an excellent response. Although the needle seemed to be in the lateral portion of the for amen, it seemed to have good nerve contact with Tyler and plantar flexion of the great toe. After the stylet was removed, the bidirectional guide was placed. The needle was removed. Incision was made peripheral to the bidirectional guide through the fascial layer. The lead introducer sheath with the dilator was placed over the directional guide and directed into foramen ensuring that the r adiopaque marker of the lead introducer did not extend beyond the anterior edge of the sacrum. The d ilator was then unlocked and removed along with bidirectional guide. The lead was then placed throug h the introducer sheath to the first white line. Then positioning was checked fluoroscopically and t he lead was then further advanced until 3 electrodes were visible below the sacrum. Each electrode w as then tested for location; however, there was not satisfactory response and so the lead was slightl y advanced where the lead 3 also was past the anterior edge, and this is where there was excellent Be llows and plantar flexion of the great toe on all 4 leads. As this was the best lead position, this was left in place. The introducer sheath was retracted under continuous fluoro, deploying the tined leads into the presacral tissue. Further incision was made in the subcutaneous tissues, posterior to the iliac crest and lateral to th e sacrum. Then, blunt dissection was continued until the gluteal fascia was identified on the right side and hemostasis was achieved allowing for sufficient pocket for the neurostimulator. The tunneli ng tool was then passed with a straw from the lead exit site subcutaneously to the incised pocket sit e. The tunneling tool was removed. The lead was then fed through the straw and pulled out of the po cket site. The lead was then cleansed off bodily fluids and dried. The InterStim II neurostimulator header was then brought in and the metal bands were aligned with the blue tip clearly vis ible in the distal portion of the neurostimulator head. The single set screw was tightened with hex wrench. The neurostimulator was placed over the subcutaneous pocket with the etched identification s toi placed upwards and excessive lead unwrapped counterclockwise around the neurostimulator. The pro gramming head was then placed over the implanted neurostimulator in a sterile cover to ensure adequat e lead connection and that the parameters were within normal limits. Impedances were confirmed to be within normal limits. Then, the wounds were irrigated with antibiotic solution and sterile water, a nd closed with 3-0 Vicryl in interrupted fashion x3. The subcuticular sutures were placed using 4-0 Monocryl on the skin both at the implantation pocket site as well as the lead sites. Dermabond was p laced on the skin. Bandages were placed. The patient was transferred to the recovery room in the be d in stable condition. EBL was minimal. Using the clinician net developer programmer, the generator was programme d and settings entered into the chart. The patient tolerated the procedure well. Her results were discussed with her daughter. RAH/JACOB Voice ID: [id number] Report ID: [id number]
== END ==
LOC: OR 12:23
PROVIDERS: ATTEND Obstetrics & Gynecology
PROC: 01HY3MZ Insertion of Neurostimulator Lead into Peripheral Nerve, Percutaneous Approach (ICD-10-PCS; principal; 2023-11-09 14:00)
PROC: 0JH73BZ Insertion of Single Array Stimulator Generator into Back Subcutaneous Tissue and Fascia, Percutaneous Approach (ICD-10-PCS; 2023-11-09 14:00)
DX: R15.9 Full incontinence of feces (principal); R35.0 Frequency of micturition; R39.14 Feeling of incomplete bladder emptying; R39.15 Urgency of urination; F41.9 Anxiety disorder, unspecified; F32.A Depression, unspecified; K21.9 Gastro-esophageal reflux disease without esophagitis; K58.9 Irritable bowel syndrome, unspecified
CPT/HCPCS: 76000; C1767; C1778; J2001; J2250; J2405; J2550; J2704; J3010; J7120